=== PATIENT | female | born 1945 | race Caucasian/White ===

== ENCOUNTER → 2018-04-15 14:48 | Outpatient (CLI) | payer MEDICARE, OTHER, SELFPAY ==
--- NOTE | 2018-04-15 | DI.US.S_ITS ---
PROCEDURE: US ARTERIAL DUPLEX LE BI INDICATIONS: PERIPHERAL VASCULAR DISEASE, UNSPECIFIED TECHNIQUE: Color and pulse Doppler interrogation was performed of both lower extremity arterial systems, with image documentation. COMPARISON: None. FINDINGS: Right lower extremity: Common femoral artery: 145 cm/sec, with monophasic flow. Deep femoral artery: 59 cm/sec, with monophasic flow. Proximal superficial femoral artery: 85 cm/sec, with monophasic flow. Mid superficial femoral artery: 87 cm/sec, with monophasic flow. Distal superficial femoral artery: 86 cm/sec, with monophasic flow. Popliteal artery: 52 cm/sec, with monophasic flow. Posterior tibial artery: 35 cm/sec, with monophasic flow. Anterior tibial artery/dorsalis pedis: 14 cm/sec, with monophasic flow. Grimaldo-scale imaging description: Significant calcific and soft plaque throughout Left lower extremity: Common femoral artery: 195 cm/sec, with monophasic flow. Deep femoral artery: 298 cm/sec, with monophasic flow. Proximal superficial femoral artery: 314 cm/sec, with monophasic flow. Mid superficial femoral artery: 36 cm/sec, with monophasic flow. Distal superficial femoral artery: 76 cm/sec, with monophasic flow. Popliteal artery: 51 cm/sec, with monophasic flow. Posterior tibial artery: 24 cm/sec, with monophasic flow. Anterior tibial artery/dorsalis pedis: 28 cm/sec, with monophasic flow. Grimaldo-scale imaging description: Significant calcific and soft plaque throughout IMPRESSION: Monophasic flow is seen within the lower extremity arterial vasculature bilaterally indicating significant proximal disease above the level of the common femoral arteries, likely either a high-grade stenosis of the distal aorta or both iliac arteries, versus occlusion and reperfusion by collateral flow. Note is made of elevation of monophasic flow velocity at the common femoral artery and profunda femoris on the left, consistent with superimposed high-grade stenosis in those 2 areas. Followup by MR angiography with runoff procedure to include the aorta and iliac arteries bilaterally likely is warranted if some form of intervention is anticipated. Dictated by: Guevara Wagner M.D. on 04/15/2018 at 16:08 Approved by: Guevara Wagner M.D. on 04/15/2018 at 16:13
== END ==
PROVIDERS: PCP Internal Medicine; Visit Provider Internal Medicine
DX: I73.9 Peripheral vascular disease, unspecified (principal)
CPT/HCPCS: 93925

== ENCOUNTER 2018-04-20 11:26 | Emergency (ER) | payer MEDICARE, OTHER, SELFPAY ==
[2018-04-20 12:03] VITALS: BP 152/80; PULSE 55; RESP 13; TEMP 36.7; O2SAT 98
--- NOTE | 2018-04-20 13:15 | ED.URI ---
HPI - URI/Sore Throat <WISAM Shah - Last Filed: 04/20/18 21:52> General Chief Complaint: Upper Respiratory Symptoms Stated Complaint: Thinks flu or bronchitis Time Seen by Provider: 04/20/18 13:15 Source: patient Mode of arrival: ambulatory Limitations: no limitations History of Present Illness HPI Narrative: 73-year-old female with history of COPD is a former smoker here for complaint of having cough for the past week. She reports that she has had a productive cough she has also had nasal congestion and sore throat. She does report having some generalized malaise as well. Positive chills no known fever. She is tolerating p.o. intake well. She is ambulatory into the emergency room. She denies any stressors or relievers of her symptoms. She is able speak full sentences. No acute distress. MD Complaint: cough Related Data Previous Rx's Medication Instructions Recorded prednisone 40 mg PO DAILY #8 tab 04/20/18 Allergies Allergy/AdvReac Type Severity Reaction Status Date / Time codeine [CODEINE] Allergy Severe Unverified 05/23/17 12:05 shellfish derived Allergy Unknown Unverified 05/23/17 12:05 [SHELLFISH DERIVED] Review of Systems <WISAM Shah - Last Filed: 04/20/18 21:52> Constitutional Reports chills, Denies fever(s), Denies lethargy, Reports malaise and Denies weakness Eyes Denies change in vision, Denies eye discharge, Denies irritation and Denies loss of vision ENT Ears, Nose, Mouth, and Throat: Denies change in voice, Denies neck pain, Denies sore throat and Denies throat swelling Cardiovascular Denies chest pain, Denies irregular heart rhythm, Denies lightheadedness, Denies palpitations and Denies orthopnea Respiratory Reports cough and Denies wheezing Gastrointestinal Gastrointestinal: Denies abdominal pain, Denies change in bowel habits, Denies diarrhea, Denies nausea and Denies vomiting Genitourinary Denies hematuria, Denies flank pain, Denies urinary incontinence and Denies urinary urgency Musculoskeletal Denies neck pain Integumentary/Breasts Denies pruritus, Denies erythema, Denies rash and Denies wounds Neurologic Denies confusion, Denies loss of vision and Denies weakness Psychiatric Denies anxiety, Denies confusion, Denies depression, Denies homicidal ideation and Denies suicidal ideation Endocrine Denies palpitations Allergic/Immunologic Denies urticaria, Denies throat swelling and Denies wheezing Exam <WISAM Shah - Last Filed: 04/20/18 21:52> Initial Vital Signs Initial Vital Signs: Vital Signs Temperature 98.1 F 04/20/18 12:03 Pulse Rate 55 L 04/20/18 12:03 Respiratory Rate 13 04/20/18 12:03 Blood Pressure 152/80 H 04/20/18 12:03 Pulse Oximetry 98 04/20/18 12:03 Const General: cooperative and well developed Nutritional Appearance: well nourished Orientation: alert, awake, oriented x3 and not confused HENMT Mouth: oral mucosae normal, oropharynx normal and moist mucous membranes Eyes Conjunctivae: conjunctivae normal Sclera: sclerae normal Pupils: PERRL EOM: EOM intact bilaterally Resp Effort & Inspection: normal respiratory effort, able to speak in complete sentences, no respiratory distress and no use of accessory muscles Auscultation: clear to auscultation bilaterally, no rales, no rhonchi and no wheezes Cardio Rate: regular rate Rhythm: regular rhythm Heart Sounds: no click, no gallops, no murmurs and no rubs Pulses: normal peripheral pulses Skin General: no rashes or lesions noted, No jaundice and No petechiae Neuro General: alert, oriented x3, gait normal and no focal motor deficits Speech: speech normal <DO Orly Hays Last Filed: 04/24/18 07:15> Initial Vital Signs Initial Vital Signs: Vital Signs Temperature 98.1 F 04/20/18 12:03 Pulse Rate 55 L 04/20/18 12:03 Respiratory Rate 13 04/20/18 12:03 Blood Pressure 152/80 H 04/20/18 12:03 Pulse Oximetry 98 04/20/18 12:03 Course <WISAM Shah - Last Filed: 04/20/18 21:52> Orders Ordered: ED Orders 04/20/18 13:35 XR chest 2V Stat 04/20/18 14:04 Influenza A and B by PCR Rapid Stat Vital Signs - 8 hr 04/20/18 14:44 Pulse Rate 73 Respiratory Rate 16 Blood Pressure [Right Arm] 117/53 L Pulse Oximetry 93 <Sapphire Chambers DO - Last Filed: 04/24/18 07:15> Orders Ordered: ED Orders 04/20/18 13:35 XR chest 2V Stat 04/20/18 14:04 Influenza A and B by PCR Rapid Stat Vital Signs - 8 hr 04/20/18 14:44 Pulse Rate 73 Respiratory Rate 16 Blood Pressure [Right Arm] 117/53 L Pulse Oximetry 93 MDM - URI/Sore Throat <WISAM Shah - Last Filed: 04/20/18 21:52> Lab Data Lab Results 04/20/18 Range/Units 14:04 Influenza A & B (PCR) Positive, type a A (Negative) MDM Narrative Medical decision making narrative: Chest x-ray was obtained and was negative for any acute findings. Influenza swab was obtained and was positive for influenza A. Due to continued cough and history of COPD she is prescribed a short course of prednisone to help with exacerbation of her COPD. Follow up with primary care provider later this week. Plenty of fluids and rest. [id number] Tylenol or Motrin as needed for any discomfort for any worsening symptoms return emergency room. <Sapphire Chambers DO - Last Filed: 04/24/18 07:15> Lab Data Lab Results 04/20/18 Range/Units 14:04 Influenza A & B (PCR) Positive, type a A (Negative) Discharge Plan Departure Patient Disposition: Home Clinical Impression: Influenza A Discharge Date/Time: 04/20/18 15:09 Interventions: ED Discharge Assessment Last Done: 04/20/18 15:16 Instructions: DI for Influenza -- Adult Activity Restrictions/Additional Instructions: Chest x-ray was obtained today and was negative for any acute findings. No signs of pneumonia. Influenza swab was obtained today and was positive for influenza. Plenty of fluids and rest. [id number] Tylenol or Motrin as needed for any discomfort or fevers. High due to prolonged cough will treat for COPD exacerbation with short course of prednisone. Follow up with her primary care provider later this week. For any worsening symptoms return to the emergency room. Prescriptions: New prednisone 20 mg tablet 40 mg PO DAILY Qty: 8 RF: 0 Referrals: Filipe Soni MD [Primary Care Provider] - <Sapphire Chambers DO - Last Filed: 04/24/18 07:15> Cosign ED Attending Cosignature Attestation: I was immediately available in the department for consultation. This documentation has been reviewed and I agree with assessment and plan. Supervised by Sapphire Chambers, DO
--- NOTE | 2018-04-20 13:35 | DI.RAD.S_ITS ---
PROCEDURE: XR CHEST 2V INDICATIONS: cough TECHNIQUE: 2 views of the chest were acquired. COMPARISON: None. FINDINGS: Surgical changes and devices: None. Lungs and pleura: Stable appearance of minimal streaky basilar opacities likely representing atelectasis versus scarring. No acute consolidation or airspace disease. Lungs are otherwise clear. No pleural effusions or pneumothorax. Mediastinum: Mediastinal contours are normal. Heart size is normal. Bones and chest wall: No suspicious bony abnormalities. Soft tissues appear unremarkable. IMPRESSION: Stable examination of the chest without acute cardiopulmonary abnormalities or focal airspace disease. Dictated by: Dipak Mondragon M.D. on 04/20/2018 at 14:21 Approved by: Dipak Mondragon M.D. on 04/20/2018 at 14:23
--- NOTE | 2018-04-20 14:27 | PC.NURSE ---
hx of bronchitis, reports, coughing for 2 weeks with yellow sputum, denies fever or vomiting. breath sound clear to auscultate through out.
--- NOTE | 2018-04-20 14:39 | PC.NURSE ---
xray to be read.
[2018-04-20 14:44] VITALS: BP 117/53; PULSE 73; RESP 16; O2SAT 93
--- NOTE | 2018-04-20 14:46 | PC.NURSE ---
orange juice and crackers provided, states, she has been waiting long, and very hungry.
== END 2018-04-20 15:09 | disposition home or self-care (01) ==
PROVIDERS: Emergency Provider Nurse Practitioner Family; PCP Internal Medicine
DX: J11.1 Influenza due to unidentified influenza virus with other respiratory manifestations (principal)
CPT/HCPCS: 71046; 87400; 99283

== ENCOUNTER 2018-10-12 00:01 | Emergency (ER) | payer MEDICARE, OTHER, SELFPAY ==
[2018-10-12 00:47] VITALS: BP 162/65; PULSE 52; RESP 24; TEMP 36.4; O2SAT 97; BMI 27.4
--- NOTE | 2018-10-12 00:47 | DI.RAD.S_ITS ---
PROCEDURE: XR CHEST 1V INDICATIONS: shortness of breath, cough 4.5 days TECHNIQUE: One view of the chest was acquired. COMPARISON: [facility], , CHEST 2 VIEW, 03/14/2017, 10:14. [facility], , CHEST 2 VIEW, 10/27/2014, 0:36. [facility], , XR CHEST 2V, 04/20/2018, 13:53. FINDINGS: Surgical changes and devices: None. Lungs and pleura: Lungs are clear. No pleural effusions or pneumothorax. The lungs are hyperexpanded. Mediastinum: Mediastinal contours appear normal. Heart size is normal. Atherosclerotic calcification of the aortic arch is noted. Bones and chest wall: No suspicious bony lesions. Age-appropriate bony degenerative changes are seen. Overlying soft tissues appear unremarkable. IMPRESSION: Hyperexpanded lungs, without an acute cardiopulmonary process identified. Dictated by: Anthony Cowart M.D. on 10/12/2018 at 8:00 Approved by: Anthony Cowart M.D. on 10/12/2018 at 8:01
[2018-10-12 00:57] VITALS: BP 132/51; PULSE 55; RESP 18; O2SAT 92
[2018-10-12 01:14] LABS: Add Manual Diff / Slide Review NO; Basophils Absolute Auto 100 /uL (0-100); Basophils Percent Auto 1.4 % (0-2); Eosinophils Absolute Auto 600 /uL (0-450); Eosinophils Percent Auto 6.1 % (2-4); Hematocrit 38.6 % (36-46); Hemoglobin 13.2 g/dL (12.0-16.0); Lymphocytes Absolute Auto 3400 /uL (1100-4500); Lymphocytes Percent Auto 35.4 % (25-40); Mean Corpuscular HGB Conc 34.2 % (30-36); Mean Corpuscular Hemoglobin 32.7 PG (26-34); Mean Corpuscular Volume 95.7 fL (80-100); Monocytes Absolute Auto 800 /uL (0-900); Monocytes Percent Auto 8.5 % (3-14); Neutrophils Absolute Auto 4700 /uL (1500-7000); Neutrophils Percent Auto 48.6 % (50-75); Platelet Count 256 X10^3/uL (150-400); Red Blood Cell Count 4.04 X10^6/uL (4.0-5.2); Red Cell Distribution Width 13.3 % (11.6-14.8); White Blood Cell Count 9.6 X10^3/uL (4.5-11.0)
[2018-10-12 01:16] LABS: INR 0.9 (0.9-1.3); Prothrombin Time 9.8 SECONDS (10.1-12.7)
[2018-10-12 01:18] LABS: PTT Partial Thromboplastin Tim 31 SECONDS (26.4-36.2)
[2018-10-12 01:19] LABS: Alanine Aminotransferase 22 IU/L (9-52); Albumin 3.9 g/dL (3.5-5.0); Albumin Globulin Ratio 1.4 (1.0-2.8); Alkaline Phosphatase 50 U/L (38-126); Aspartate Aminotransferase 21 IU/L (14-36); Bilirubin Total 0.4 mg/dL (0.2-1.3); Blood Urea Nitrogen 15 mg/dL (7-17); Calcium 9.1 mg/dL (8.4-10.2); Carbon Dioxide 33 mmol/L (22-32); Chloride 98 mmol/L (98-107); Creatine Kinase 38 U/L (30-135); Estimated Glomerular Filt Rate > 60.0 mL/min (>60); Globulin 2.7 g/dL (1.7-4.1); Glucose 145 mg/dL (80-110); HEMOLYSIS < 15 (0-50); Lipase 100 U/L (23-300); Potassium 4.8 mmol/L (3.4-5.1); Sodium 135 mmol/L (137-145); Total Protein 6.6 g/dL (6.3-8.2)
[2018-10-12 01:24] VITALS: BP 133/50; PULSE 56; RESP 18; O2SAT 94
[2018-10-12 01:27] LABS: B Type Natriuretic Peptide 133 (<100)
[2018-10-12] MEDS: ASPIRIN 81 MG CHEW TAB 324 MG PO (01:28)
[2018-10-12 01:31] LABS: Troponin I < 0.012 ng/mL (0.01-0.034)
[2018-10-12] MEDS: SODIUM CHLORIDE 0.9% 1,000 ML 150 ML IV (01:44)
--- NOTE | 2018-10-12 02:03 | ED_ITS ---
HPI - SOB/Dyspnea General Chief Complaint: Shortness of Breath/Dyspnea Stated Complaint: difficulty breathing, coughing 4-5 days Time Seen by Provider: 10/12/18 01:57 Source: patient and family () Mode of arrival: ambulatory Limitations: no limitations History of Present Illness HPI Narrative: This is a 73-year-old comes emergency department complaint of shortness of breath. She states she has had shortness of breath and she quit smoking tobacco 5 years ago. She has been increasingly short of breath for the last week. She finds that she short of breath with exertion, she denies any chest pressure or pain. She does have a cough which has some clear productive phlegm which is normal for her. She states she can lay flat on her side and she does find if she lays flat on her back it makes her cough more. She does not have to be reclined to sleep. She denies any fevers or chills. She states she also has runny nose which is worsened by the weather and pollen and will make her symptoms worse. She has a history of stroke she does not know she has COPD but states she was a long-time smoker for decades she was on albuterol and what sounds like a steroid inhaler. She stop the steroid inhaler because she states someone told her that she could take them together and it was not as helpful as the albuterol. She has a history of hypertension, dyslipidemia and takes aspirin and Plavix as well as metformin and Lantus. States her only prior surgeries hysterectomy. Primary care is Dr. Soni. Related Data Previous Rx's Medication Instructions Recorded prednisone 40 mg PO DAILY #8 tab 04/20/18 furosemide [Lasix] 20 mg PO DAILY #3 tab 10/12/18 prednisone 50 mg PO DAILY #5 tab 10/12/18 Allergies Allergy/AdvReac Type Severity Reaction Status Date / Time codeine [CODEINE] Allergy Unknown Verified 10/12/18 00:47 shellfish derived Allergy Unknown Verified 10/12/18 00:47 [SHELLFISH DERIVED] Review of Systems Review of Systems ROS Unobtainable: All systems reviewed & are unremarkable except as noted in HPI and below Constitutional Constitutional: Denies chills, Denies fever(s), Denies lethargy and Denies weakness Neurologic Neurologic: Denies weakness PFSH Social History Smoking Status: Current every day smoker Exam Narrative Exam Narrative: GEN: well nourished, well appearing elderly female, alert and oriented x 3, patient appears to be in mild distress. HEENT: Atraumatic, pupils are equal round reactive to light, extraocular mo vements are intact, nares are clear. Throat is clear without any exudates, erythema, tonsillar enlargement or uvular deviation HEART: Regular rate and rhythm without murmur, clicks, rubs. No carotid bruits, pulses are equal in upper and lower extremities. Mild pedal edema. LUNGS:Lungs decreased bilaterally, very mild inspiratory wheeze, no rales, crackles, chest moves symmetrically. Tachypnea or accessory muscle use. Patient can speak in full sentences. ABD:bowel sounds normal, soft, non-tender, no guarding, rebound, rigidity, no masses noted, no hepatosplenomegaly :No CVA tenderness MSCL: Non-tender, no muscle atrophy, muscles strength 5/5 upper and lower extremities, full range of motion, normal gait NEURO:CN 2-12 intact, sensation normal Initial Vital Signs Initial Vital Signs: Vital Signs Temperature 97.5 F L 10/12/18 00:47 Pulse Rate 52 L 10/12/18 00:47 Respiratory Rate 24 10/12/18 00:47 Blood Pressure 162/65 H 10/12/18 00:47 Pulse Oximetry 97 10/12/18 00:47 Course Orders Ordered: ED Orders 10/12/18 00:47 XR chest 1V Stat EKG-12 Lead Stat 10/12/18 00:55 B Type Natriuretic Peptide Stat Complete Blood Count AUTO DIFF Stat Comprehensive Metabolic Panel Stat Lipase Stat Partial Thromboplastin Time Stat Prothrombin Time INR Stat Troponin & CK Cardiac Panel Stat 10/12/18 02:00 Urine Culture Stat Urine Microscopic Stat Discontinued Medications Albuterol/Ipratropium (Duoneb) 3 ml INH NOW ONE Stop: 10/12/18 02:24 Last Admin: 10/12/18 02:30 Dose: 3 ml Documented by: ARIS Aspirin (Aspirin Chew) 324 mg PO NOW ONE Stop: 10/12/18 00:48 Last Admin: 10/12/18 01:28 Dose: 324 mg Documented by: KRISTA Sodium Chloride (Normal Saline 0.9%) 1,000 mls @ 150 mls/hr IV CONT KIMBERLY Last Infusion: 10/12/18 02:30 Dose: 0 mls/hr Documented by: Admin: 10/12/18 01:44 Dose: 150 mls/hr Documented by: KRISTA Methylprednisolone (Solu-Medrol 125 Mg Vial) 125 mg IV NOW ONE Stop: 10/12/18 02:24 Last Admin: 10/12/18 02:31 Dose: 125 mg Documented by: KRISTA Vital Signs Vital signs: Vital Signs - 8 hr 10/12/18 00:47 10/12/18 00:57 10/12/18 01:24 Temperature 97.5 F L Pulse Rate 52 L 55 L 56 L Respiratory Rate 24 18 18 Blood Pressure 162/65 H Blood Pressure [Left Arm] 132/51 L 133/50 L Pulse Oximetry 97 92 94 10/12/18 02:30 10/12/18 03:04 Temperature Pulse Rate 53 L 53 L Respiratory Rate 18 18 Blood Pressure Blood Pressure [Left Arm] 141/57 H Pulse Oximetry 95 98 MDM - SOB/Dyspnea Lab Data Attestation: I reviewed the patient's lab results. Result diagrams: 10/12/18 00:55 10/12/18 00:55 Labs: Lab Results 10/12/18 10/12/18 10/12/18 Range/Units 00:55 00:55 00:55 WBC 9.6 (4.5-11.0) X10^3/uL RBC 4.04 (4.0-5.2) X10^6/uL Hgb 13.2 (12.0-16.0) g/dL Hct 38.6 (36-46) % MCV 95.7 (80-100) fL MCH 32.7 (26-34) PG MCHC 34.2 (30-36) % RDW 13.3 (11.6-14.8) % Plt Count 256 (150-400) X10^3/uL Neut % (Auto) 48.6 L (50-75) % Lymph % (Auto) 35.4 (25-40) % [place] % (Auto) 8.5 (3-14) % Eos % (Auto) 6.1 H (2-4) % Baso % (Auto) 1.4 (0-2) % Neut # (Auto) 4700 (4659-7645) /uL Lymph # (Auto) 3400 (7663-8917) /uL [place] # (Auto) 800 (0-900) /uL Eos # (Auto) 600 H (0-450) /uL Baso # (Auto) 100 (0-100) /uL PT 9.8 L (10.1-12.7) SECONDS INR 0.9 (0.9-1.3) APTT 31 (26.4-36.2) SECONDS Sodium 135 L (137-145) mmol/L Potassium 4.8 (3.4-5.1) mmol/L Chloride 98 (98-107) mmol/L Carbon Dioxide 33 H (22-32) mmol/L BUN 15 (7-17) mg/dL Creatinine 0.50 L (0.52-1.04) mg/dL Estimated GFR > 60.0 (>60) mL/min BUN/Creatinine Ratio 30.0 H (6-22) Glucose 145 H (80-110) mg/dL Calcium 9.1 (8.4-10.2) mg/dL Total Bilirubin 0.4 (0.2-1.3) mg/dL AST 21 (14-36) IU/L ALT 22 (9-52) IU/L Alkaline Phosphatase 50 (38-126) U/L Total Creatine Kinase 38 (30-135) U/L CK-MB (CK-2) TNP CK-MB (CK-2) Rel Index TNP Troponin I < 0.012 (0.01-0.034) ng/mL B-Natriuretic Peptide 133 H (<100) Total Protein 6.6 (6.3-8.2) g/dL Albumin 3.9 (3.5-5.0) g/dL Globulin 2.7 (1.7-4.1) g/dL Albumin/Globulin Ratio 1.4 (1.0-2.8) Lipase 100 (23-300) U/L Urine RBC (0-5/HPF) Urine WBC (0-5/HPF) Ur Squamous Epith Cells (0-5/HPF) Urine Bacteria (None) Ur Culture Indicated? 10/12/18 Range/Units 02:00 WBC (4.5-11.0) X10^3/uL RBC (4.0-5.2) X10^6/uL Hgb (12.0-16.0) g/dL Hct (36-46) % MCV (80-100) fL MCH (26-34) PG MCHC (30-36) % RDW (11.6-14.8) % Plt Count (150-400) X10^3/uL Neut % (Auto) (50-75) % Lymph % (Auto) (25-40) % [place] % (Auto) (3-14) % Eos % (Auto) (2-4) % Baso % (Auto) (0-2) % Neut # (Auto) (6507-9499) /uL Lymph # (Auto) (4456-0440) /uL [place] # (Auto) (0-900) /uL Eos # (Auto) (0-450) /uL Baso # (Auto) (0-100) /uL PT (10.1-12.7) SECONDS INR (0.9-1.3) APTT (26.4-36.2) SECONDS Sodium (137-145) mmol/L Potassium (3.4-5.1) mmol/L Chloride (98-107) mmol/L Carbon Dioxide (22-32) mmol/L BUN (7-17) mg/dL Creatinine (0.52-1.04) mg/dL Estimated GFR (>60) mL/min BUN/Creatinine Ratio (6-22) Glucose (80-110) mg/dL Calcium (8.4-10.2) mg/dL Total Bilirubin (0.2-1.3) mg/dL AST (14-36) IU/L ALT (9-52) IU/L Alkaline Phosphatase (38-126) U/L Total Creatine Kinase (30-135) U/L CK-MB (CK-2) CK-MB (CK-2) Rel Index Troponin I (0.01-0.034) ng/mL B-Natriuretic Peptide (<100) Total Protein (6.3-8.2) g/dL Albumin (3.5-5.0) g/dL Globulin (1.7-4.1) g/dL Albumin/Globulin Ratio (1.0-2.8) Lipase (23-300) U/L Urine RBC None seen (0-5/HPF) Urine WBC 0-1/hpf (0-5/HPF) Ur Squamous Epith Cells 1-5 /hpf (0-5/HPF) Urine Bacteria Few (2-10) H (None) Ur Culture Indicated? Specimen cultured Urine Dip Bedside Urine Glucose Negative Bedside Urine Bilirubin - Negative Urine Specific [place] 1.005 Bedside Urine Occult Blood - Negative Bedside Urine pH 6.0 Bedside Urine Protein +/- 15 Bedside Urine Urobilinogen - Negative Bedside Urine Nitrite - Negative Bedside Urine Leukocytes + 70 Esterase Imaging Data Chest x-ray: My impression: Patient's chest x-ray appears similar to prior with streaky opacities likely atelectasis versus scarring. There is no acute consolidation, no passed secretion responsive pneumonia, no pulmonary edema appreciated. No pneumothorax or pleural effusion. No acute changes to mediastinal contours. ECG Data Attestation: I personally reviewed and interpreted this ECG as follows: Prior ECG tracings: not available for review Interpretation: Sinus bradycardia first-degree AV block, rate of 54, P are 212, QRS of 112 and QTC of 409. No priors available. MDM Narrative Medical decision making narrative: Patient's chest x-ray does not show any acute changes come physical exam she has some mild pedal edema but otherwise is not fluid overloaded. no acute changes, sodium slightly low 135 CO2 is elevated at 33 and glucose is 145 with a BNP of 133 and a negative troponin. For patient has had slowly worsening shortness of breath which is acutely worsen. She quit using her steroid inhaler 2 or 3 weeks ago which may be contributing to her symptoms and we had a long discussion about how this medication is important to take whether she feels good or bad even though she does not appreciate a big change. Discharge Plan Departure Patient Disposition: Home Clinical Impression: COPD with exacerbation Discharge Date/Time: 10/12/18 03:12 Instructions: Chronic Obstructive Pulmonary Disease Activity Restrictions/Additional Instructions: Follow up with your physician in the next week for recheck, call for an appointment on Sunday. Continue your albuterol inhaler every 4 hours as needed. Continue your steroid inhaler daily whether your lungs feel good or bad. Take steroids once daily until gone. If the swelling in your extremities worsening, start diuretic. Return to the emergency department for fevers greater than 100.4 F, worsening shortness of breath, new chest pain or pressure, worsening swelling in your lower extremities, lightheadedness, passing out, persistent vomiting or new or concerning symptoms. Prescriptions: New prednisone 50 mg tablet 50 mg PO DAILY Qty: 5 RF: 0 furosemide [Lasix] 20 mg tablet 20 mg PO DAILY Qty: 3 RF: 0 No Action prednisone 20 mg tablet 40 mg PO DAILY Qty: 8 RF: 0 Referrals: Filipe Soni MD [Primary Care Provider] -
[2018-10-12 02:10] LABS: RBC Urine None Seen (0-5/HPF)
[2018-10-12 02:18] LABS: Bacteria Urine Few (2-10); Culture Indicated Urine Specimen Cultured; Squamous Epithelial Cell Urine 1-5 /HPF (0-5/HPF); WBC Urine 0-1/HPF (0-5/HPF)
[2018-10-12 02:30] VITALS: PULSE 53; RESP 18; O2SAT 95
[2018-10-12] MEDS: ALBUTEROL/IPRATROPIUM 3 ML AMPUL INH (02:30)
[2018-10-12] MEDS: methylPREDNISolone 125 MG/2 ML VIAL IV (02:31)
[2018-10-12 03:04] VITALS: BP 141/57; PULSE 53; RESP 18; O2SAT 98
== END 2018-10-12 03:12 | disposition home or self-care (01) ==
PROVIDERS: Emergency Provider Emergency Medicine; PCP Internal Medicine
DX: J44.1 Chronic obstructive pulmonary disease with (acute) exacerbation (principal)
CPT/HCPCS: 36415; 71045; 80053; 81003; 81015; 82550; 83690; 83880; 84484; 85025; 85610; 85730; 87086; 93005; 94640; 96361; 96374; 99283; 99285; J2930

== ENCOUNTER 2019-06-22 12:27 | Emergency (ER) | payer MEDICARE, OTHER, SELFPAY ==
[2019-06-22 12:31] VITALS: BP 149/63; PULSE 60; RESP 14; TEMP 35.7; O2SAT 96; BMI 30.6
--- NOTE | 2019-06-22 12:43 | ED.GENADULT ---
HPI - General Adult General Chief complaint: Diabetic Problem Stated complaint: Generalized Weakness Source: family and EMS Mode of arrival: EMS History of Present Illness HPI narrative: CC: acute hypoglycemia HPI: The patient is a 74-year-old female who was at home alone by herself when she took her Lantus insulin 45 units and then did not eat. Her was out of the house doing errands and when he came back he thought that the patient was just sleeping. However the patient did not respond and was very difficult to arouse. EMS was called and the paramedics noted that her blood sugar was 37. They administered the 25 IV and her blood sugar came up to 219. When she arrived in the emergency department her blood sugar was 178 when we checked it. The patient was much more awake and alert. She had no other complaints. She denies any chest pain any cough difficulty in breathing any seizure activity or seizures, no change in vision loss of vision or double vision. She denied having a headache numbness or tingling paresthesias anesthesia is or paresis. She denies having any pain or discomfort. The patient is a former smoker having not smoked for the last 5 years. She does not drink alcohol use any drugs or use marijuana. Related Data Previous Rx's Medication Instructions Recorded prednisone 40 mg PO DAILY #8 tab 04/20/18 furosemide [Lasix] 20 mg PO DAILY #3 tab 10/12/18 prednisone 50 mg PO DAILY #5 tab 10/12/18 Allergies Allergy/AdvReac Type Severity Reaction Status Date / Time codeine [CODEINE] Allergy Unknown Verified 06/22/19 12:31 shellfish derived Allergy Unknown Verified 06/22/19 12:31 [SHELLFISH DERIVED] Review of Systems Review of Systems Narrative: Her review of systems were all negative except for those mentioned in the history of present illness. Patient History Social History Smoking Status: Current every day smoker Smoking Status: Current every day smoker Substance Use Type: does not use Exam Narrative Exam Narrative: PHYSICAL EXAM: CONSTITUTIONAL: Awake, Alert, Oriented, Coherent, Cooperative in NAD. Does not appear toxic or ill at this time. HEAD: AT/NC EENT: PERRL, FROM of eyes, no discharge, no nystagmus MOUTH: The patient is wearing a mask. NECK: Supple, no obvious JVD, Trachea is midline without stridor, no palpable LN. SPINE: Palpation of the cervical, Thoracic, Lumbar or Sacral spine reveals no gross deformity or tenderness. No CVA tenderness. THORAX: No deformity, retractions, chest wall tenderness. LUNGS: Clear, symmetrical breath sounds without respiratory distress. HEART: Normal heart tones, regular rhythm and rate without murmur. ABDOMEN: Soft, non-tender, normal bowel sounds without guarding, rebound, rigidity or palpable mass. EXTREMITIES: No edema, deformity, tenderness or cyanosis. SKIN: No rash, bruising, petechiae or purpura. NEURO: Awake, alert, oriented, conversive, cranial nerves II-XII are symmetrical , moves all 4 extremities and is ambulatory. Initial Vital Signs Initial Vital Signs: Vital Signs Temperature 96.3 F L 06/22/19 12:31 Pulse Rate 60 06/22/19 12:31 Respiratory Rate 14 06/22/19 12:31 Blood Pressure 149/63 H 06/22/19 12:31 Pulse Oximetry 96 06/22/19 12:31 Course Course Course Narrative: The patient's laboratory chemistries were within normal limits and the patient was discharged home. She was told that she needs to eat something every 2 hours for the next 12 hours. Prior to leaving we gave her something to eat. She was advised to go out and eat a larger meal. Orders Ordered: ED Orders 06/22/19 12:39 CMP [Comprehensive Metabolic Panel] Stat Complete Blood Count AUTO DIFF Stat EKG-12 Lead Stat Vital Signs Vital signs: Vital Signs - 8 hr 06/22/19 12:31 06/22/19 13:23 06/22/19 14:06 Temperature 96.3 F L Pulse Rate 60 53 L 57 L Respiratory Rate 14 16 20 Blood Pressure 149/63 H Blood Pressure [Right Arm] 125/60 120/80 Pulse Oximetry 96 95 96 Medical Decision Making Medical Records Medical records reviewed: Yes I reviewed the patient's medical records. Lab Data Lab results reviewed: Yes I reviewed the patient's lab results. Labs: Point of Care Testing Glucose POC 167 Point of care testing: Point of Care Testing Glucose POC 167 ECG Data Interpretation: The patient's EKG obtained on June 21 at 12:3 6:05 a.m. revealed sinus bradycardia with a first-degree AV block borderline first-degree AV block of [address] interval QRS is 120 milliseconds QTC is slightly prolonged at 469 milliseconds normal axis. The patient has nonspecific ST segment changes that are non diagnostic. There are no ST segment or T-wave changes suggestive of acute ischemia or injury. Discharge Plan Departure Patient Disposition: Home Clinical Impression: Hypoglycemia Discharge Date/Time: 06/22/19 14:26 Instructions: DI for Diabetes Type 2, DI for Hypoglycemia Activity Restrictions/Additional Instructions: 1. Be careful about administering your insulin to make sure that the dosage is correct in that you are eating appropriately when taking your insulin. 2. Follow-up with your primary care physician to be sure that you are taking your insulin accordingly and that your medication dosage does not need to be adjusted. 3. If you develop another hypoglycemic reaction need to return to the emergency department. 4. If you develop chest pain that lasts longer than 15-20 minutes continuous without relief from the pain medicine, developed shortness of breath feel faint dizzy or pass out you need to return to the emergency department otherwise follow-up with your primary care physician Prescriptions: No Action prednisone 20 mg tablet 40 mg PO DAILY Qty: 8 RF: 0 prednisone 50 mg tablet 50 mg PO DAILY Qty: 5 RF: 0 furosemide [Lasix] 20 mg tablet 20 mg PO DAILY Qty: 3 RF: 0 Referrals: Filipe Soni MD [Primary Care Provider] -
[2019-06-22 13:23] VITALS: BP 125/60; PULSE 53; RESP 16; O2SAT 95
[2019-06-22 14:06] VITALS: BP 120/80; PULSE 57; RESP 20; O2SAT 96
--- NOTE | 2019-06-22 14:26 | PC.NURSE ---
Pt cautioned to eat a small meal every two hours for the rest of the day, especially before bed.
== END 2019-06-22 14:26 | disposition home or self-care (01) ==
PROVIDERS: Emergency Provider Emergency Medicine; PCP Internal Medicine
DX: E11.649 Type 2 diabetes mellitus with hypoglycemia without coma (principal); R03.0 Elevated blood-pressure reading, without diagnosis of hypertension; Z79.4 Long term (current) use of insulin
CPT/HCPCS: 82962; 93005; 99282; 99283

== ENCOUNTER 2021-11-15 11:39 | Inpatient (IN) | payer MEDICARE, OTHER, SELFPAY ==
[2021-11-15] VITALS (14 sets, daily range): BP systolic 152–203; BP diastolic 48–82; PULSE 57–83; RESP 17–31; TEMP 35.7–37.2; O2SAT 87–99; BMI 28.3
--- NOTE | 2021-11-15 11:51 | DI.RAD.S_ITS ---
PROCEDURE: XR CHEST 2V INDICATIONS: shortness of breath TECHNIQUE: 2 views of the chest were acquired. COMPARISON: [facility], , XR CHEST 1V, 10/12/2018, 0:52. FINDINGS: Surgical changes and devices: None. Lungs and pleura: There is mild blunting of the costophrenic angles. Mediastinum: Mediastinal contours are normal. Heart size is normal. Bones and chest wall: No suspicious bony abnormalities. Soft tissues appear unremarkable. IMPRESSION: Mild costophrenic angle blunting suggestive of trace effusions. Dictated by: Mikayla Hanson M.D. on 11/15/2021 at 12:40 Approved by: Mikayla Hanson M.D. on 11/15/2021 at 12:41
[2021-11-15 12:22] LABS: Add Manual Diff / Slide Review NO; Basophils Absolute Auto 100 /uL (0-100); Basophils Percent Auto 1.2 % (0-2); Eosinophils Absolute Auto 100 /uL (0-450); Eosinophils Percent Auto 1.5 % (2-4); Hematocrit 37.7 % (36-46); Hemoglobin 12.8 g/dL (12.0-16.0); Lymphocytes Absolute Auto 1900 /uL (1100-4500); Lymphocytes Percent Auto 22.8 % (25-40); Mean Corpuscular HGB Conc 33.9 % (30-36); Mean Corpuscular Hemoglobin 31.9 PG (26-34); Mean Corpuscular Volume 94.3 fL (80-100); Monocytes Absolute Auto 500 /uL (0-900); Monocytes Percent Auto 6.5 % (3-14); Neutrophils Absolute Auto 5700 /uL (1500-7000); Platelet Count 278 X10^3/uL (150-400); Red Cell Distribution Width 13.2 % (11.6-14.8); White Blood Cell Count 8.4 X10^3/uL (4.5-11.0)
[2021-11-15 12:34] LABS: Lactate (Lactic Acid) 1.3 mmol/L (0.7-2.1); Prothrombin Time 10.9 SECONDS (10.1-12.7)
[2021-11-15 12:35] LABS: Alanine Aminotransferase 28 IU/L (<35); Albumin Globulin Ratio 1.3 (1.0-2.8); Alkaline Phosphatase 56 U/L (38-126); Aspartate Aminotransferase 28 IU/L (14-36); BUN Creatinine Ratio 16.7 (6-22); Bilirubin Total 0.4 mg/dL (0.2-1.3); Blood Urea Nitrogen 9 mg/dL (7-17); Calcium 9.4 mg/dL (8.4-10.2); Carbon Dioxide 31 mmol/L (22-32); Chloride 96 mmol/L (98-107); Estimated Glomerular Filt Rate > 60 mL/min (>60); Glucose 166 mg/dL (80-110); HEMOLYSIS < 15 (0-50); Potassium 4.9 mmol/L (3.4-5.1); Sodium 134 mmol/L (137-145)
[2021-11-15 12:39] LABS: COVID19 -Nasal RAPID POSITIVE (Negative)
[2021-11-15 12:44] LABS: NT-proBNP (BNP-Adult 18+) 2020 pg/mL (<450)
--- NOTE | 2021-11-15 12:53 | ED.SOB ---
HPI - SOB/Dyspnea General Chief Complaint: Shortness of Breath/Dyspnea Stated Complaint: Cough, diarrhea x 10 days Time Seen by Provider: 11/15/21 12:07 Source: patient Mode of arrival: Ambulatory Limitations: no limitations History of Present Illness HPI Narrative: 76-year-old female former smoker with history of COPD presents with her in the chief complaint of increasing cough and shortness of breath for least the past week. She states that she is become increasingly short of breath with minimal exertion and is coughing and hacking, largely a dry cough. She denies any chills but has had subjective fever. She denies chest pain. She is nauseated but denies vomiting. She is had multiple episodes of diarrhea and is overall feeling poorly, weak, fatigued and under the weather. She denies history of blood clot, recent travel, hospitalization or known cancer. She denies any lower extremity pain, swelling, redness or warmth. Initial pulse ox 85% with increased work of breathing. Related Data Home Medications Medication Instructions Recorded Confirmed atenolol 50 mg tablet 50 mg DAILY 11/15/21 11/15/21 atorvastatin 80 mg tablet 80 mg PO DAILY 11/15/21 11/15/21 brimonidine 0.15 % eye drops 1 drp EYE-RIGHT BID 11/15/21 11/15/21 clopidogrel 75 mg tablet (Plavix) 75 mg PO DAILY 11/15/21 11/15/21 conjugated estrogens 0.625 mg 0.625 mg PO DAILY 11/15/21 11/15/21 tablet (Premarin) insulin glargine 100 unit/mL 25 unit SUBCUT DAILY 11/15/21 11/15/21 subcutaneous cartridge latanoprost 0.005 % eye drops 1 drp EYE-RIGHT BEDTIME 11/15/21 11/15/21 lisinopril 20 mg tablet 20 mg PO DAILY 11/15/21 11/15/21 metformin 500 mg tablet 500 mg PO BID 11/15/21 11/15/21 timolol 0.25 % eye drops 1 drp EYE-RIGHT BID 11/15/21 11/15/21 Allergies Allergy/AdvReac Type Severity Reaction Status Date / Time codeine [CODEINE] Allergy Unknown Verified 11/15/21 11:52 shellfish derived Allergy Unknown Verified 11/15/21 11:52 [SHELLFISH DERIVED] Review of Systems Review of Systems Narrative: GENERAL: See HPI HEENT: Denies sinus pain, ear pain, sore throat, difficulty swallowing, dizziness. RESPIRATORY: See HPI CARDIOVASCULAR: Denies chest pain, palpitations, orthopnea, edema, GASTROINTESTINAL: See HPI : Denies dysuria, frequency, incontinence, hematuria, urinary retention. MUSCULOSKELETAL: denies weakness, joint pain, or bony pain SKIN: Denies rash, skin lesions, or other NEUROLOGIC: Denies weakness, headache, numbness, change in speech, confusion, seizures, incoordination. PSYCHIATRIC: No concerning psychosocial issues. 12 point review of systems is negative except for those stated above Patient History Social History household members: spouse Smoking Status: Former smoker Smoking Status: Former smoker alcohol intake frequency: holidays/special occasions only Substance Use Type: does not use Exam Narrative Exam Narrative: GENERAL: [76] year old patient appears stated age. Well-developed patient, in mild distress. HEAD: Atraumatic. Normocephalic. EYES: Pupils equal round and reactive. Extraocular motions intact. No scleral icterus. No injection or drainage. ENT: Nose without bleeding, purulent drainage. Throat without erythema, tonsillar hypertrophy or exudate. Airway patent. NECK: Trachea midline. Non tender CARDIOVASCULAR: Regular rate and rhythm without murmurs, gallops, or rubs. RESPIRATORY: Increased work of breathing, harsh sounding cough, no rales. GASTROINTESTINAL: Abdomen soft, non-tender, nondistended. EXTREMITIES: No edema or joint tenderness. BACK: Nontender without deformity or crepitance. No flank tenderness. NEURO: AOx3. SKIN: Dry mucous membranes, poor skin turgor. No rash or erythema of visible areas Initial Vital Signs Initial Vital Signs: Vital Signs Temperature 98.9 F 11/15/21 11:45 Pulse Rate 83 11/15/21 11:45 Respiratory Rate 29 H 11/15/21 11:45 Blood Pressure 203/82 H 11/15/21 11:45 Pulse Oximetry 87 L 11/15/21 11:45 Oxygen Delivery Method 11/15/21 11:45 Course Orders Ordered: ED Orders 11/18/21 05:00 BMP [Basic Metabolic Panel] DAILY CBC Auto Diff [Complete Blood Count AUTO DIFF] DAILY Acetaminophen (Acetaminophen 325 Mg Tablet) 650 mg PO Q6HR PRN PRN Reason: Fever/Mild Pain (1-3) Albuterol (Albuterol 2.5 Mg/3 Ml Neb (Adult)) 2.5 mg INH RTQ6HR PRN PRN Reason: Shortness Of Breath Atenolol (Atenolol 50 Mg Tablet) 50 mg PO DAILY [facility] Last Admin: 11/17/21 10:04 Dose: 50 mg Documented By: Admin: 11/16/21 09:12 Dose: 50 mg Documented By: WILMER Atorvastatin Calcium (Atorvastatin 20 Mg Tablet) 80 mg PO BEDTIME [facility] Last Admin: 11/17/21 20:06 Dose: 80 mg Documented By: Admin: 11/16/21 21:32 Dose: 80 mg Documented By: Admin: 11/15/21 20:58 Dose: 80 mg Documented By: MISTY Benzonatate (Benzonatate 100 Mg Capsule) 100 mg PO TID PRN PRN Reason: Cough Last Admin: 11/17/21 06:30 Dose: 100 mg Documented By: Admin: 11/16/21 21:32 Dose: 100 mg Documented By: Admin: 11/16/21 17:02 Dose: 100 mg Documented By: WILMER Brimonidine Tartrate (Brimonidine 0.2% Ophth 5 Ml) 1 drops EYE-RIGHT BID [facility] Last Admin: 11/17/21 20:28 Dose: 1 drops Documented By: Admin: 11/17/21 10:39 Dose: 1 drops Documented By: Admin: 11/16/21 21:29 Dose: 1 drops Documented By: Admin: 11/16/21 09:12 Dose: 1 drops Documented By: Admin: 11/15/21 21:06 Dose: 1 drops Documented By: MISTY Clopidogrel Bisulfate (Clopidogrel 75 Mg Tablet) 75 mg PO DAILY [facility] Last Admin: 11/17/21 10:03 Dose: 75 mg Documented By: Admin: 11/16/21 09:13 Dose: 75 mg Documented By: WILMER Dexamethasone (Dexamethasone 10 Mg/Ml Vial) 6 mg IV DAILY [facility] Stop: 11/25/21 08:59 Last Admin: 11/17/21 10:04 Dose: 6 mg Documented By: Admin: 11/16/21 09:12 Dose: 6 mg Documented By: WILMER Dextrose (Dextrose 50 % In Water 25 Gm/50 Ml Syringe) 25 gm IV PRN PRN PRN Reason: Hypoglycemia Enoxaparin Sodium (Enoxaparin 40 Mg/0.4 Ml Syringe) 40 mg SUBCUT DAILY [facility] Last Admin: 11/17/21 10:02 Dose: 40 mg Documented By: Admin: 11/16/21 09:13 Dose: 40 mg Documented By: WILMER Guaifenesin (Guaifenesin Er 600 Mg Tab) 600 mg PO BID [facility] Last Admin: 11/17/21 20:06 Dose: 600 mg Documented By: Admin: 11/17/21 10:02 Dose: 600 mg Documented By: Admin: 11/16/21 21:32 Dose: 600 mg Documented By: Admin: 11/16/21 17:02 Dose: 600 mg Documented By: WILMER Remdesivir 100 mg/ Sodium (Chloride) 250 mls @ 250 mls/hr IV DAILY [facility] Stop: 11/19/21 09:59 Last Admin: 11/17/21 10:11 Dose: 100 mls/hr Documented By: Infusion: 11/16/21 21:14 Dose: 0 mls/hr Documented By: Admin: 11/16/21 09:13 Dose: 250 mls/hr Documented By: WILMER Insulin Glargine (Insulin Glargine 100 Unit/Ml 3ml Pen) 25 unit SUBCUT 1700 [facility] Last Admin: 11/17/21 17:44 Dose: 25 unit Documented By: MELISSA Co-signed By: NANCY Admin: 11/16/21 17:02 Dose: 25 unit Documented By: WILMER Co-signed By: EMY Insulin Human Lispro (Insulin Lispro 100 Unit/Ml 3ml Vial) 0 unit SUBCUT ACHS [facility]; Protocol Last Admin: 11/17/21 20:28 Dose: Not Given Documented By: Admin: 11/17/21 17:44 Dose: 4 unit Documented By: MELISSA Co-signed By: NANCY Admin: 11/17/21 14:14 Dose: Not Given Documented By: Admin: 11/17/21 08:11 Dose: Not Given Documented By: Admin: 11/16/21 21:28 Dose: Not Given Documented By: Admin: 11/16/21 17:00 Dose: 3 unit Documented By: WILMER Co-signed By: EMY Admin: 11/16/21 12:52 Dose: 2 unit Documented By: WILMER Co-signed By: EMY Admin: 11/16/21 09:15 Dose: Not Given Documented By: Admin: 11/15/21 20:56 Dose: 3 unit Documented By: MISTY Co-signed By: CORY Latanoprost (Latanoprost 0.005% Ophth 2.5 Ml) 1 drops EYE-RIGHT BEDTIME [facility] Last Admin: 11/17/21 20:28 Dose: 1 drops Documented By: Admin: 11/16/21 21:29 Dose: 1 drops Documented By: Admin: 11/15/21 21:05 Dose: 1 drops Documented By: MISTY Lisinopril (Lisinopril 20 Mg Tablet) 20 mg PO DAILY [facility] Last Admin: 11/17/21 10:39 Dose: 20 mg Documented By: Admin: 11/16/21 14:52 Dose: Not Given Documented By: WILMER Melatonin (Melatonin 3 Mg Tablet) 6 mg PO BEDTIME PRN PRN Reason: Insomnia Polyethylene Glycol (Polyethylene Glycol 3350 17 Gm Powd.Pack) 17 gm PO DAILY PRN PRN Reason: Constipation Sennosides (Sennosides 8.6 Mg Tablet) 8.6 mg PO BID PRN PRN Reason: Constipation Timolol Maleate (Timolol 0.25% Ophth) 1 drops EYE-RIGHT BID [facility] Last Admin: 11/17/21 20:28 Dose: 1 drop Documented By: Admin: 11/17/21 10:40 Dose: 1 drop Documented By: Admin: 11/16/21 21:29 Dose: 1 1000units Documented By: Admin: 11/16/21 09:16 Dose: 1 1000units Documented By: Admin: 11/15/21 20:59 Dose: 1 1000units Documented By: MISTY Discontinued Medications Budesonide (Budesonide 0.5 Mg/2 Ml Neb) 0.5 mg INH NOW ONE Stop: 11/15/21 12:50 Last Admin: 11/15/21 13:01 Dose: 0.5 mg Documented By: JOSE Dexamethasone (Dexamethasone 10 Mg/Ml Vial) 6 mg IV NOW ONE Stop: 11/15/21 13:27 Last Admin: 11/15/21 13:46 Dose: 6 mg Documented By: ELISA Furosemide (Furosemide 40 Mg/4 Ml Vial) 40 mg IV NOW ONE Stop: 11/15/21 15:37 Last Admin: 11/15/21 18:56 Dose: 40 mg Documented By: BRITTNEY Remdesivir 200 mg/ Sodium (Chloride) 250 mls @ 250 mls/hr IV NOW ONE Stop: 11/15/21 16:19 Last Admin: 11/15/21 15:44 Dose: 250 mls/hr Documented By: NR Consultations Consultation #1: Patient given a trial of room air and she dropped to about 85% with increased work of breathing, we attempted an ambulation trial and she rather quickly became intolerant dropped to 80%. Vital Signs Vital signs: Vital Signs - 8 hr 11/15/21 11:45 11/15/21 11:54 11/15/21 12:11 Temperature 98.9 F Pulse Rate 83 62 63 Respiratory Rate 29 H 28 H 31 H Blood Pressure 203/82 H Pulse Oximetry 87 L 96 97 Oxygen Delivery Method Room Air Nasal Cannula Oxygen Flow Rate 2 11/15/21 12:30 11/15/21 13:00 11/15/21 13:14 Temperature Pulse Rate 61 62 Respiratory Rate 17 26 H Blood Pressure 153/76 H Pulse Oximetry 98 98 Oxygen Delivery Method Nasal Cannula Oxygen Flow Rate 2 11/15/21 13:14 11/15/21 13:30 11/15/21 14:00 Temperature Pulse Rate 59 L 58 L 58 L Respiratory Rate 25 H 24 21 Blood Pressure Pulse Oximetry 97 97 90 L Oxygen Delivery Method Room Air Oxygen Flow Rate MDM - SOB/Dyspnea Lab Data Result diagrams: 11/17/21 06:07 11/17/21 06:07 Labs: Lab Results 11/15/21 11/15/21 11/15/21 Range/Units 11:49 12:05 12:05 WBC 8.4 (4.5-11.0) X10^3/uL RBC 4.00 (4.0-5.2) X10^6/uL Hgb 12.8 (12.0-16.0) g/dL Hct 37.7 (36-46) % MCV 94.3 (80-100) fL MCH 31.9 (26-34) PG MCHC 33.9 (30-36) % RDW 13.2 (11.6-14.8) % Plt Count 278 (150-400) X10^3/uL Neut % (Auto) 68.0 (50-75) % Lymph % (Auto) 22.8 L (25-40) % Bonner % (Auto) 6.5 (3-14) % Eos % (Auto) 1.5 L (2-4) % Baso % (Auto) 1.2 (0-2) % Neut # (Auto) 5700 (5208-5176) /uL Lymph # (Auto) 1900 (7214-5906) /uL Bonner # (Auto) 500 (0-900) /uL Eos # (Auto) 100 (0-450) /uL Baso # (Auto) 100 (0-100) /uL PT 10.9 (10.1-12.7) SECONDS INR 1.0 (0.9-1.3) D-Dimer (<500) ng/ml Sodium (137-145) mmol/L Potassium (3.4-5.1) mmol/L Chloride (98-107) mmol/L Carbon Dioxide (22-32) mmol/L BUN (7-17) mg/dL Creatinine (0.52-1.04) mg/dL Estimated GFR (>60) mL/min BUN/Creatinine Ratio (6-22) Glucose (80-110) mg/dL Hemoglobin A1c (4.0-6.0) % Lactate (0.7-2.1) mmol/L Calcium (8.4-10.2) mg/dL Total Bilirubin (0.2-1.3) mg/dL AST (14-36) IU/L ALT (<35) IU/L Alkaline Phosphatase (38-126) U/L Troponin I (0.01-0.034) ng/mL NT-Pro-B Natriuret Pep (<450) pg/mL Total Protein (6.3-8.2) g/dL Albumin (3.5-5.0) g/dL Globulin (1.7-4.1) g/dL Albumin/Globulin Ratio (1.0-2.8) Procalcitonin (<0.5) ng/mL SARS-CoV-2 (PCR) Positive H (Negative) 11/15/21 11/15/21 11/15/21 Range/Units 12:05 12:05 12:05 WBC (4.5-11.0) X10^3/uL RBC (4.0-5.2) X10^6/uL Hgb (12.0-16.0) g/dL Hct (36-46) % MCV (80-100) fL MCH (26-34) PG MCHC (30-36) % RDW (11.6-14.8) % Plt Count (150-400) X10^3/uL Neut % (Auto) (50-75) % Lymph % (Auto) (25-40) % Bonner % (Auto) (3-14) % Eos % (Auto) (2-4) % Baso % (Auto) (0-2) % Neut # (Auto) (1040-7819) /uL Lymph # (Auto) (0818-9508) /uL Bonner # (Auto) (0-900) /uL Eos # (Auto) (0-450) /uL Baso # (Auto) (0-100) /uL PT (10.1-12.7) SECONDS INR (0.9-1.3) D-Dimer 413 (<500) ng/ml Sodium 134 L (137-145) mmol/L Potassium 4.9 (3.4-5.1) mmol/L Chloride 96 L (98-107) mmol/L Carbon Dioxide 31 (22-32) mmol/L BUN 9 (7-17) mg/dL Creatinine 0.54 (0.52-1.04) mg/dL Estimated GFR > 60 (>60) mL/min BUN/Creatinine Ratio 16.7 (6-22) Glucose 166 H (80-110) mg/dL Hemoglobin A1c (4.0-6.0) % Lactate 1.3 (0.7-2.1) mmol/L Calcium 9.4 (8.4-10.2) mg/dL Total Bilirubin 0.4 (0.2-1.3) mg/dL AST 28 (14-36) IU/L ALT 28 (<35) IU/L Alkaline Phosphatase 56 (38-126) U/L Troponin I (0.01-0.034) ng/mL NT-Pro-B Natriuret Pep 2020 H (<450) pg/mL Total Protein 7.0 (6.3-8.2) g/dL Albumin 4.0 (3.5-5.0) g/dL Globulin 3.0 (1.7-4.1) g/dL Albumin/Globulin Ratio 1.3 (1.0-2.8) Procalcitonin (<0.5) ng/mL SARS-CoV-2 (PCR) (Negative) 11/15/21 11/15/21 11/15/21 Range/Units 12:05 12:05 12:05 WBC (4.5-11.0) X10^3/uL RBC (4.0-5.2) X10^6/uL Hgb (12.0-16.0) g/dL Hct (36-46) % MCV (80-100) fL MCH (26-34) PG MCHC (30-36) % RDW (11.6-14.8) % Plt Count (150-400) X10^3/uL Neut % (Auto) (50-75) % Lymph % (Auto) (25-40) % Bonner % (Auto) (3-14) % Eos % (Auto) (2-4) % Baso % (Auto) (0-2) % Neut # (Auto) (3376-3526) /uL Lymph # (Auto) (0073-7079) /uL Bonner # (Auto) (0-900) /uL Eos # (Auto) (0-450) /uL Baso # (Auto) (0-100) /uL PT (10.1-12.7) SECONDS INR (0.9-1.3) D-Dimer (<500) ng/ml Sodium (137-145) mmol/L Potassium (3.4-5.1) mmol/L Chloride (98-107) mmol/L Carbon Dioxide (22-32) mmol/L BUN (7-17) mg/dL Creatinine (0.52-1.04) mg/dL Estimated GFR (>60) mL/min BUN/Creatinine Ratio (6-22) Glucose (80-110) mg/dL Hemoglobin A1c 7.5 H (4.0-6.0) % Lactate (0.7-2.1) mmol/L Calcium (8.4-10.2) mg/dL Total Bilirubin (0.2-1.3) mg/dL AST (14-36) IU/L ALT (<35) IU/L Alkaline Phosphatase (38-126) U/L Troponin I < 0.012 (0.01-0.034) ng/mL NT-Pro-B Natriuret Pep (<450) pg/mL Total Protein (6.3-8.2) g/dL Albumin (3.5-5.0) g/dL Globulin (1.7-4.1) g/dL Albumin/Globulin Ratio (1.0-2.8) Procalcitonin 0.03 (<0.5) ng/mL SARS-CoV-2 (PCR) (Negative) Imaging Data Chest x-ray: Radiologist's Impression: [address] [address] XRay Report Signed Patient: Sarahi Gentile MR#: [id number] : 1945 Acct:[id number] Age/Sex: 76 / F Date of Service: 11/15/21 Loc: ED Accession Number: [id number] ?? Procedure: XR chest 2V Ordering Provider: Braxton Ybarra D.O. PROCEDURE:? XR CHEST 2V ? INDICATIONS:? shortness of breath ? TECHNIQUE:? 2 views of the chest were acquired.? ? COMPARISON:? [facility], CR, XR CHEST 1V, 10/12/2018, 0:52. ? FINDINGS:? ? Surgical changes and devices:? None.? ? Lungs and pleura:? There is mild blunting of the costophrenic angles. ? Mediastinum:? Mediastinal contours are normal.? Heart size is normal.? ? Bones and chest wall:? No suspicious bony abnormalities.? Soft tissues appear unremarkable.? ? IMPRESSION:? Mild costophrenic angle blunting suggestive of trace effusions. ? ? Dictated by: Mikayla Hanson M.D. on 11/15/2021 at 12:40 ? ? Approved by: Mikayla Hanson M.D. on 11/15/2021 at 12:41 ? Discharge Plan Departure Patient Disposition: Admitted As Inpatient Clinical Impression: COVID Admit Date/Time: 11/15/21 15:30 Admit Provider: Chema Pete
[2021-11-15] MEDS: BUDESONIDE 0.5 MG/2 ML NEB INH (13:01)
[2021-11-15] MEDS: DEXAMETHASONE 10 MG/ML VIAL 6 MG IV (13:46)
--- NOTE | 2021-11-15 14:13 | PC.NURSE ---
trial on room air started at 1330. while sitting up in bed, pt lowest O2 reading was 90%. pt ambulated around room and lowest O2 reading was 87%. pt requested to ambulate to bathroom. portable oximeter placed on pt and lowest reading was 80%, highest reading was 86%. reported results to charge nurse and provider
[2021-11-15 14:21] LABS: D Dimer 413 ng/ml (<500)
[2021-11-15] MEDS: REMDESIVIR 200 MG in SODIUM CHLORIDE 0.9% 210 ML 250 MG IV (15:44)
[2021-11-15 16:49] LABS: Troponin I < 0.012 ng/mL (0.01-0.034)
[2021-11-15 16:55] LABS: Procalcitonin 0.03 ng/mL (<0.5)
[2021-11-15] MEDS: FUROSEMIDE 40 MG/4 ML VIAL IV (18:56)
[2021-11-15 20:39] LABS: Hemoglobin A1C% w Est Avg Glu 7.5 % (4.0-6.0)
[2021-11-15] MEDS: INSULIN LISPRO 100 UNIT/ML 3ML VIAL SUBCUT (20:56)
[2021-11-15] MEDS: ATORVASTATIN 20 MG TABLET 80 MG PO (20:58)
[2021-11-15] MEDS: TIMOLOL 0.25% OPHTH 1 DROPS EYE-RIGHT (20:59)
[2021-11-15] MEDS: LATANOPROST 0.005% OPHTH 2.5 ML 1 DROPS EYE-RIGHT (21:05)
[2021-11-15] MEDS: BRIMONIDINE 0.2% OPHTH 5 ML 1 DROPS EYE-RIGHT (21:06)
--- NOTE | 2021-11-15 22:51 | PM.HP.1 ---
History of Present Illness History of Present Illness Date Patient Seen: 11/15/21 Time Patient Seen: 23:00 Chief complaint: Cough, diarrhea x 10 days Narrative: Ms. Gentile is a 76W with PMH DM, HTN who comes to the hospital for cough and shortness of breath. She has been feeling symptoms for the last week. Cough is not productive. She has subjective fever and nausea and diarrhea. She has received COVID vaccination and one booster. In the ED workup was done, vitals notable for being afebrile, bp 200s/80s, o2 sat 80s on room air. She was placed on oxygen. Labs notable for WBC 8.4, hgb 12.8, plts 278. Creatinine 0.54. BNP 2020. COVID positive. Chest xray showed mild costophrenic blunting. She was ordered for steroids, remdesivir, and lasix and admitted for further treatment. Family history: asked and patient denied any significant history Social history: former smoker Patient History Family & Social History Social History: Prior Living Arrangements House Safety & Behavioral: Feels Safe in Current Yes Environment Been Physically Hurt or No Threatened By a Person Tobacco & Substance use: Smoking Status Former smoker Smoking packs per day 1.5 alcohol intake frequency holiday/special occasion Substance Use Type does not use Meds Home Medications and Allergies Home Medications Medication Instructions Recorded Confirmed Type atenolol 50 mg tablet 50 mg DAILY 11/15/21 11/15/21 History atorvastatin 80 mg tablet 80 mg PO DAILY 11/15/21 11/15/21 History brimonidine 0.15 % eye drops 1 drp EYE-RIGHT BID 11/15/21 11/15/21 History clopidogrel 75 mg tablet (Plavix) 75 mg PO DAILY 11/15/21 11/15/21 History conjugated estrogens 0.625 mg 0.625 mg PO DAILY 11/15/21 11/15/21 History tablet (Premarin) insulin glargine 100 unit/mL 25 unit SUBCUT DAILY 11/15/21 11/15/21 History subcutaneous cartridge latanoprost 0.005 % eye drops 1 drp EYE-RIGHT BEDTIME 11/15/21 11/15/21 History lisinopril 20 mg tablet 20 mg PO DAILY 11/15/21 11/15/21 History metformin 500 mg tablet 500 mg PO BID 11/15/21 11/15/21 History timolol 0.25 % eye drops 1 drp EYE-RIGHT BID 11/15/21 11/15/21 History Allergies Allergy/AdvReac Type Severity Reaction Status Date / Time codeine [CODEINE] Allergy Unknown Verified 11/15/21 11:52 shellfish derived Allergy Unknown Verified 11/15/21 11:52 [SHELLFISH DERIVED] Review of Systems Review of Systems Narrative: 14 systems reviewed and negative aside from what is noted in HPI Exam Vital Signs (past 8 hours): - 11/15/21 15:00 11/15/21 15:30 11/15/21 16:00 Temperature Pulse Rate 59 L 61 57 L Respiratory Rate Blood Pressure Pulse Oximetry 99 96 97 Oxygen Flow Rate 11/15/21 17:17 11/15/21 20:00 Temperature 96.3 F L 98.6 F Pulse Rate 66 65 Respiratory Rate 17 18 Blood Pressure 161/56 H 152/48 H Pulse Oximetry 96 95 Oxygen Flow Rate 0 2 Oxygen Delivery Method Room Air Oxygen Flow Rate 2 Narrative Exam Narrative: GEN: no acute distress HEENT: moist mucous membranes, PERRL NECK: trachea midline, no JVD PULM: coarse breath sounds bilaterally CV: regular rate and rhythm, no murmurs ABD: soft, nontender, nondistended, no organomegaly EXT: warm and well perfused with no edema NEURO: awake, alert oriented no focal deficits Objective Labs Result Diagrams: 11/15/21 12:05 11/15/21 12:05 Labs: Laboratory Results - last 24 hr 11/15/21 11/15/21 11/15/21 11:49 12:05 12:05 WBC 8.4 RBC 4.00 Hgb 12.8 Hct 37.7 MCV 94.3 MCH 31.9 MCHC 33.9 RDW 13.2 Plt Count 278 Neut % (Auto) 68.0 Lymph % (Auto) 22.8 L [place] % (Auto) 6.5 Eos % (Auto) 1.5 L Baso % (Auto) 1.2 Neut # (Auto) 5700 Lymph # (Auto) 1900 [place] # (Auto) 500 Eos # (Auto) 100 Baso # (Auto) 100 PT 10.9 INR 1.0 D-Dimer Sodium Potassium Chloride Carbon Dioxide BUN Creatinine Estimated GFR BUN/Creatinine Ratio Glucose Hemoglobin A1c Lactate Calcium Total Bilirubin AST ALT Alkaline Phosphatase Troponin I NT-Pro-B Natriuret Pep Total Protein Albumin Globulin Albumin/Globulin Ratio Procalcitonin SARS-CoV-2 (PCR) Positive H 11/15/21 11/15/21 11/15/21 12:05 12:05 12:05 WBC RBC Hgb Hct MCV MCH MCHC RDW Plt Count Neut % (Auto) Lymph % (Auto) [place] % (Auto) Eos % (Auto) Baso % (Auto) Neut # (Auto) Lymph # (Auto) [place] # (Auto) Eos # (Auto) Baso # (Auto) PT INR D-Dimer 413 Sodium 134 L Potassium 4.9 Chloride 96 L Carbon Dioxide 31 BUN 9 Creatinine 0.54 Estimated GFR > 60 BUN/Creatinine Ratio 16.7 Glucose 166 H Hemoglobin A1c Lactate 1.3 Calcium 9.4 Total Bilirubin 0.4 AST 28 ALT 28 Alkaline Phosphatase 56 Troponin I NT-Pro-B Natriuret Pep 2020 H Total Protein 7.0 Albumin 4.0 Globulin 3.0 Albumin/Globulin Ratio 1.3 Procalcitonin SARS-CoV-2 (PCR) 11/15/21 11/15/21 11/15/21 12:05 12:05 12:05 WBC RBC Hgb Hct MCV MCH MCHC RDW Plt Count Neut % (Auto) Lymph % (Auto) [place] % (Auto) Eos % (Auto) Baso % (Auto) Neut # (Auto) Lymph # (Auto) [place] # (Auto) Eos # (Auto) Baso # (Auto) PT INR D-Dimer Sodium Potassium Chloride Carbon Dioxide BUN Creatinine Estimated GFR BUN/Creatinine Ratio Glucose Hemoglobin A1c 7.5 H Lactate Calcium Total Bilirubin AST ALT Alkaline Phosphatase Troponin I < 0.012 NT-Pro-B Natriuret Pep Total Protein Albumin Globulin Albumin/Globulin Ratio Procalcitonin 0.03 SARS-CoV-2 (PCR) Assessment & Plan Assessment & Plan narrative: Ms. Gentile is a 76W DM, HTN admitted for respiratory failure from COVID pneumonia. 1. Acute hypoxemic respiratory failure from COVID pneumonia -patient sats in 80s initially, improved on oxygen -COVID positive -chest xray showed elevated BNP and bilateral pleural effusions, did get lasix, suspect secondary to infection but also consider CHF if not improving -continue remdesivir and steroids -wean oxygen as able -patient has possible history of COPD, has been documented on other notes 2. Type 2 Diabetes -check glucose achs, insulin sliding scale ordered 3. Hypertension -continue home medications, lisinopril, atenolol CODE: Full Proxy: Jose Gentile, I have utilized all available resources to reconcile the patient's home medications Time Spent With Patient Critical Care time: I spent a total of [] minutes of critical care time on this patient's care today; this time is exclusive of procedural time.
[2021-11-16] VITALS: BP 110/65; PULSE 78; RESP 17; TEMP 36.4; O2SAT 96
[2021-11-16 06:00] VITALS: BP 124/57; PULSE 77; RESP 17; TEMP 37.2; O2SAT 95
[2021-11-16 07:38] LABS: Add Manual Diff / Slide Review NO; Basophils Absolute Auto 0 /uL (0-100); Basophils Percent Auto 0.3 % (0-2); Eosinophils Absolute Auto 0 /uL (0-450); Eosinophils Percent Auto 0.2 % (2-4); Hematocrit 36.2 % (36-46); Hemoglobin 12.6 g/dL (12.0-16.0); Lymphocytes Absolute Auto 1800 /uL (1100-4500); Mean Corpuscular HGB Conc 34.7 % (30-36); Mean Corpuscular Hemoglobin 32.3 PG (26-34); Mean Corpuscular Volume 93.2 fL (80-100); Monocytes Absolute Auto 700 /uL (0-900); Monocytes Percent Auto 10.5 % (3-14); Neutrophils Absolute Auto 4400 /uL (1500-7000); Platelet Count 275 X10^3/uL (150-400); Red Blood Cell Count 3.89 X10^6/uL (4.0-5.2); Red Cell Distribution Width 13.1 % (11.6-14.8)
[2021-11-16 07:46] LABS: BUN Creatinine Ratio 23.5 (6-22); Blood Urea Nitrogen 16 mg/dL (7-17); Calcium 8.9 mg/dL (8.4-10.2); Carbon Dioxide 33 mmol/L (22-32); Chloride 93 mmol/L (98-107); Estimated Glomerular Filt Rate > 60 mL/min (>60); Glucose 143 mg/dL (80-110); HEMOLYSIS < 15 (0-50); Potassium 4.4 mmol/L (3.4-5.1); Sodium 132 mmol/L (137-145)
--- NOTE | 2021-11-16 07:56 | PM.PN.1 ---
Subjective Subjective Date Patient Seen: 11/16/21 Time Patient Seen: 14:00 Interval history: Patient still having wet cough and requiring 2L NC. Asking if remdesivir will make her more prone to being reinfected with covid. I assured her no. Exam Vital Signs (past 8 hours): - 11/16/21 00:00 11/16/21 06:00 Temperature 97.6 F 98.9 F Pulse Rate 78 77 Respiratory Rate 17 17 Blood Pressure 110/65 124/57 L Pulse Oximetry 96 95 Oxygen Flow Rate 2 Oxygen Delivery Method Room Air Oxygen Flow Rate 2 Narrative Exam Narrative: GEN: no acute distress, fatigued HEENT: moist mucous membranes, PERRL NECK: trachea midline, no JVD PULM: coarse breath sounds bilaterally CV: regular rate and rhythm, no murmurs ABD: soft, nontender, nondistended, no organomegaly EXT: warm and well perfused with no edema NEURO: awake, alert oriented no focal deficits Objective Labs Result Diagrams: 11/16/21 06:21 11/16/21 06:21 Labs: Laboratory Results - last 24 hr 11/15/21 11/15/21 11/15/21 11:49 12:05 12:05 WBC 8.4 RBC 4.00 Hgb 12.8 Hct 37.7 MCV 94.3 MCH 31.9 MCHC 33.9 RDW 13.2 Plt Count 278 Neut % (Auto) 68.0 Lymph % (Auto) 22.8 L [place] % (Auto) 6.5 Eos % (Auto) 1.5 L Baso % (Auto) 1.2 Neut # (Auto) 5700 Lymph # (Auto) 1900 [place] # (Auto) 500 Eos # (Auto) 100 Baso # (Auto) 100 PT 10.9 INR 1.0 D-Dimer Sodium Potassium Chloride Carbon Dioxide BUN Creatinine Estimated GFR BUN/Creatinine Ratio Glucose Hemoglobin A1c Lactate Calcium Total Bilirubin AST ALT Alkaline Phosphatase Troponin I NT-Pro-B Natriuret Pep Total Protein Albumin Globulin Albumin/Globulin Ratio Procalcitonin SARS-CoV-2 (PCR) Positive H 11/15/21 11/15/21 11/15/21 12:05 12:05 12:05 WBC RBC Hgb Hct MCV MCH MCHC RDW Plt Count Neut % (Auto) Lymph % (Auto) [place] % (Auto) Eos % (Auto) Baso % (Auto) Neut # (Auto) Lymph # (Auto) [place] # (Auto) Eos # (Auto) Baso # (Auto) PT INR D-Dimer 413 Sodium 134 L Potassium 4.9 Chloride 96 L Carbon Dioxide 31 BUN 9 Creatinine 0.54 Estimated GFR > 60 BUN/Creatinine Ratio 16.7 Glucose 166 H Hemoglobin A1c Lactate 1.3 Calcium 9.4 Total Bilirubin 0.4 AST 28 ALT 28 Alkaline Phosphatase 56 Troponin I NT-Pro-B Natriuret Pep 2020 H Total Protein 7.0 Albumin 4.0 Globulin 3.0 Albumin/Globulin Ratio 1.3 Procalcitonin SARS-CoV-2 (PCR) 11/15/21 11/15/21 11/15/21 12:05 12:05 12:05 WBC RBC Hgb Hct MCV MCH MCHC RDW Plt Count Neut % (Auto) Lymph % (Auto) [place] % (Auto) Eos % (Auto) Baso % (Auto) Neut # (Auto) Lymph # (Auto) [place] # (Auto) Eos # (Auto) Baso # (Auto) PT INR D-Dimer Sodium Potassium Chloride Carbon Dioxide BUN Creatinine Estimated GFR BUN/Creatinine Ratio Glucose Hemoglobin A1c 7.5 H Lactate Calcium Total Bilirubin AST ALT Alkaline Phosphatase Troponin I < 0.012 NT-Pro-B Natriuret Pep Total Protein Albumin Globulin Albumin/Globulin Ratio Procalcitonin 0.03 SARS-CoV-2 (PCR) 11/16/21 11/16/21 06:21 06:21 WBC 7.0 RBC 3.89 L Hgb 12.6 Hct 36.2 MCV 93.2 MCH 32.3 MCHC 34.7 RDW 13.1 Plt Count 275 Neut % (Auto) 63.0 Lymph % (Auto) 26.0 [place] % (Auto) 10.5 Eos % (Auto) 0.2 L Baso % (Auto) 0.3 Neut # (Auto) 4400 Lymph # (Auto) 1800 [place] # (Auto) 700 Eos # (Auto) 0 Baso # (Auto) 0 PT INR D-Dimer Sodium 132 L Potassium 4.4 Chloride 93 L Carbon Dioxide 33 H BUN 16 Creatinine 0.68 Estimated GFR > 60 BUN/Creatinine Ratio 23.5 H Glucose 143 H Hemoglobin A1c Lactate Calcium 8.9 Total Bilirubin AST ALT Alkaline Phosphatase Troponin I NT-Pro-B Natriuret Pep Total Protein Albumin Globulin Albumin/Globulin Ratio Procalcitonin SARS-CoV-2 (PCR) PFSH Social History household members: spouse Smoking Status: Former smoker Assessment & Plan Assessment & Plan narrative: Ms. Gentile is a 76W DM, HTN admitted for respiratory failure from COVID pneumonia. 1. Acute hypoxemic respiratory failure from COVID pneumonia -patient sats in 80s initially, improved on oxygen and currently 2L NC -COVID positive per PCR on 11/15, has had symptoms for 10 days. Vaccinated x3. -chest xray showed elevated BNP and bilateral pleural effusions, did get lasix, suspect secondary to infection but also consider CHF if not improving -continue remdesivir and steroids -wean oxygen as able -patient has possible history of COPD, has been documented on other notes -albuterol, mucinex and tessalon perles PRN 2. Type 2 Diabetes -check glucose achs, insulin sliding scale ordered 3. Hypertension -continue home medications, lisinopril, atenolol CODE: Full Proxy: Jose Gentile, I have utilized all available resources to reconcile the patient's home medications Dispo: Home in 1-2 days possibly with home O2. Time Spent With Patient Critical Care time: I spent a total of [] minutes of critical care time on this patient's care today; this time is exclusive of procedural time.
[2021-11-16] MEDS: atenoloL 50 MG TABLET PO (09:12)
[2021-11-16] MEDS: DEXAMETHASONE 10 MG/ML VIAL 6 MG IV (09:12)
[2021-11-16] MEDS: BRIMONIDINE 0.2% OPHTH 5 ML 1 DROPS EYE-RIGHT ×2 (09:12→21:29)
[2021-11-16] MEDS: CLOPIDOGREL 75 MG TABLET PO (09:13)
[2021-11-16] MEDS: REMDESIVIR 100 MG in SODIUM CHLORIDE 0.9% 230 ML 250 MG IV (09:13)
[2021-11-16] MEDS: ENOXAPARIN 40 MG/0.4 ML SYRINGE SUBCUT (09:13)
[2021-11-16 09:15] VITALS: BP 133/42; PULSE 63; RESP 16; TEMP 36.4; O2SAT 98
[2021-11-16] MEDS: TIMOLOL 0.25% OPHTH 1 DROPS EYE-RIGHT ×2 (09:16→21:29)
--- NOTE | 2021-11-16 10:51 | PC.NURSE ---
Addendum entered by Patti Gutierrez R.N. 11/16/21 14:53: Patient blood sugars have been 118 and 228. She was given 2u before lunch time of fast acting insulin and has tolerated well. was visiting and just recently left. She denies any pain or discomfort. Original Note: Assess- Patient is alert and oriented x4, she is coughing but nonproductive. Up to bathroom with sba/independent. She is having some loose stool x 1. Remdesvir is infusing and patient is tolerating well. She has wheezes to r.upper lobe. She is on 2l of oxygen and sats are 98%. Patient has a hx of smoking in the past. She is resting comfortably.
[2021-11-16] MEDS: INSULIN LISPRO 100 UNIT/ML 3ML VIAL SUBCUT ×2 (12:52→17:00)
[2021-11-16 13:06] VITALS: BP 131/40; PULSE 57; RESP 18; TEMP 36.4; O2SAT 98
--- NOTE | 2021-11-16 14:24 | CM.DANOTE ---
Patient is a 76 yo female who was admitted on 11/15/21 for SOB. Pt has [employer] for insurance and her PCP is Dr. Filipe Soni. EMR was reviewed. Per MD, pt with hx of COPD and diabetes and admitted for hypoxic respiratory failure from COVID pneumonia. Per RT, pt still with wheezes and crackles and requiring some oxygen and she doesn't use home oxygen at baseline. Per RN, pt independent in room but fatigues. SW spoke to pt briefly via room phone due to COVID precautions and pt audible wheezes and she confirms she and spouse live in [place] and she is independent at baseline with ADL's and does not use DME. Spouse is her DPOA and denies any hx of SNF. Pt is hopeful to feel better soon and discharge to home in the next day or two and thinks her spouse likely would transport and is available for assist. No PT/OT needs at this time as pt has been ambulating independently in room. Plan: SW to follow closely to confirm safe plan of home via spouse POV when medically stable and any further identified needs. SW to r/o HH although pt independent in room at this time. 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 Yes Advance Directives on File Yes History Provided By Patient,Medical Record Has Patient been admitted in last 30 No days? Prior Living Arrangements House Household Members spouse Type of transporation used prior to Drives own vehicle admit Independent with ADL's Yes Is patient alert and oriented? Yes Caregiver for Another No Comment r/o HH Barriers to Discharge No Discharge Plan Home Transportation Arrangement Likely spouse to transport at d/c Referrals Initiated None needed Additional Comment r/o HH Review Status In Process Please Provide Date Initial DC 11/16/21 Assessment Was Performed
[2021-11-16] MEDS: INSULIN GLARGINE 100 UNIT/ML 3ML PEN 25 UNIT SUBCUT (17:02)
[2021-11-16] MEDS: BENZONATATE 100 MG CAPSULE PO ×2 (17:02→21:32)
[2021-11-16] MEDS: guaiFENesin ER 600 MG TAB PO ×2 (17:02→21:32)
[2021-11-16 17:06] VITALS: BP 140/45; PULSE 69; RESP 16; TEMP 36.5; O2SAT 97
[2021-11-16] MEDS: LATANOPROST 0.005% OPHTH 2.5 ML 1 DROPS EYE-RIGHT (21:29)
[2021-11-16] MEDS: ATORVASTATIN 20 MG TABLET 80 MG PO (21:32)
[2021-11-17 01:00] VITALS: BP 152/49; PULSE 66; RESP 15; TEMP 36.2; O2SAT 99
[2021-11-17 06:25] LABS: Add Manual Diff / Slide Review NO; Basophils Absolute Auto 0 /uL (0-100); Basophils Percent Auto 0.6 % (0-2); Eosinophils Absolute Auto 100 /uL (0-450); Eosinophils Percent Auto 0.8 % (2-4); Hematocrit 34.5 % (36-46); Hemoglobin 12.1 g/dL (12.0-16.0); Lymphocytes Absolute Auto 2700 /uL (1100-4500); Mean Corpuscular HGB Conc 35.2 % (30-36); Mean Corpuscular Hemoglobin 32.4 PG (26-34); Mean Corpuscular Volume 92.1 fL (80-100); Monocytes Absolute Auto 900 /uL (0-900); Neutrophils Absolute Auto 5200 /uL (1500-7000); Neutrophils Percent Auto 58.6 % (50-75); Platelet Count 290 X10^3/uL (150-400); Red Blood Cell Count 3.75 X10^6/uL (4.0-5.2); White Blood Cell Count 8.9 X10^3/uL (4.5-11.0)
[2021-11-17] MEDS: BENZONATATE 100 MG CAPSULE PO (06:30)
[2021-11-17 06:36] LABS: BUN Creatinine Ratio 32.8 (6-22); Blood Urea Nitrogen 20 mg/dL (7-17); Calcium 8.1 mg/dL (8.4-10.2); Carbon Dioxide 32 mmol/L (22-32); Chloride 94 mmol/L (98-107); Estimated Glomerular Filt Rate > 60 mL/min (>60); Glucose 145 mg/dL (80-110); HEMOLYSIS < 15 (0-50); Potassium 4.2 mmol/L (3.4-5.1); Sodium 132 mmol/L (137-145)
--- NOTE | 2021-11-17 09:37 | P.PN_ITS ---
Subjective Subjective Date Patient Seen: 11/17/21 Time Patient Seen: 14:07 Interval history: Patient still requiring 2L O2. Cough is still present. No difficulty breathing. Thinks she will be better enough to go home tomorrow. Exam Vital Signs (past 8 hours): Oxygen Delivery Method Nasal Cannula Oxygen Flow Rate 0 Narrative Exam Narrative: GEN: no acute distress, fatigued HEENT: moist mucous membranes, PERRL NECK: trachea midline, no JVD PULM: coarse breath sounds bilaterally CV: regular rate and rhythm, no murmurs ABD: soft, nontender, nondistended, no organomegaly EXT: warm and well perfused with no edema NEURO: awake, alert oriented no focal deficits Objective Labs Result Diagrams: 11/17/21 06:07 11/17/21 06:07 Labs: Laboratory Results - last 24 hr 11/17/21 11/17/21 06:07 06:07 WBC 8.9 RBC 3.75 L Hgb 12.1 Hct 34.5 L MCV 92.1 MCH 32.4 MCHC 35.2 RDW 13.0 Plt Count 290 Neut % (Auto) 58.6 Lymph % (Auto) 30.0 [place] % (Auto) 10.0 Eos % (Auto) 0.8 L Baso % (Auto) 0.6 Neut # (Auto) 5200 Lymph # (Auto) 2700 [place] # (Auto) 900 Eos # (Auto) 100 Baso # (Auto) 0 Sodium 132 L Potassium 4.2 Chloride 94 L Carbon Dioxide 32 BUN 20 H Creatinine 0.61 Estimated GFR > 60 BUN/Creatinine Ratio 32.8 H Glucose 145 H Calcium 8.1 L PFSH Social History household members: spouse Smoking Status: Former smoker Assessment & Plan Assessment & Plan narrative: Ms. Gentile is a 76W DM, HTN admitted for respiratory failure from COVID pneumonia. 1. Acute hypoxemic respiratory failure from COVID pneumonia -patient sats in 80s initially, improved on oxygen and currently 2L NC -COVID positive per PCR on 11/15, has had symptoms for 10 days. Vaccinated x3. -chest xray showed elevated BNP and bilateral pleural effusions, did get lasix, suspect secondary to infection but also consider CHF if not improving -continue remdesivir and steroids -wean oxygen as able -patient has possible history of COPD, has been documented on other notes -albuterol, mucinex and tessalon perles PRN 2. Type 2 Diabetes -check glucose achs, insulin sliding scale ordered 3. Hypertension -continue home medications, lisinopril, atenolol CODE: Full Proxy: Jose Gentile, I have utilized all available resources to reconcile the patient's home medications Dispo: Home in 1-2 days possibly with home O2. Time Spent With Patient Critical Care time: I spent a total of [] minutes of critical care time on this patient's care today; this time is exclusive of procedural time.
[2021-11-17] MEDS: ENOXAPARIN 40 MG/0.4 ML SYRINGE SUBCUT (10:02)
[2021-11-17] MEDS: guaiFENesin ER 600 MG TAB PO ×2 (10:02→20:06)
[2021-11-17] MEDS: CLOPIDOGREL 75 MG TABLET PO (10:03)
[2021-11-17] MEDS: atenoloL 50 MG TABLET PO (10:04)
[2021-11-17] MEDS: DEXAMETHASONE 10 MG/ML VIAL 6 MG IV (10:04)
[2021-11-17] MEDS: REMDESIVIR 100 MG in SODIUM CHLORIDE 0.9% 230 ML IV (10:11)
[2021-11-17 10:39] VITALS: BP 153/48; PULSE 65
[2021-11-17] MEDS: BRIMONIDINE 0.2% OPHTH 5 ML 1 DROPS EYE-RIGHT ×2 (10:39→20:28)
[2021-11-17] MEDS: lisinopriL 20 MG TABLET PO (10:39)
[2021-11-17] MEDS: TIMOLOL 0.25% OPHTH 1 DROPS EYE-RIGHT ×2 (10:40→20:28)
--- NOTE | 2021-11-17 12:40 | PC.NURSE ---
RN was not able to get a noon glucose check prior to pt getting her lunch tray delivered so glucose reading will not be accurate now. RN will recheck gluse later and monitor for any new symptoms. Pt is not symptomatic at this time.
[2021-11-17] MEDS: INSULIN LISPRO 100 UNIT/ML 3ML VIAL SUBCUT (17:44)
[2021-11-17] MEDS: INSULIN GLARGINE 100 UNIT/ML 3ML PEN 25 UNIT SUBCUT (17:44)
[2021-11-17 18:00] VITALS: BP 160/53; PULSE 60; RESP 18; TEMP 36.2; O2SAT 96
[2021-11-17] MEDS: ATORVASTATIN 20 MG TABLET 80 MG PO (20:06)
[2021-11-17] MEDS: LATANOPROST 0.005% OPHTH 2.5 ML 1 DROPS EYE-RIGHT (20:28)
[2021-11-17 21:08] VITALS: O2SAT 98
[2021-11-18] VITALS: BP 147/47; PULSE 65; RESP 16; TEMP 36.4; O2SAT 98
--- NOTE | 2021-11-18 04:22 | PC.NURSE ---
Pt allowed noc GLU check but refused insulin. Blood glucose measured 352. Informed patient and educated on protocol and reasoning behind controlling blood sugars. Pt continued to refuse insulin. Denied any symptoms. Will continue to monitor.
[2021-11-18 06:00] VITALS: BP 154/53; PULSE 62; RESP 19; TEMP 36.1; O2SAT 100
--- NOTE | 2021-11-18 08:09 | P.DS_ITS ---
History of Present Illness History of Present Illness Date Patient Seen: 11/18/21 Chief complaint: Cough, diarrhea x 10 days Narrative: Ms. Gentile is a 76W with PMH DM, HTN who comes to the hospital for cough and shortness of breath. She has been feeling symptoms for the last week. Cough is not productive. She has subjective fever and nausea and diarrhea. She has received COVID vaccination and one booster. In the ED workup was done, vitals notable for being afebrile, bp 200s/80s, o2 sat 80s on room air. She was placed on oxygen. Labs notable for WBC 8.4, hgb 12.8, plts 278. Creatinine 0.54. BNP 2020. COVID positive. Chest xray showed mild costophrenic blunting. She was ordered for steroids, remdesivir, and lasix and admitted for further treatment. Discharge Providers Provider Date of admission: 11/15/21 15:30 Discharge Date: 11/18/21 Primary care physician: Filipe Soni MD Discharge provider: Chema Pete DO Summary Hospital Course Discharge Diagnosis: 1. Acute hypoxemic respiratory failure from COVID pneumonia, improved -patient sats in 80s initially, improved on oxygen and currently 2L NC -COVID positive per PCR on 11/15, has had symptoms for 10 days. Vaccinated x3. -chest xray showed elevated BNP and bilateral pleural effusions, did get lasix, suspect secondary to infection but also consider CHF if not improving -continue remdesivir and steroids -wean oxygen as able -patient has possible history of COPD, has been documented on other notes -albuterol, mucinex and tessalon perles PRN 2. Type 2 Diabetes -check glucose achs, insulin sliding scale ordered 3. Hypertension -continue home medications, lisinopril, atenolol Hospital Course: Admitted for hypoxia secondary to COVID and req 2L NC. Received 3 days of remdesivir and decadron before weaning off O2. Able to discharge home to finish 1 week of po decadron. Time Spent with Patient Time spent: Greater than 30 minutes Exam Vital Signs (past 8 hours): - 11/18/21 06:00 Temperature 97 F L Pulse Rate 62 Respiratory Rate 19 Blood Pressure 154/53 H Pulse Oximetry 100 Oxygen Flow Rate 2 Oxygen Delivery Method Nasal Cannula Oxygen Flow Rate 2 Narrative Exam Narrative: GEN: no acute distress, intermittent coughing HEENT: moist mucous membranes, PERRL NECK: trachea midline, no JVD PULM: coarse breath sounds bilaterally improved CV: regular rate and rhythm, no murmurs ABD: soft, nontender, nondistended, no organomegaly EXT: warm and well perfused with no edema NEURO: awake, alert oriented no focal deficits Objective Labs Result Diagrams: 11/18/21 08:44 11/18/21 08:44 [facility] Social History household members: spouse Smoking Status: Former smoker Discharge Plan Discharge Plan Patient Disposition: Home Provider Discharge Comment: You were admitted with COVID since you required oxygen and were given a few days of remdesivir and steroids. You will continue an oral steroid for 1 more week. Discharge orders & Medications Prescriptions: New dexamethasone [Decadron] 6 mg tablet 6 mg PO DAILY 7 Days Qty: 7 0RF Rx Instructions: start on 11/19 Continued Premarin 0.625 mg Tablet 0.625 mg PO DAILY lisinopril 20 mg Tablet 20 mg PO DAILY atenolol 50 mg Tablet 50 mg DAILY clopidogrel [Plavix] 75 mg Tablet 75 mg PO DAILY atorvastatin 80 mg Tablet 80 mg PO DAILY metformin 500 mg Tablet 500 mg PO BID insulin glargine 100 unit/mL Cartridge 25 unit SUBCUT DAILY timolol 0.25 % Drops 1 drp EYE-RIGHT BID latanoprost 0.005 % Drops 1 drp EYE-RIGHT BEDTIME brimonidine 0.15 % Drops 1 drp EYE-RIGHT BID Follow up/Referrals: Filipe Soni MD [Primary Care Provider] - Discharge Data Primary Care Provider: Filipe Soni
[2021-11-18] MEDS: atenoloL 50 MG TABLET PO (08:22)
[2021-11-18] MEDS: CLOPIDOGREL 75 MG TABLET PO (08:22)
[2021-11-18] MEDS: ENOXAPARIN 40 MG/0.4 ML SYRINGE SUBCUT (08:22)
[2021-11-18] MEDS: DEXAMETHASONE 10 MG/ML VIAL 6 MG IV (08:22)
[2021-11-18] MEDS: guaiFENesin ER 600 MG TAB PO (08:22)
[2021-11-18 08:23] VITALS: BP 154/53
[2021-11-18] MEDS: lisinopriL 20 MG TABLET PO (08:23)
[2021-11-18] MEDS: BRIMONIDINE 0.2% OPHTH 5 ML 1 DROPS EYE-RIGHT (08:23)
[2021-11-18] MEDS: REMDESIVIR 100 MG in SODIUM CHLORIDE 0.9% 230 ML IV (08:23)
[2021-11-18] MEDS: TIMOLOL 0.25% OPHTH 1 DROPS EYE-RIGHT (08:23)
[2021-11-18] MEDS: INSULIN LISPRO 100 UNIT/ML 3ML VIAL SUBCUT ×2 (08:24→12:22)
[2021-11-18 08:55] LABS: Add Manual Diff / Slide Review NO; Basophils Absolute Auto 100 /uL (0-100); Basophils Percent Auto 0.6 % (0-2); Eosinophils Absolute Auto 100 /uL (0-450); Eosinophils Percent Auto 0.6 % (2-4); Hematocrit 37.6 % (36-46); Hemoglobin 12.7 g/dL (12.0-16.0); Lymphocytes Absolute Auto 3200 /uL (1100-4500); Mean Corpuscular HGB Conc 33.9 % (30-36); Mean Corpuscular Hemoglobin 31.8 PG (26-34); Mean Corpuscular Volume 93.9 fL (80-100); Monocytes Absolute Auto 1100 /uL (0-900); Monocytes Percent Auto 10.6 % (3-14); Neutrophils Absolute Auto 6300 /uL (1500-7000); Neutrophils Percent Auto 58.2 % (50-75); Platelet Count 356 X10^3/uL (150-400); Red Cell Distribution Width 13.1 % (11.6-14.8); White Blood Cell Count 10.8 X10^3/uL (4.5-11.0)
[2021-11-18 09:12] LABS: BUN Creatinine Ratio 30.8 (6-22); Blood Urea Nitrogen 20 mg/dL (7-17); Calcium 8.3 mg/dL (8.4-10.2); Carbon Dioxide 33 mmol/L (22-32); Chloride 95 mmol/L (98-107); Estimated Glomerular Filt Rate > 60 mL/min (>60); Glucose 134 mg/dL (80-110); HEMOLYSIS < 15 (0-50); Potassium 4.3 mmol/L (3.4-5.1); Sodium 132 mmol/L (137-145)
[2021-11-18 12:23] VITALS: BP 143/44; PULSE 62; RESP 16; TEMP 36.2; O2SAT 93
== END 2021-11-18 13:57 | disposition home or self-care (01) | DRG 177 ==
LOC: ED 15:22 → AC 15:32
PROVIDERS: Admitting Provider Student in an Organized Health Care Education/Training Program; Emergency Provider Emergency Medicine; PCP Internal Medicine; Referring Provider Emergency Medicine; Visit Provider Student in an Organized Health Care Education/Training Program
DX: U07.1 COVID-19 (principal); J12.82 Pneumonia due to coronavirus disease 2019; J96.01 Acute respiratory failure with hypoxia; J90 Pleural effusion, not elsewhere classified; E11.9 Type 2 diabetes mellitus without complications; I10 Essential (primary) hypertension; Z79.4 Long term (current) use of insulin; Z79.84 Long term (current) use of oral hypoglycemic drugs; Z87.891 Personal history of nicotine dependence
CPT/HCPCS: 36415; 71046; 80048; 80053; 82962; 83036; 83605; 83880; 84145; 84484; 85025; 85379; 85610; 87635; 93005; 94618; 96374; 99285; C9803; A9270; J1100; J1650; J1815; J1940

== ENCOUNTER 2021-12-21 22:44 | Emergency (ER) | payer MEDICARE, OTHER, SELFPAY ==
[2021-11-15 16:33] VITALS: BMI 28.3
[2021-12-21 22:53] VITALS: BP 207/98; PULSE 88; RESP 20; TEMP 36.7; O2SAT 94
--- NOTE | 2021-12-21 23:00 | DI.RAD.S_ITS ---
PROCEDURE: XR CHEST 2V INDICATIONS: shortness of breath TECHNIQUE: 2 views of the chest were acquired. COMPARISON: [facility], , XR CHEST 2V, 04/20/2018, 13:53. [facility], CR, XR CHEST 2V, 11/15/2021, 12:16. FINDINGS: Surgical changes and devices: None. Lungs and pleura: There is hyperinflation of the lungs with flattening of the hemidiaphragms compatible with COPD. No acute consolidation. No pleural effusions or pneumothorax. Mediastinum: Mediastinal contours are normal. Heart size is normal. Bones and chest wall: No suspicious bony abnormalities. Soft tissues appear unremarkable. IMPRESSION: 1. No acute cardiopulmonary disease. 2. Findings compatible with COPD redemonstrated. Dictated by: Jimmy Payne M.D. on 12/22/2021 at 0:42 Approved by: Jimmy Payne M.D. on 12/22/2021 at 0:49
--- NOTE | 2021-12-21 23:09 | DI.CT.S_ITS ---
PROCEDURE: CT ANGIO HEAD AND NECK INDICATIONS: word searching x 1 week TECHNIQUE: Pre-contrast 4.5 mm thick sections acquired from the foramen magnum to the vertex. After the administration of intravenous contrast, 1 mm thick sections acquired from the aortic arch through the [place] of [place]. Post-contrast 4.5 mm thick sections then re-acquired from the foramen magnum to the vertex. 3-dimensional nudnnvm-koieayhvd-uvomwsidhj (MIP) and/or volume rendering reformats were acquired of the central intracranial vasculature and neck separately. For radiation dose reduction, the following was used: automated exposure control, adjustment of mA and/or kV according to patient size. COMPARISON: None. FINDINGS: Image quality: Excellent. BRAIN: CSF spaces: Basal cisterns are patent. No extra-axial fluid collections. Ventricles are normal in size and shape. Brain: No intracranial hemorrhage, mass, or mass effect. Grimaldo-white matter interface appears preserved. No abnormal intracranial enhancement. Skull and face: Calvarium and facial bones appear intact, without suspicious lesions. Orbits appear normal. Sinuses: Sinuses and mastoids are clear. HEAD CT ANGIOGRAPHY: Anterior circulation: Intracranial internal carotid arteries are normal in size and appear patent bilaterally. There is mild atherosclerotic calcification along the cavernous segments of the internal carotid arteries. The paired anterior cerebral arteries appear patent bilaterally. The anterior communicating artery also appears patent. The middle cerebral arteries appear patent bilaterally. No high-grade stenosis, occlusion, or filling defects. No cerebral aneurysms identified. Posterior circulation: Visualized portions of the vertebral arteries appear patent, and join to form a patent basilar artery. There is focal moderate narrowing within the distal left vertebral artery. The posterior cerebral arteries appears patent bilaterally. There is persistent circulation on the left, with the left posterior cerebral artery supplied by a posterior communicating artery. No high-grade stenosis, occlusion, or filling defects. No cerebral aneurysms identified. NECK CT ANGIOGRAPHY: Carotid system: The great vessels demonstrate a conventional anatomy as they arise from the aortic arch. The origins of the common carotid arteries appear patent. The common carotid arteries demonstrate normal caliber and courses. There is bulky calcified plaque at the carotid bifurcations and in the carotid bulbs bilaterally. There is associated severe narrowing of greater than 70% in the right carotid bulb. On the left, there is also moderate to severe narrowing of approximately 60-70%. The subsequent internal carotid arteries are relatively small in caliber but appear patent bilaterally. Posterior circulation: The origins of the vertebral arteries both appear grossly patent but there is moderate to severe narrowing at the origin of the left vertebral artery and moderate narrowing at the origin of the right vertebral artery. The more superior extracranial portions of both vertebral arteries appear patent. There is a left dominant vertebrobasilar system. The vertebral arteries join to form a patent basilar artery. Soft tissues: Visualized lungs demonstrate moderate to severe centrilobular emphysematous changes bilaterally. Bones: No suspicious bony lesions. Visualized cervical spine demonstrates straightening of the cervical lordosis. IMPRESSION: 1. No acute intracranial abnormality. 2. No high-grade stenosis or occlusion of the central intracranial arteries. 3. 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 4. Bilateral narrowing at the origins of the vertebral arteries, with moderate to severe narrowing on the left and moderate narrowing on the right. Any quantitative measurements of stenosis were performed using NASCET criteria. Dictated by: Jimmy Payne M.D. on 12/22/2021 at 1:00 Approved by: Jimmy Payne M.D. on 12/22/2021 at 1:08
[2021-12-21 23:22] LABS: Lactate (Lactic Acid) 1.7 mmol/L (0.7-2.1)
[2021-12-21 23:24] LABS: Add Manual Diff / Slide Review NO; Alanine Aminotransferase 77 IU/L (<35); Albumin Globulin Ratio 1.3 (1.0-2.8); Alkaline Phosphatase 80 U/L (38-126); Aspartate Aminotransferase 56 IU/L (14-36); BUN Creatinine Ratio 15.9 (6-22); Basophils Absolute Auto 100 /uL (0-100); Basophils Percent Auto 0.8 % (0-2); Bilirubin Total 0.4 mg/dL (0.2-1.3); Blood Urea Nitrogen 10 mg/dL (7-17); Carbon Dioxide 29 mmol/L (22-32); Chloride 97 mmol/L (98-107); Creatine Kinase 377 U/L (30-135); Eosinophils Absolute Auto 200 /uL (0-450); Eosinophils Percent Auto 1.7 % (2-4); Estimated Glomerular Filt Rate > 60 mL/min (>60); Globulin 3.2 g/dL (1.7-4.1); Glucose 187 mg/dL (80-110); HEMOLYSIS 16 (0-50); Hematocrit 37.8 % (36-46); Hemoglobin 12.7 g/dL (12.0-16.0); Lymphocytes Absolute Auto 3000 /uL (1100-4500); Mean Corpuscular HGB Conc 33.7 % (30-36); Mean Corpuscular Hemoglobin 32.1 PG (26-34); Mean Corpuscular Volume 95.1 fL (80-100); Monocytes Absolute Auto 900 /uL (0-900); Monocytes Percent Auto 8.2 % (3-14); Neutrophils Absolute Auto 6600 /uL (1500-7000); Neutrophils Percent Auto 61.3 % (50-75); Platelet Count 426 X10^3/uL (150-400); Potassium 4.3 mmol/L (3.4-5.1); Red Blood Cell Count 3.97 X10^6/uL (4.0-5.2); Red Cell Distribution Width 14.3 % (11.6-14.8); Sodium 134 mmol/L (137-145); Total Protein 7.2 g/dL (6.3-8.2); White Blood Cell Count 10.8 X10^3/uL (4.5-11.0)
[2021-12-21 23:34] LABS: NT-proBNP (BNP-Adult 18+) 2240 pg/mL (<450)
[2021-12-21 23:36] VITALS: BP 180/79
[2021-12-21 23:37] VITALS: PULSE 69; O2SAT 95
[2021-12-21 23:37] LABS: Troponin I 0.015 ng/mL (0.01-0.034)
[2021-12-21 23:39] LABS: CKMB % Relative Index 1.6 % (1.5-5.0); Creatine Kinase MB 6.13 ng/mL (<2.37)
[2021-12-22] VITALS (25 sets, daily range): BP systolic 138–210; BP diastolic 61–81; PULSE 56–79; RESP 16–23; O2SAT 91–96
[2021-12-22] MEDS: methylPREDNISolone 125 MG/2 ML VIAL (00:22)
[2021-12-22] MEDS: diphenhydrAMINE 50 MG/ML VIAL (00:22)
--- NOTE | 2021-12-22 01:18 | ED_ITS ---
HPI - Neuro Symptoms/Deficit <Tracy Shar, DO - Last Filed: 01/01/22 02:48> General Chief Complaint: Shortness of Breath/Dyspnea Stated Complaint: hbp, breathing issues Time Seen by Provider: 12/21/21 23:09 Source: patient Mode of arrival: Ambulatory History of Present Illness HPI Narrative: Patient is a 76-year-old female with history of CVA with right visual loss, COPD, recent COVID infection hospitalization November 15 through November 17 presenting today with word finding difficulty and numb talking. She says her word-finding difficulty has been ongoing for about 1 week. It does not happen all the time but some the time which is very unusual for her. She also has numbness of tongue but not of the face. His she denies any new weakness in her extremities. She denies any chest pain. She does have chronic ongoing shortness of breath not any worse than normal. She denies orthopnea fever chills body aches abdominal pain nausea vomiting. On Anticoagulants: Yes (plavix) Related Data Home Medications Medication Instructions Recorded Confirmed atenolol 50 mg tablet 50 mg DAILY 11/15/21 11/15/21 atorvastatin 80 mg tablet 80 mg PO DAILY 11/15/21 11/15/21 brimonidine 0.15 % eye drops 1 drp EYE-RIGHT BID 11/15/21 11/15/21 clopidogrel 75 mg tablet (Plavix) 75 mg PO DAILY 11/15/21 11/15/21 conjugated estrogens 0.625 mg 0.625 mg PO DAILY 11/15/21 11/15/21 tablet (Premarin) insulin glargine 100 unit/mL 25 unit SUBCUT DAILY 11/15/21 11/15/21 subcutaneous cartridge latanoprost 0.005 % eye drops 1 drp EYE-RIGHT BEDTIME 11/15/21 11/15/21 lisinopril 20 mg tablet 20 mg PO DAILY 11/15/21 11/15/21 metformin 500 mg tablet 500 mg PO BID 11/15/21 11/15/21 timolol 0.25 % eye drops 1 drp EYE-RIGHT BID 11/15/21 11/15/21 Previous Rx's Medication Instructions Recorded prednisone 20 mg tablet 40 mg PO DAILY #10 tabs 12/22/21 Allergies Allergy/AdvReac Type Severity Reaction Status Date / Time codeine [CODEINE] Allergy Unknown Verified 11/15/21 11:52 shellfish derived Allergy Unknown Verified 11/15/21 11:52 [SHELLFISH DERIVED] Review of Systems <Tracy Myles DO - Last Filed: 01/01/22 02:48> Review of Systems Narrative: GENERAL: Denies chills, fatigue, malaise, fever, sweats, travel HEENT: Denies sinus pain, ear pain, sore throat, difficulty swallowing, neck pain RESPIRATORY: See HPI CARDIOVASCULAR: Denies chest pain, palpitations, orthopnea, edema GASTROINTESTINAL: Denies nausea, vomiting, abdominal pain, diarrhea, constipation, melena. : Denies dysuria, frequency, incontinence, hematuria, urinary retention, flank pain. MUSCULOSKELETAL: Denies weakness, joint pain, or bony pain SKIN: No rash, no erythema, no pruritus NEUROLOGIC: See HPI PSYCHIATRIC: No concerning psychosocial issues. 12 point review of systems is negative except for those stated above and HPI Hematologic/Lymphatic On Anticoagulants: Yes (plavix) Patient History <Tracy Myles DO - Last Filed: 01/01/22 02:48> Social History household members: spouse Smoking Status: Former smoker Smoking Status: Former smoker alcohol intake frequency: holidays/special occasions only Substance Use Type: does not use Exam <Tracy Myles DO - Last Filed: 01/01/22 02:48> Initial Vital Signs Initial Vital Signs: Vital Signs Temperature 98.1 F 12/21/21 22:53 Pulse Rate 88 12/21/21 22:53 Respiratory Rate 20 12/21/21 22:53 Blood Pressure 207/98 H 12/21/21 22:53 Pulse Oximetry 94 12/21/21 22:53 Oxygen Delivery Method 12/21/21 22:53 GENERAL: Alert pleasant 76-year-old female without acute distress HEENT: Head atraumatic,EOMI, pupils reactive, face symmetric, moist mucous membranes CARDIOVASCULAR: Regular rate and rhythm without murmurs, rubs or gallops. RESPIRATORY: Breath sounds equal bilaterally, no wheezes rales or rhonchi. ABDOMEN: Soft, nontender. Normoactive bowel sounds all 4 quadrants. No guarding or rebound. EXTREMITIES: Normal range of motion, no clubbing or edema. Neurovascularly intact NEUROLOGICAL: Alert and oriented x4.Normal gait and speech. Cranial nerves II through XII grossly intact. Good ddzlcf-um-cpce, good [id number]-onqx, strength equal bilaterally, no dysarthria or aphasia, sensation in tact to soft touch bilaterally, no visual changes, no facial droop SKIN: Warm, dry, no laceration, no petechiae, no rashes or lesions. <Sapphire Chambers, DO - Last Filed: 12/26/21 07:11> Initial Vital Signs Initial Vital Signs: Vital Signs Temperature 98.1 F 12/21/21 22:53 Pulse Rate 88 12/21/21 22:53 Respiratory Rate 20 12/21/21 22:53 Blood Pressure 207/98 H 12/21/21 22:53 Pulse Oximetry 94 12/21/21 22:53 Oxygen Delivery Method 12/21/21 22:53 Course <Tracy Myles DO - Last Filed: 01/01/22 02:48> Orders Ordered: Discontinued Medications Alprazolam (Alprazolam 0.5 Mg Tablet) 0.5 mg PO NOW ONE Stop: 12/22/21 07:48 Last Admin: 12/22/21 08:09 Dose: 0.5 mg Documented By: YU Atenolol (Atenolol 50 Mg Tablet) 50 mg PO NOW ONE Stop: 12/22/21 07:48 Last Admin: 12/22/21 08:09 Dose: 50 mg Documented By: YU Clopidogrel Bisulfate (Clopidogrel 75 Mg Tablet) 75 mg PO NOW ONE Stop: 12/22/21 07:48 Last Admin: 12/22/21 08:09 Dose: 75 mg Documented By: YU Lisinopril (Lisinopril 20 Mg Tablet) 20 mg PO NOW ONE Stop: 12/22/21 07:48 Last Admin: 12/22/21 08:10 Dose: 20 mg Documented By: RLS Vital Signs Vital signs: Vital Signs - 8 hr 12/22/21 03:00 12/22/21 03:30 12/22/21 04:00 Pulse Rate 72 57 L 56 L Respiratory Rate 20 20 Blood Pressure Pulse Oximetry 93 12/22/21 04:30 12/22/21 05:00 12/22/21 05:30 Pulse Rate 63 64 65 Respiratory Rate 19 17 Blood Pressure Pulse Oximetry 12/22/21 06:00 12/22/21 06:30 12/22/21 07:00 Pulse Rate 60 63 68 Respiratory Rate 19 19 19 Blood Pressure Pulse Oximetry 12/22/21 07:21 12/22/21 07:21 12/22/21 08:10 Pulse Rate 72 71 Respiratory Rate 16 Blood Pressure 195/81 H 195/81 H Pulse Oximetry 92 12/22/21 07:37 12/22/21 08:00 12/22/21 08:30 Pulse Rate 79 68 69 Respiratory Rate 21 23 Blood Pressure Pulse Oximetry 95 12/22/21 08:45 12/22/21 08:45 Pulse Rate 66 Respiratory Rate 21 Blood Pressure 138/64 Pulse Oximetry 96 <Sapphire Chambers, - Last Filed: 12/26/21 07:11> Orders Ordered: Discontinued Medications Alprazolam (Alprazolam 0.5 Mg Tablet) 0.5 mg PO NOW ONE Stop: 12/22/21 07:48 Last Admin: 12/22/21 08:09 Dose: 0.5 mg Documented By: YU Atenolol (Atenolol 50 Mg Tablet) 50 mg PO NOW ONE Stop: 12/22/21 07:48 Last Admin: 12/22/21 08:09 Dose: 50 mg Documented By: YU Clopidogrel Bisulfate (Clopidogrel 75 Mg Tablet) 75 mg PO NOW ONE Stop: 12/22/21 07:48 Last Admin: 12/22/21 08:09 Dose: 75 mg Documented By: YU Lisinopril (Lisinopril 20 Mg Tablet) 20 mg PO NOW ONE Stop: 12/22/21 07:48 Last Admin: 12/22/21 08:10 Dose: 20 mg Documented By: YU Consultations Consultation #1: Dr. Davis, neurology telestroke. Does not recommend carotid intervention at this time. Agree with current medications. No CVA on MRI. She did review images. Reviewed with patient's home medications. Time: 10:32 Vital Signs Vital signs: Vital Signs - 8 hr 12/22/21 03:00 12/22/21 03:30 12/22/21 04:00 Pulse Rate 72 57 L 56 L Respiratory Rate 20 20 Blood Pressure Pulse Oximetry 93 12/22/21 04:30 12/22/21 05:00 12/22/21 05:30 Pulse Rate 63 64 65 Respiratory Rate 19 17 Blood Pressure Pulse Oximetry 12/22/21 06:00 12/22/21 06:30 12/22/21 07:00 Pulse Rate 60 63 68 Respiratory Rate 19 19 19 Blood Pressure Pulse Oximetry 12/22/21 07:21 12/22/21 07:21 12/22/21 08:10 Pulse Rate 72 71 Respiratory Rate 16 Blood Pressure 195/81 H 195/81 H Pulse Oximetry 92 12/22/21 07:37 12/22/21 08:00 12/22/21 08:30 Pulse Rate 79 68 69 Respiratory Rate 21 23 Blood Pressure Pulse Oximetry 95 12/22/21 08:45 12/22/21 08:45 Pulse Rate 66 Respiratory Rate 21 Blood Pressure 138/64 Pulse Oximetry 96 MDM - Neuro Symptoms/Deficit <Tracy Myles DO - Last Filed: 01/01/22 02:48> Lab Data Result diagrams: 12/21/21 22:56 12/21/21 22:56 Labs: Lab Results 12/21/21 12/21/21 12/21/21 Range/Units 22:56 22:56 22:56 WBC 10.8 (4.5-11.0) X10^3/uL RBC 3.97 L (4.0-5.2) X10^6/uL Hgb 12.7 (12.0-16.0) g/dL Hct 37.8 (36-46) % MCV 95.1 (80-100) fL MCH 32.1 (26-34) PG MCHC 33.7 (30-36) % RDW 14.3 (11.6-14.8) % Plt Count 426 H (150-400) X10^3/uL Neut % (Auto) 61.3 (50-75) % Lymph % (Auto) 28.0 (25-40) % Mccreary % (Auto) 8.2 (3-14) % Eos % (Auto) 1.7 L (2-4) % Baso % (Auto) 0.8 (0-2) % Neut # (Auto) 6600 (6520-7398) /uL Lymph # (Auto) 3000 (5114-7681) /uL Mccreary # (Auto) 900 (0-900) /uL Eos # (Auto) 200 (0-450) /uL Baso # (Auto) 100 (0-100) /uL Sodium 134 L (137-145) mmol/L Potassium 4.3 (3.4-5.1) mmol/L Chloride 97 L (98-107) mmol/L Carbon Dioxide 29 (22-32) mmol/L BUN 10 (7-17) mg/dL Creatinine 0.63 (0.52-1.04) mg/dL Estimated GFR > 60 (>60) mL/min BUN/Creatinine Ratio 15.9 (6-22) Glucose 187 H (80-110) mg/dL Lactate 1.7 (0.7-2.1) mmol/L Calcium 9.0 (8.4-10.2) mg/dL Total Bilirubin 0.4 (0.2-1.3) mg/dL AST 56 H (14-36) IU/L ALT 77 H (<35) IU/L Alkaline Phosphatase 80 (38-126) U/L Total Creatine Kinase (30-135) U/L CK-MB (CK-2) (<2.37) ng/mL CK-MB (CK-2) Rel Index (1.5-5.0) % Troponin I (0.01-0.034) ng/mL NT-Pro-B Natriuret Pep (<450) pg/mL Total Protein 7.2 (6.3-8.2) g/dL Albumin 4.0 (3.5-5.0) g/dL Globulin 3.2 (1.7-4.1) g/dL Albumin/Globulin Ratio 1.3 (1.0-2.8) 12/21/21 12/21/21 Range/Units 22:56 22:56 WBC (4.5-11.0) X10^3/uL RBC (4.0-5.2) X10^6/uL Hgb (12.0-16.0) g/dL Hct (36-46) % MCV (80-100) fL MCH (26-34) PG MCHC (30-36) % RDW (11.6-14.8) % Plt Count (150-400) X10^3/uL Neut % (Auto) (50-75) % Lymph % (Auto) (25-40) % Mccreary % (Auto) (3-14) % Eos % (Auto) (2-4) % Baso % (Auto) (0-2) % Neut # (Auto) (0261-2078) /uL Lymph # (Auto) (5581-8999) /uL Mccreary # (Auto) (0-900) /uL Eos # (Auto) (0-450) /uL Baso # (Auto) (0-100) /uL Sodium (137-145) mmol/L Potassium (3.4-5.1) mmol/L Chloride (98-107) mmol/L Carbon Dioxide (22-32) mmol/L BUN (7-17) mg/dL Creatinine (0.52-1.04) mg/dL Estimated GFR (>60) mL/min BUN/Creatinine Ratio (6-22) Glucose (80-110) mg/dL Lactate (0.7-2.1) mmol/L Calcium (8.4-10.2) mg/dL Total Bilirubin (0.2-1.3) mg/dL AST (14-36) IU/L ALT (<35) IU/L Alkaline Phosphatase (38-126) U/L Total Creatine Kinase 377 H (30-135) U/L CK-MB (CK-2) 6.13 H (<2.37) ng/mL CK-MB (CK-2) Rel Index 1.6 (1.5-5.0) % Troponin I 0.015 (0.01-0.034) ng/mL NT-Pro-B Natriuret Pep 2240 H (<450) pg/mL Total Protein (6.3-8.2) g/dL Albumin (3.5-5.0) g/dL Globulin (1.7-4.1) g/dL Albumin/Globulin Ratio (1.0-2.8) Imaging Data CTA - brain/neck: Radiologist's Impression: CT Scan Report Signed Patient: Sarahi Gentile MR#: [id number] : 1945 Acct:[id number] Age/Sex: 76 / F Date of Service: 12/21/21 Loc: ED Accession Number: [id number] ?? Procedure: CT angio head and neck Ordering Provider: Tracy Myles D.O. PROCEDURE:? CT ANGIO HEAD AND NECK ? INDICATIONS:? word searching x 1 week ? TECHNIQUE:? Pre-contrast 4.5 mm thick sections acquired from the foramen magnum to the vertex.? After the administration of intravenous contrast, 1 mm thick sections acquired from the aortic arch through the [place] of [place].? Post-contrast 4.5 mm thick sections then re- acquired from the foramen magnum to the vertex.? 3-dimensional jrvkqgd-qlzklbkmb-evqsgmesql (MIP) and/or volume rendering reformats were acquired of the central intracranial vasculature and neck separately. For radiation dose reduction, the following was used:? automated exposure control, adjustment of mA and/or kV according to patient size.? ? COMPARISON:? None. ? FINDINGS:? Image quality:? Excellent.? ? BRAIN:? CSF spaces:? Basal cisterns are patent.? No extra-axial fluid collections.? Ventricles are normal in size and shape.? ? Brain:? No intracranial hemorrhage, mass, or mass effect.? Grimaldo-white matter interface appears preserved.? No abnormal intracranial enhancement.? ? Skull and face:? Calvarium and facial bones appear intact, without suspicious lesions.? Orbits appear normal.? ? Sinuses:? Sinuses and mastoids are clear.? ? HEAD CT ANGIOGRAPHY:? Anterior circulation:? Intracranial internal carotid arteries are normal in size and appear patent bilaterally.? There is mild atherosclerotic calcification along the cavernous segments of the internal carotid arteries.? The paired anterior cerebral arteries appear patent bilaterally.? The anterior communicating artery also appears patent. The middle cerebral arteries appear patent bilaterally.? No high-grade stenosis, occlusion, or filling defects.? No cerebral aneurysms identified. ? Posterior circulation:? Visualized portions of the vertebral arteries appear patent, and join to form a patent basilar artery.? There is focal moderate narrowing within the distal left vertebral artery.? The posterior cerebral arteries appears patent bilaterally.? There is persistent circulation on the left, with the left posterior cerebral artery supplied by a posterior communicating artery.? No high-grade stenosis, occlusion, or filling defects.? No cerebral aneurysms identified. ? NECK CT ANGIOGRAPHY:? Carotid system:? The great vessels demonstrate a conventional anatomy as they arise from the aortic arch.? The origins of the common carotid arteries appear patent.? The common carotid arteries demonstrate normal caliber and courses.? There is bulky calcified plaque at the carotid bifurcations and in the carotid bulbs bilaterally.? There is associated severe narrowing of greater than 70% in the right carotid bulb.? On the left, there is also moderate to severe narrowing of approximately 60-70%.? The subsequent internal carotid arteries are relatively small in caliber but appear patent bilaterally. ? Posterior circulation:? The origins of the vertebral arteries both appear grossly patent but there is moderate to severe narrowing at the origin of the left vertebral artery and moderate narrowing at the origin of the right vertebral artery. The more superior extracranial portions of both vertebral arteries appear patent.? There is a left dominant vertebrobasilar system.? The vertebral arteries join to form a patent basilar artery.? ? Soft tissues:? Visualized lungs demonstrate moderate to severe centrilobular emphysematous changes bilaterally. ? Bones:? No suspicious bony lesions.? Visualized cervical spine demonstrates straightening of the cervical lordosis. ? ? IMPRESSION:? ? 1. No acute intracranial abnormality. ? 2. No high-grade stenosis or occlusion of the central intracranial arteries. ? 3. 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 ? 4. Bilateral narrowing at the origins of the vertebral arteries, with moderate to severe narrowing on the left and moderate narrowing on the right.? ? Any quantitative measurements of stenosis were performed using NASCET criteria.? ? ? Dictated by: Jimmy Payne M.D. on 12/22/2021 at 1:00 ? ? ECG Data Interpretation: Who for this rhythm rate 69 SD interval 190 QRS 110 QTC 42 incomplete left bundle-branch block similar to previous EKG no ST changes or T-wave inversions MDM Narrative Medical decision making narrative: Patient presents today with difficulty finding words her about 1 week and today started having some intermittent in tongue and mouth numbness. She is noted to be hypertensive she is not normally this hypertensive. CT angio does show some bilateral stenosis 60-70%. Patient is a very low NIH and is out of the window for tPA Dr. Jones stroke Dr. Mayen did states he has MRI if MRI shows CVA may require carotid endarterectomy on that side. The of requests call back after MRI results. With not need an emergent carotid endarterectomy could it but could likely be scheduled as an outpatient. Patient signed out to Dr. Chambers <Sapphire Chambers, DO - Last Filed: 12/26/21 07:11> Lab Data Labs: Lab Results 12/21/21 12/21/21 12/21/21 Range/Units 22:56 22:56 22:56 WBC 10.8 (4.5-11.0) X10^3/uL RBC 3.97 L (4.0-5.2) X10^6/uL Hgb 12.7 (12.0-16.0) g/dL Hct 37.8 (36-46) % MCV 95.1 (80-100) fL MCH 32.1 (26-34) PG MCHC 33.7 (30-36) % RDW 14.3 (11.6-14.8) % Plt Count 426 H (150-400) X10^3/uL Neut % (Auto) 61.3 (50-75) % Lymph % (Auto) 28.0 (25-40) % Mccreary % (Auto) 8.2 (3-14) % Eos % (Auto) 1.7 L (2-4) % Baso % (Auto) 0.8 (0-2) % Neut # (Auto) 6600 (0541-1378) /uL Lymph # (Auto) 3000 (5842-2708) /uL Mccreary # (Auto) 900 (0-900) /uL Eos # (Auto) 200 (0-450) /uL Baso # (Auto) 100 (0-100) /uL Sodium 134 L (137-145) mmol/L Potassium 4.3 (3.4-5.1) mmol/L Chloride 97 L (98-107) mmol/L Carbon Dioxide 29 (22-32) mmol/L BUN 10 (7-17) mg/dL Creatinine 0.63 (0.52-1.04) mg/dL Estimated GFR > 60 (>60) mL/min BUN/Creatinine Ratio 15.9 (6-22) Glucose 187 H (80-110) mg/dL Lactate 1.7 (0.7-2.1) mmol/L Calcium 9.0 (8.4-10.2) mg/dL Total Bilirubin 0.4 (0.2-1.3) mg/dL AST 56 H (14-36) IU/L ALT 77 H (<35) IU/L Alkaline Phosphatase 80 (38-126) U/L Total Creatine Kinase (30-135) U/L CK-MB (CK-2) (<2.37) ng/mL CK-MB (CK-2) Rel Index (1.5-5.0) % Troponin I (0.01-0.034) ng/mL NT-Pro-B Natriuret Pep (<450) pg/mL Total Protein 7.2 (6.3-8.2) g/dL Albumin 4.0 (3.5-5.0) g/dL Globulin 3.2 (1.7-4.1) g/dL Albumin/Globulin Ratio 1.3 (1.0-2.8) 12/21/21 12/21/21 Range/Units 22:56 22:56 WBC (4.5-11.0) X10^3/uL RBC (4.0-5.2) X10^6/uL Hgb (12.0-16.0) g/dL Hct (36-46) % MCV (80-100) fL MCH (26-34) PG MCHC (30-36) % RDW (11.6-14.8) % Plt Count (150-400) X10^3/uL Neut % (Auto) (50-75) % Lymph % (Auto) (25-40) % Mccreary % (Auto) (3-14) % Eos % (Auto) (2-4) % Baso % (Auto) (0-2) % Neut # (Auto) (1693-1970) /uL Lymph # (Auto) (1703-2952) /uL Mccreary # (Auto) (0-900) /uL Eos # (Auto) (0-450) /uL Baso # (Auto) (0-100) /uL Sodium (137-145) mmol/L Potassium (3.4-5.1) mmol/L Chloride (98-107) mmol/L Carbon Dioxide (22-32) mmol/L BUN (7-17) mg/dL Creatinine (0.52-1.04) mg/dL Estimated GFR (>60) mL/min BUN/Creatinine Ratio (6-22) Glucose (80-110) mg/dL Lactate (0.7-2.1) mmol/L Calcium (8.4-10.2) mg/dL Total Bilirubin (0.2-1.3) mg/dL AST (14-36) IU/L ALT (<35) IU/L Alkaline Phosphatase (38-126) U/L Total Creatine Kinase 377 H (30-135) U/L CK-MB (CK-2) 6.13 H (<2.37) ng/mL CK-MB (CK-2) Rel Index 1.6 (1.5-5.0) % Troponin I 0.015 (0.01-0.034) ng/mL NT-Pro-B Natriuret Pep 2240 H (<450) pg/mL Total Protein (6.3-8.2) g/dL Albumin (3.5-5.0) g/dL Globulin (1.7-4.1) g/dL Albumin/Globulin Ratio (1.0-2.8) Imaging Data MRI brain: Radiologist's Impression: Close Brain MRI (Signed) Lavelle Moore - 12/22/21 Head/Neck CTA (Signed) Jimmy Payne - 12/21/21 Chest X-Ray (Signed) Jimmy Payne - 12/21/21 Launch?[place] [address] Magnetic Resonance Report Signed Patient: Sarahi Gentile MR#: [id number] : 1945 Acct:[id number] Age/Sex: 76 / F Date of Service: 12/22/21 Loc: Accession Number: [id number] ?? Procedure: MR head/brain wo con Ordering Provider: Tracy Myles D.O. PROCEDURE:? MR HEAD/BRAIN WO CON ? INDICATIONS:? possible stroke ? TECHNIQUE:? Non-contrast axial T1 spin echo, axial T2 fast spin echo, sagittal and axial FLAIR, coronal T2 fast spin echo, axial gradient echo, axial diffusion and ADC through the brain.? ? COMPARISON:? [facility], RG, MRI ANGIOGRAM NECK, 08/24/2005, 14:25.? [facility], CT, CT ANGIO HEAD AND NECK, 12/21/2021, 23:48. ? FINDINGS:? Image quality:? Excellent.? ? CSF spaces:? Ventricles appear symmetric in size and shape.? Basal cisterns are patent.? No extra-axial fluid collections.? ? Brain:? No intracranial bleeds or mass effects.? There is cerebral volume loss for age.? There are mild periventricular and deep white matter chronic small vessel ischemic changes.? Brainstem appears normal.? Diffusion-weighted images show no acute ischemic insults.? No chronic ischemic insults.? Normal intravascular flow voids are present.? ? Skull and face:? Calvarial bone marrow is normal in signal.? Orbits are normal.? ? Sinuses:? Sinuses and mastoids are clear.? ? IMPRESSION:? ? 1. No acute intracranial abnormalities. ? 2. Cerebral volume loss and chronic microvascular ischemic changes. ? ? ? Dictated by: Lavelle Moore M.D. on 12/22/2021 at 10:02 ? ? Approved by: Lavelle Moore M.D. on 12/22/2021 at 10:04?? MDM Narrative Medical decision making narrative: Patient presents today with difficulty finding words her about 1 week and today started having some intermittent in tongue and mouth numbness. She is noted to be hypertensive she is not normally this hypertensive. CT angio does show some bilateral stenosis 60-70%. Patient is a very low NIH and is out of the window for tPA Dr. Jones stroke Dr. Mayen did states he has MRI if MRI shows CVA may require carotid endarterectomy on that side. The of requests call back after MRI results. With not need an emergent carotid endarterectomy could it but could likely be scheduled as an outpatient. Patient signed out to Dr. Chambers Patient signed out to myself by Dr. Myles. She has had some intermittent to ngue and mouth numbness with some difficulty with word finding x1 week she has bilateral stenosis 60-70% and far outside the window for tPA or Code IR. Patient case was discussed with telestroke. They recommend MRI and request callback with MRI results. Patient MRI is negative, at this time they do not recommend adjusting medications or intervention for symptomatic carotids as patient has a negative MR agree with current plan for treatment. Would give teaching that Premarin can increase clotting risk. Discharge Plan Departure Patient Disposition: Home Clinical Impression: COPD (chronic obstructive pulmonary disease), Paresthesia Instructions: Chronic Obstructive Pulmonary Disease Activity Restrictions/Additional Instructions: Your imaging today was reviewed with Telestroke. Your MRI does not show findings of a stroke today. They recommend you continue home medications including your Plavix, blood pressure, cholesterol and diabetes medications. You may continue to take Premarin daily but this is an oral estrogen and can increase clotting and stroke risk Please take prednisone take daily for the next 5 days Prescription sent to [facility] pharmacy in [place]. Please return for new or worsening symptoms increasing chest pain or shortness of breath, passing out, new weakness, numbness, loss of sensation or other new or concerning changes. Prescriptions: New prednisone 20 mg tablet 40 mg PO DAILY Qty: 10 0RF No Action Premarin 0.625 mg Tablet 0.625 mg PO DAILY lisinopril 20 mg Tablet 20 mg PO DAILY atenolol 50 mg Tablet 50 mg DAILY clopidogrel [Plavix] 75 mg Tablet 75 mg PO DAILY atorvastatin 80 mg Tablet 80 mg PO DAILY metformin 500 mg Tablet 500 mg PO BID insulin glargine 100 unit/mL Cartridge 25 unit SUBCUT DAILY timolol 0.25 % Drops 1 drp EYE-RIGHT BID latanoprost 0.005 % Drops 1 drp EYE-RIGHT BEDTIME brimonidine 0.15 % Drops 1 drp EYE-RIGHT BID Referrals: Filipe Soni MD [Primary Care Provider] - Visit Report Forms: Patient Portal/API
--- NOTE | 2021-12-22 01:56 | DI.MRI.S_ITS ---
PROCEDURE: MR HEAD/BRAIN WO CON INDICATIONS: possible stroke TECHNIQUE: Non-contrast axial T1 spin echo, axial T2 fast spin echo, sagittal and axial FLAIR, coronal T2 fast spin echo, axial gradient echo, axial diffusion and ADC through the brain. COMPARISON: [facility], [place], MRI ANGIOGRAM NECK, 08/24/2005, 14:25. [facility], CT, CT ANGIO HEAD AND NECK, 12/21/2021, 23:48. FINDINGS: Image quality: Excellent. CSF spaces: Ventricles appear symmetric in size and shape. Basal cisterns are patent. No extra-axial fluid collections. Brain: No intracranial bleeds or mass effects. There is cerebral volume loss for age. There are mild periventricular and deep white matter chronic small vessel ischemic changes. Brainstem appears normal. Diffusion-weighted images show no acute ischemic insults. No chronic ischemic insults. Normal intravascular flow voids are present. Skull and face: Calvarial bone marrow is normal in signal. Orbits are normal. Sinuses: Sinuses and mastoids are clear. IMPRESSION: 1. No acute intracranial abnormalities. 2. Cerebral volume loss and chronic microvascular ischemic changes. Dictated by: Lavelle Moore M.D. on 12/22/2021 at 10:02 Approved by: Lavelle Moore M.D. on 12/22/2021 at 10:04
[2021-12-22] MEDS: CLOPIDOGREL 75 MG TABLET PO (08:09)
[2021-12-22] MEDS: atenoloL 50 MG TABLET PO (08:09)
[2021-12-22] MEDS: ALPRAZolam 0.5 MG TABLET PO (08:09)
[2021-12-22] MEDS: lisinopriL 20 MG TABLET PO (08:10)
== END 2021-12-22 11:14 | disposition home or self-care (01) ==
PROVIDERS: Emergency Medicine; Emergency Provider Emergency Medicine; PCP Internal Medicine
DX: J44.9 Chronic obstructive pulmonary disease, unspecified (principal); R20.2 Paresthesia of skin; Z79.01 Long term (current) use of anticoagulants; Z79.899 Other long term (current) drug therapy; Z86.16 Personal history of COVID-19
CPT/HCPCS: 36415; 70496; 70498; 70551; 71046; 80053; 82550; 82553; 83605; 83880; 84484; 85025; 93005; 99284; J1200; J2930; Q9967

== ENCOUNTER 2022-03-02 07:47 | Emergency (ER) | payer MEDICARE, OTHER, SELFPAY ==
[2021-11-15 16:33] VITALS: BMI 28.3
[2022-03-02 07:55] VITALS: BP 184/77; PULSE 94; RESP 16; TEMP 36.5; O2SAT 95; BMI 26.6
--- NOTE | 2022-03-02 08:06 | DI.RAD.S_ITS ---
PROCEDURE: XR CHEST 1V INDICATIONS: stroke TECHNIQUE: One view of the chest was acquired. COMPARISON: [facility], CR, XR CHEST 2V, 12/21/2021, 23:52. FINDINGS: Surgical changes and devices: None. Lungs and pleura: Lungs are clear. No pleural effusions or pneumothorax. Mediastinum: Mediastinal contours appear normal. Heart size is normal. Bones and chest wall: No suspicious bony lesions. Overlying soft tissues appear unremarkable. IMPRESSION: No acute process. Dictated by: Martin Ramachandran M.D. on 03/02/2022 at 8:20 Approved by: Martin Ramachandran M.D. on 03/02/2022 at 8:20
[2022-03-02 08:29] LABS: Add Manual Diff / Slide Review NO; Basophils Absolute Auto 100 /uL (0-100); Basophils Percent Auto 0.9 % (0-2); Eosinophils Absolute Auto 200 /uL (0-450); Eosinophils Percent Auto 1.7 % (2-4); Hemoglobin 13.6 g/dL (12.0-16.0); Lymphocytes Absolute Auto 1800 /uL (1100-4500); Lymphocytes Percent Auto 19.5 % (25-40); Mean Corpuscular HGB Conc 33.2 % (30-36); Mean Corpuscular Hemoglobin 30.9 PG (26-34); Mean Corpuscular Volume 93.1 fL (80-100); Monocytes Absolute Auto 800 /uL (0-900); Monocytes Percent Auto 8.1 % (3-14); Neutrophils Absolute Auto 6600 /uL (1500-7000); Neutrophils Percent Auto 69.8 % (50-75); Platelet Count 312 X10^3/uL (150-400); Red Blood Cell Count 4.41 X10^6/uL (4.0-5.2); Red Cell Distribution Width 13.6 % (11.6-14.8); White Blood Cell Count 9.4 X10^3/uL (4.5-11.0)
[2022-03-02 08:37] LABS: Alanine Aminotransferase 16 IU/L (<35); Alkaline Phosphatase 73 U/L (38-126); Aspartate Aminotransferase 23 IU/L (14-36); BUN Creatinine Ratio 21.2 (6-22); Bilirubin Total 0.5 mg/dL (0.2-1.3); Blood Urea Nitrogen 11 mg/dL (7-17); Calcium 8.7 mg/dL (8.4-10.2); Carbon Dioxide 30 mmol/L (22-32); Chloride 100 mmol/L (98-107); Creatine Kinase 35 U/L (30-135); Estimated Glomerular Filt Rate > 60 mL/min (>60); Glucose 154 mg/dL (80-110); Lipase 98 U/L (23-300); Potassium 4.4 mmol/L (3.4-5.1); Sodium 137 mmol/L (137-145); Total Protein 7.2 g/dL (6.3-8.2)
--- NOTE | 2022-03-02 08:40 | DI.CT.S_ITS ---
PROCEDURE: CT ANGIO HEAD AND NECK INDICATIONS: right hand weakness now resolved TECHNIQUE: Pre-contrast 4.5 mm thick sections acquired from the foramen magnum to the vertex. After the administration of intravenous contrast, 1 mm thick sections acquired from the aortic arch through the [place]. Post-contrast 4.5 mm thick sections then re-acquired from the foramen magnum to the vertex. 3-dimensional duhnzuh-igoidffoj-ayupkyirwh (MIP) and/or volume rendering reformats were acquired of the central intracranial vasculature and neck separately. For radiation dose reduction, the following was used: automated exposure control, adjustment of mA and/or kV according to patient size. COMPARISON: [facility], MR, MR HEAD/BRAIN WO CON, 12/22/2021, 9:16. [facility], CT, CT ANGIO HEAD AND NECK, 12/21/2021, 23:48. FINDINGS: Image quality: Excellent. BRAIN: The ventricular system and cortical sulci demonstrate atrophy, consistent for the patient's stated age. There are areas of hypodensity within the periventricular and subcortical white matter. There is no acute intra-or extra axial fluid collection. No acute hemorrhage, mass lesion or midline shift. Brainstem is unremarkable. Globes are symmetrical. Sinuses are aerated. Osseous structures are intact. HEAD CT ANGIOGRAPHY: Anterior circulation: Intracranial internal carotid arteries are normal in size and flow. The flow within the paired anterior cerebral arteries is normal and symmetric. The flow within the middle cerebral arteries is normal and symmetric. The anterior communicating artery is seen. No aneurysms are seen. Posterior circulation: Visualized portions of the vertebral arteries demonstrate normal caliber, and join to form a normal appearing basilar artery. Flow within the posterior cerebral arteries is normal and symmetric. No aneurysms are seen. NECK CT ANGIOGRAPHY: The origins of the right common and left and right external carotid arteries demonstrate no areas of hemodynamically significant stenosis, vascular occlusion or aneurysmal dilation. There is 2.2 cm segment of calcified proximal internal carotid with diffuse 50-60% stenosis. There is high grade stenosis at the origin of the right internal carotid artery, greater than 90%. There is a second area of prominent calcification approximately 1.4 cm from the origin measuring 60%. Origins of the left and right vertebral arteries demonstrate no areas of hemodynamically significant stenosis, vascular occlusion or aneurysmal dilation. There is approximately 30-40% narrowing in the proximal left subclavian artery. There is approximately 50% stenosis with calcification at the proximal left common carotid artery. Limited, visualized portions of the subclavian vasculature are unremarkable. IMPRESSION: 1. No acute intracranial process. 2. Mild to moderate atrophy and chronic microvascular ischemic changes. 3. High-grade stenosis at the origin of the right internal carotid artery secondary to calcifications. 4. 30-40% narrowing secondary to calcifications of the proximal left subclavian artery. 5. Approximate 50% stenosis at the proximal left common carotid artery. Any quantitative measurements of stenosis were performed using NASCET criteria. Dictated by: Mikayla Hanson M.D. on 03/02/2022 at 9:58 Approved by: Mikayla Hanson M.D. on 03/02/2022 at 10:43
[2022-03-02 08:49] LABS: Troponin I 0.013 ng/mL (0.01-0.034)
[2022-03-02] MEDS: SODIUM CHLORIDE 0.9% 1,000 ML 150 ML IV (09:10)
--- NOTE | 2022-03-02 09:42 | ED.NEUROSD ---
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 She says she woke up around 4:00 a.m. felt like her right hand was numb she had some difficulty holding things. She thought her glucose was low she had some peanut butter toast and then checked her glucose it was 71. She still did not feel quite right and so her brought her to the emergency department for evaluation. She reports that her hand now feels better. Glucoses over 100. She denies any chest pain palpitations shortness of breath. No further visual loss. She does report that she is having some numbness in her lips but no difficulty speaking or facial droop. She has not been ill. She says typically when she is hypoglycemic she gets really sweaty and nauseous. Today was slightly different. Related Data Home Medications Medication Instructions Recorded Confirmed atenolol 50 mg tablet 50 mg DAILY 11/15/21 11/15/21 atorvastatin 80 mg tablet 80 mg PO DAILY 11/15/21 11/15/21 brimonidine 0.15 % eye drops 1 drp EYE-RIGHT BID 11/15/21 11/15/21 clopidogrel 75 mg tablet (Plavix) 75 mg PO DAILY 11/15/21 11/15/21 conjugated estrogens 0.625 mg 0.625 mg PO DAILY 11/15/21 11/15/21 tablet (Premarin) insulin glargine 100 unit/mL 25 unit SUBCUT DAILY 11/15/21 11/15/21 subcutaneous cartridge latanoprost 0.005 % eye drops 1 drp EYE-RIGHT BEDTIME 11/15/21 11/15/21 lisinopril 20 mg tablet 20 mg PO DAILY 11/15/21 11/15/21 metformin 500 mg tablet 500 mg PO BID 11/15/21 11/15/21 timolol 0.25 % eye drops 1 drp EYE-RIGHT BID 11/15/21 11/15/21 Previous Rx's Medication Instructions Recorded prednisone 20 mg tablet 40 mg PO DAILY #10 tabs 12/22/21 Allergies Allergy/AdvReac Type Severity Reaction Status Date / Time codeine [CODEINE] Allergy Unknown Verified 03/02/22 08:00 shellfish derived Allergy Unknown Verified 03/02/22 08:00 [SHELLFISH DERIVED] Review of Systems Review of Systems ROS Unobtainable: All systems reviewed & are unremarkable except as noted in HPI and below Patient History Social History household members: spouse Smoking Status: Former smoker Smoking Status: Former smoker alcohol intake frequency: holidays/special occasions only Substance Use Type: does not use Exam Initial Vital Signs Initial Vital Signs: Vital Signs Temperature 97.7 F 03/02/22 07:55 Pulse Rate 94 H 03/02/22 07:55 Respiratory Rate 16 03/02/22 07:55 Blood Pressure 184/77 H 03/02/22 07:55 Pulse Oximetry 95 03/02/22 07:55 Oxygen Delivery Method 03/02/22 07:55 GENERAL: Alert pleasant 76-year-old female and in no acute distress. HEENT: Head atraumatic,EOMI, pupils reactive, face symmetric, moist mucous membranes CARDIOVASCULAR: Regular rate and rhythm without murmurs, rubs or gallops. RESPIRATORY: Breath sounds equal bilaterally, no wheezes rales or rhonchi. ABDOMEN: Soft, nontender. Normoactive bowel sounds all 4 quadrants. No guarding or rebound. EXTREMITIES: Normal range of motion, no clubbing or edema. Neurovascularly intact NEUROLOGICAL: Alert and oriented x4.Normal gait and speech. Cranial nerves II through XII grossly intact. Good jdivll-ko-fboh, good dhxm-js-hgzp, strength equal bilaterally, no dysarthria or aphasia, sensation in tact to soft touch bilaterally, no visual changes, no facial droop SKIN: Warm, dry, no laceration, no petechiae, no rashes or lesions. Scores NIH Stroke Scale Level of Conciousness: Alert, keenly responsive Ask month/age: Answers both questions correctly. Open/close eyes, close hand: Performs both tasks correctly Best gaze horizontal: Normal Visual [place]: No visual loss Facial palsy: Normal symetrical movement Left arm drift: No drift for full 10 sec Right arm drift: No drift for full 10 sec Left leg drift: No drift for full 5 sec Right leg drift: No drift for full 5 sec Limb ataxia: Absent Sensory on face/arms/legs: Normal, no sensory loss Best language: No aphasia, normal Dysarthria: Normal Extinction or inattention: No abnormality Total NIH Stroke scale score: 0 Course Orders Ordered: Discontinued Medications Sodium Chloride (Normal Saline 0.9%) 1,000 mls @ 150 mls/hr IV CONT KIMBERLY Last Infusion: 03/02/22 13:26 Dose: 0 mls/hr Documented By: Admin: 03/02/22 09:10 Dose: 150 mls/hr Documented By: SB Lorazepam (Lorazepam 2 Mg/Ml Inj) 0.5 mg IV NOW ONE Stop: 03/02/22 10:11 Last Admin: 03/02/22 10:19 Dose: 0.5 mg Documented By: SB Vital Signs Vital signs: Vital Signs - 8 hr 03/02/22 13:33 Pulse Rate 69 Respiratory Rate 18 Blood Pressure 162/71 H Pulse Oximetry 99 Oxygen Delivery Method Room Air MDM - Neuro Symptoms/Deficit Lab Data Result diagrams: 03/02/22 08:03 03/02/22 08:03 Labs: Lab Results 03/02/22 03/02/22 Range/Units 08:03 08:03 WBC 9.4 (4.5-11.0) X10^3/uL RBC 4.41 (4.0-5.2) X10^6/uL Hgb 13.6 (12.0-16.0) g/dL Hct 41.0 (36-46) % MCV 93.1 (80-100) fL MCH 30.9 (26-34) PG MCHC 33.2 (30-36) % RDW 13.6 (11.6-14.8) % Plt Count 312 (150-400) X10^3/uL Neut % (Auto) 69.8 (50-75) % Lymph % (Auto) 19.5 L (25-40) % Kay % (Auto) 8.1 (3-14) % Eos % (Auto) 1.7 L (2-4) % Baso % (Auto) 0.9 (0-2) % Neut # (Auto) 6600 (9413-4870) /uL Lymph # (Auto) 1800 (0849-1471) /uL Kay # (Auto) 800 (0-900) /uL Eos # (Auto) 200 (0-450) /uL Baso # (Auto) 100 (0-100) /uL Sodium 137 (137-145) mmol/L Potassium 4.4 (3.4-5.1) mmol/L Chloride 100 (98-107) mmol/L Carbon Dioxide 30 (22-32) mmol/L BUN 11 (7-17) mg/dL Creatinine 0.52 (0.52-1.04) mg/dL Estimated GFR > 60 (>60) mL/min BUN/Creatinine Ratio 21.2 (6-22) Glucose 154 H (80-110) mg/dL Calcium 8.7 (8.4-10.2) mg/dL Total Bilirubin 0.5 (0.2-1.3) mg/dL AST 23 (14-36) IU/L ALT 16 (<35) IU/L Alkaline Phosphatase 73 (38-126) U/L Total Creatine Kinase 35 (30-135) U/L CK-MB (CK-2) TNP CK-MB (CK-2) Rel Index TNP Troponin I 0.013 (0.01-0.034) ng/mL Total Protein 7.2 (6.3-8.2) g/dL Lipase 98 (23-300) U/L Imaging Data Chest x-ray: Radiologist's Impression: ?Sarahi Gentile MR#: [id number] : 1945 Acct:[id number] Age/Sex: 76 / F Date of Service: 03/02/22 Loc: ED Accession Number: [id number] ?? Procedure: XR chest 1V Ordering Provider: Tracy Myles D.O. PROCEDURE:? XR CHEST 1V ? INDICATIONS:? stroke ? TECHNIQUE:? One view of the chest was acquired.? ? COMPARISON:? [facility], , XR CHEST 2V, 12/21/2021, 23:52. ? FINDINGS:? ? Surgical changes and devices:? None.? ? Lungs and pleura:? Lungs are clear.? No pleural effusions or pneumothorax.? ? Mediastinum:? Mediastinal contours appear normal.? Heart size is normal.? ? Bones and chest wall:? No suspicious bony lesions.? Overlying soft tissues appear unremarkable.? ? IMPRESSION:? No acute process. ? ? Dictated by: Martin Ramachandran M.D. on 03/02/2022 at 8:20 ? ? CTA - brain/neck: Radiologist's Impression: CT Scan Report Signed Patient: Sarahi Gentile MR#: [id number] : 1945 Acct:[id number] Age/Sex: 76 / F Date of Service: 03/02/22 Loc: ED Accession Number: [id number] ?? Procedure: CT angio head and neck Ordering Provider: Tracy Myles D.O. PROCEDURE:? CT ANGIO HEAD AND NECK ? INDICATIONS:? right hand weakness now resolved ? TECHNIQUE:? Pre-contrast 4.5 mm thick sections acquired from the foramen magnum to the vertex.? After the administration of intravenous contrast, 1 mm thick sections acquired from the aortic arch through the [place] of [place].? Post-contrast 4.5 mm thick sections then re-acquired from the foramen magnum to the vertex.? 3-dimensional hybxqdp-emqnarfox-fozrpwddfk (MIP) and/or volume rendering reformats were acquired of the central intracranial vasculature and neck separately. For radiation dose reduction, the following was used:? automated exposure control, adjustment of mA and/or kV according to patient size.? ? COMPARISON:? [facility], MR, MR HEAD/BRAIN WO CON, 12/22/2021, 9:16.? [facility], CT, CT ANGIO HEAD AND NECK, 12/21/2021, 23:48. ? FINDINGS:? Image quality:? Excellent.? ? BRAIN:? The ventricular system and cortical sulci demonstrate atrophy, consistent for the patient's stated age. There are areas of hypodensity within the periventricular and subcortical white matter.? There is no acute intra-or extra axial fluid collection. No acute hemorrhage, mass lesion or midline shift. Brainstem is unremarkable. Globes are symmetrical. Sinuses are aerated. Osseous structures are intact. ? HEAD CT ANGIOGRAPHY:? Anterior circulation:? Intracranial internal carotid arteries are normal in size and flow.? The flow within the paired anterior cerebral arteries is normal and symmetric.? The flow within the middle cerebral arteries is normal and symmetric.? The anterior communicating artery is seen.? No aneurysms are seen.? ? Posterior circulation:? Visualized portions of the vertebral arteries demonstrate normal caliber, and join to form a normal appearing basilar artery.? Flow within the posterior cerebral arteries is normal and symmetric.? No aneurysms are seen.? ? NECK CT ANGIOGRAPHY:? The origins of the right common and left and right external carotid arteries demonstrate no areas of hemodynamically significant stenosis, vascular occlusion or aneurysmal dilation. There is 2.2 cm segment of calcified proximal internal carotid? with diffuse 50-60% stenosis. There is high grade stenosis at the origin of the right internal carotid artery, greater than 90%.? There is a second area of prominent calcification approximately 1.4 cm from the origin measuring 60%. Origins of the left and right vertebral arteries demonstrate no areas of hemodynamically significant stenosis, vascular occlusion or aneurysmal dilation. There is approximately 30-40% narrowing in the proximal left subclavian artery. There is approximately 50% stenosis with calcification at the proximal left common carotid artery. Limited, visualized portions of the subclavian vasculature are unremarkable. ? ? IMPRESSION:? ? 1. No acute intracranial process. ? 2. Mild to moderate atrophy and chronic microvascular ischemic changes. ? 3. High-grade stenosis at the origin of the right internal carotid artery secondary to calcifications. ? 4. 30-40% narrowing secondary to calcifications of the proximal left subclavian artery. ? 5. Approximate 50% stenosis at the proximal left common carotid artery. ? Any quantitative measurements of stenosis were performed using NASCET criteria.? ? ? Dictated by: Mikayla Hanson M.D. on 03/02/2022 at 9:58 ? ? MR brain: Radiologist's Impression: Signed Patient: Sarahi Gentile MR#: [id number] : 1945 Acct:[id number] Age/Sex: 76 / F Date of Service: 03/02/22 Loc: ED Accession Number: [id number] ?? Procedure: MR head/brain wo con Ordering Provider: Tracy Myles D.O. PROCEDURE:? MR HEAD/BRAIN WO CON ? INDICATIONS:? right hand weakness ? TECHNIQUE:? Non-contrast axial T1 spin echo, axial T2 fast spin echo, sagittal and axial FLAIR, coronal T2 fast spin echo, axial gradient echo, axial diffusion and ADC through the brain.? ? COMPARISON:? [facility], , MR HEAD/BRAIN WO CON, 12/22/2021, 9:16. ? FINDINGS:? Image quality:? Degraded by motion artifact. ? CSF spaces:? Ventricles appear symmetric in size and shape.? Basal cisterns are patent.? No extra-axial fluid collections.? ? Brain:? No intracranial bleeds or mass effects.? There is cerebral volume loss for age.? There are periventricular and deep white matter chronic small vessel ischemic changes.? Brainstem appears normal.? Diffusion-weighted images show no acute ischemic insults.? No chronic ischemic insults.? Normal intravascular flow voids are present.? ? Skull and face:? Calvarial bone marrow is normal in signal.? Orbits are normal.? ? Sinuses:? Sinuses and mastoids are clear.? ? IMPRESSION:? 1. No acute process.? No recent infarct. 2. Volume loss and small vessel ischemic disease.? ? ? Dictated by: Martin Ramachandran M.D. on 03/02/2022 at 11:03 ? ? ECG Data Interpretation: Normal sinus rhythm rate 66 ND interval 190 QRS [address] changes no T-wave inversions PVC noted MDM Narrative Medical decision making narrative: Patient is a 76-year-old female history of insulin-dependent diabetes previous stroke presents today with right hand numbness and tingling with an episode of hypoglycemia. She reports that the numbness and weakness lasted for just a couple of minutes. She ate toast and peanut butter but still did not feel quite right. Workup here in the emergency department included head CT CT angio and MRI none of which showed to be stroke. It is possible that she had a TIA however with a hypoglycemic episode I suspect that symptoms are more related to that. No sign of infection. Electrolytes troponin and other workup is negative. [] Multiple etiologies for patient's symptoms considered including, but not limited to: CVA hypoglycemia TIA, sepsis Prior Charts reviewed: Labs reviewed and interpreted by myself: Glucose 154- troponin electrolytes and CBC are within normal limits no significant leukocytosis Imaging reviewed: CT angio MRI head chest x-ray Consultations: None Patient's symptoms improved over duration of stay with above-stated therapies. I discussed with patient to decrease her Lantus. She was taking 20 units at night hour I recommend she decrease it to about 15-20 units tonight. Findings and discharge diagnosis discussed with patient/family followed by verbalization of understanding Return precautions discussed with patient/family whom verbalize understanding of diagnosis and plan Discharge Plan Departure Patient Disposition: Home Clinical Impression: Hypoglycemia, Brain TIA Instructions: DI for Transient Ischemic Attack, DI for Hypoglycemia Activity Restrictions/Additional Instructions: *You have been diagnosed with hypoglycemia, TIA *What to do: At this time I symptoms were related to low glucose today. You had a full workup in the emergency department it is still possible that you had a small mini stroke *Continue to take medications as directed Please continue Plavix as prescribed along with all other medication *Follow up with your primary care provider in 2-3 days or call [phone] *Return to ER if you should have increasing weakness numbness tingling chest pain palpitations or any new, worsening or concerning symptoms Prescriptions: No Action Premarin 0.625 mg Tablet 0.625 mg PO DAILY lisinopril 20 mg Tablet 20 mg PO DAILY atenolol 50 mg Tablet 50 mg DAILY clopidogrel [Plavix] 75 mg Tablet 75 mg PO DAILY atorvastatin 80 mg Tablet 80 mg PO DAILY metformin 500 mg Tablet 500 mg PO BID insulin glargine 100 unit/mL Cartridge 25 unit SUBCUT DAILY timolol 0.25 % Drops 1 drp EYE-RIGHT BID latanoprost 0.005 % Drops 1 drp EYE-RIGHT BEDTIME brimonidine 0.15 % Drops 1 drp EYE-RIGHT BID prednisone 20 mg tablet 40 mg PO DAILY Qty: 10 0RF Referrals: Filipe Soni MD [Primary Care Provider] - Stand Alone Forms: Patient Portal/API
[2022-03-02 09:57] VITALS: BP 166/72; PULSE 63; O2SAT 97
--- NOTE | 2022-03-02 09:58 | DI.MRI.S_ITS ---
PROCEDURE: MR HEAD/BRAIN WO CON INDICATIONS: right hand weakness TECHNIQUE: Non-contrast axial T1 spin echo, axial T2 fast spin echo, sagittal and axial FLAIR, coronal T2 fast spin echo, axial gradient echo, axial diffusion and ADC through the brain. COMPARISON: [facility], , MR HEAD/BRAIN WO CON, 12/22/2021, 9:16. FINDINGS: Image quality: Degraded by motion artifact. CSF spaces: Ventricles appear symmetric in size and shape. Basal cisterns are patent. No extra-axial fluid collections. Brain: No intracranial bleeds or mass effects. There is cerebral volume loss for age. There are periventricular and deep white matter chronic small vessel ischemic changes. Brainstem appears normal. Diffusion-weighted images show no acute ischemic insults. No chronic ischemic insults. Normal intravascular flow voids are present. Skull and face: Calvarial bone marrow is normal in signal. Orbits are normal. Sinuses: Sinuses and mastoids are clear. IMPRESSION: 1. No acute process. No recent infarct. 2. Volume loss and small vessel ischemic disease. Dictated by: Martin Ramachandran M.D. on 03/02/2022 at 11:03 Approved by: Martin Ramachandran M.D. on 03/02/2022 at 11:04
[2022-03-02 10:00] VITALS: PULSE 67; O2SAT 95
[2022-03-02] MEDS: LORazepam 2 MG/ML INJ 0.5 MG IV (10:19)
[2022-03-02 11:30] VITALS: BP 148/64; PULSE 62; RESP 18
[2022-03-02 13:33] VITALS: BP 162/71; PULSE 69; RESP 18; O2SAT 99
[2022-03-03 17:02] LABS: Albumin 3.9 g/dL (3.5-5.0); Albumin Globulin Ratio 1.2 (1.0-2.8); Globulin 3.3 g/dL (1.7-4.1); HEMOLYSIS 36 (0-50)
== END 2022-03-02 13:34 | disposition home or self-care (01) ==
PROVIDERS: Emergency Provider Emergency Medicine; PCP Internal Medicine
DX: E11.649 Type 2 diabetes mellitus with hypoglycemia without coma (principal); G45.9 Transient cerebral ischemic attack, unspecified; Z79.899 Other long term (current) drug therapy
CPT/HCPCS: 36415; 70496; 70498; 70551; 71045; 80053; 82550; 83690; 84484; 85025; 93005; 96361; 96374; 99285; J2060

== ENCOUNTER 2022-03-24 06:15 | Emergency (ER) | payer MEDICARE, OTHER, SELFPAY ==
[2021-11-15 16:33] VITALS: BMI 28.3
[2022-03-24] VITALS (16 sets, daily range): BP systolic 140–199; BP diastolic 62–81; PULSE 59–79; RESP 15–30; TEMP 36.4; O2SAT 92–96; BMI 26.6
--- NOTE | 2022-03-24 06:26 | ED.NAVMDI ---
HPI - Nausea/Vomiting/Diarrhea <Tracy Jersonelizabeth, DO - Last Filed: 03/24/22 18:35> General Chief complaint: Nausea/Vomiting/Diarrhea Stated complaint: doesn't feel well, headache, stomach pain Time Seen by Provider: 03/24/22 06:26 History of Present Illness HPI Narrative: Patient is 76-year-old female history of CVA with right visual deficits insulin-dependent diabetes hypertension, COPD presenting today with headache. She reports that it came on gradually last evening starting around 9:00 p.m.. It got significantly worse this morning. She feels nauseous she feels like she is off-balance. She is noted to be quite hypertensive she has not taken anything for pain or her morning blood pressure meds. She has no chest pain or shortness of breath. She is able to walk but just generally feels weak. She denies any fever. She reports that she was feeling her normal self yesterday. She has no vomiting no numbness tingling or weakness no significant shortness of breath no palpitations Related Data Home Medications Medication Instructions Recorded Confirmed atenolol 50 mg tablet 50 mg DAILY 11/15/21 11/15/21 atorvastatin 80 mg tablet 80 mg PO DAILY 11/15/21 11/15/21 brimonidine 0.15 % eye drops 1 drp EYE-RIGHT BID 11/15/21 11/15/21 clopidogrel 75 mg tablet (Plavix) 75 mg PO DAILY 11/15/21 11/15/21 conjugated estrogens 0.625 mg 0.625 mg PO DAILY 11/15/21 11/15/21 tablet (Premarin) insulin glargine 100 unit/mL 25 unit SUBCUT DAILY 11/15/21 11/15/21 subcutaneous cartridge latanoprost 0.005 % eye drops 1 drp EYE-RIGHT BEDTIME 11/15/21 11/15/21 lisinopril 20 mg tablet 20 mg PO DAILY 11/15/21 11/15/21 metformin 500 mg tablet 500 mg PO BID 11/15/21 11/15/21 timolol 0.25 % eye drops 1 drp EYE-RIGHT BID 11/15/21 11/15/21 Previous Rx's Medication Instructions Recorded prednisone 20 mg tablet 40 mg PO DAILY #10 tabs 12/22/21 acetaminophen 500 mg oral powder 500 mg PO QID PRN pain #32 ea 03/24/22 packet (Tylenol Extra Strength) ondansetron 4 mg disintegrating 4 mg PO Q6H PRN nausea and 03/24/22 tablet vomiting #10 tabs Allergies Allergy/AdvReac Type Severity Reaction Status Date / Time codeine [CODEINE] Allergy Unknown Verified 03/02/22 08:00 shellfish derived Allergy Unknown Verified 03/02/22 08:00 [SHELLFISH DERIVED] Review of Systems <Tracy Myles DO - Last Filed: 03/24/22 18:35> Review of Systems ROS Unobtainable: All systems reviewed & are unremarkable except as noted in HPI and below Patient History <Tracy Myles DO - Last Filed: 03/24/22 18:35> Social History household members: spouse Smoking Status: Former smoker Smoking Status: Former smoker alcohol intake frequency: holidays/special occasions only Substance Use Type: does not use Exam <DO Orly Bates Last Filed: 03/24/22 18:35> Initial Vital Signs Initial Vital Signs: Vital Signs Pulse Rate 77 03/24/22 06:23 Respiratory Rate 22 03/24/22 06:23 Pulse Oximetry 95 03/24/22 06:23 GENERAL: Alert pleasant 76-year-old female and in no acute distress. HEENT: Head atraumatic,EOMI, pupils reactive, face symmetric, moist mucous membranes, neck is supple CARDIOVASCULAR: Regular rate and rhythm without murmurs, rubs or gallops. RESPIRATORY: Breath sounds equal bilaterally, no wheezes rales or rhonchi. ABDOMEN: Soft, nontender. Normoactive bowel sounds all 4 quadrants. No guarding or rebound. EXTREMITIES: Normal range of motion, no clubbing or edema. Neurovascularly intact NEUROLOGICAL: Alert and oriented x4.Normal gait and speech. Cranial nerves II through XII grossly intact. Good [id number], good [id number], strength equal bilaterally, no dysarthria or aphasia, sensation in tact to soft touch bilaterally, no visual changes, no facial droop SKIN: Warm, dry, no laceration, no petechiae, no rashes or lesions. <Sapphire Chambers DO - Last Filed: 03/24/22 18:34> Initial Vital Signs Initial Vital Signs: Vital Signs Pulse Rate 77 03/24/22 06:23 Respiratory Rate 22 03/24/22 06:23 Pulse Oximetry 95 03/24/22 06:23 Scores <Tracy Myles, DO - Last Filed: 03/24/22 18:35> NIH Stroke Scale Total NIH Stroke scale score: 2 <Sapphire Ulises Chambers, DO - Last Filed: 03/24/22 18:34> NIH Stroke Scale Level of Conciousness: Alert, keenly responsive Ask month/age: Answers both questions correctly. Open/close eyes, close hand: Performs both tasks correctly Best gaze horizontal: Normal Visual m[place]leton: Partial hemianopia (right present, not new) Facial palsy: Normal symetrical movement Left arm drift: No drift for full 10 sec Right arm drift: Drifts down, not to bed (not new according to patient and family) Left leg drift: No drift for full 5 sec Right leg drift: No drift for full 5 sec Limb ataxia: Absent Sensory on face/arms/legs: Normal, no sensory loss Best language: No aphasia, normal Dysarthria: Normal Extinction or inattention: No abnormality Total NIH Stroke scale score: 2 Course <Tracy Myles, DO - Last Filed: 03/24/22 18:35> Orders Ordered: Discontinued Medications Sodium Chloride (Normal Saline 0.9%) 1,000 mls @ 1,000 mls/hr IV CONT KIMBERLY Last Infusion: 03/24/22 08:45 Dose: 0 mls/hr Documented By: Admin: 03/24/22 06:46 Dose: 1,000 mls/hr Documented By: PELON Ketorolac Tromethamine (Ketorolac 30 Mg/Ml Vial) 15 mg IV NOW ONE Stop: 03/24/22 09:02 Last Admin: 03/24/22 09:27 Dose: 15 mg Documented By: YU Metoclopramide HCl (Metoclopramide 10 Mg/2 Ml Inj) 5 mg IV NOW ONE Stop: 03/24/22 09:02 Last Admin: 03/24/22 09:28 Dose: 5 mg Documented By: YU Ondansetron HCl (Ondansetron 4 Mg/2 Ml Inj) 4 mg IV NOW ONE Stop: 03/24/22 06:35 Last Admin: 03/24/22 06:46 Dose: 4 mg Documented By: PELON Oxycodone HCl (Oxycodone 5 Mg/5 Ml Oral Solution) 5 mg PO NOW ONE Stop: 03/24/22 10:22 Last Admin: 03/24/22 10:46 Dose: 5 mg Documented By: YU Vital Signs Vital signs: Vital Signs - 8 hr 03/24/22 06:26 03/24/22 06:23 03/24/22 06:30 Temperature 97.6 F Pulse Rate 79 77 Respiratory Rate 15 22 Blood Pressure 195/79 H 189/81 H Pulse Oximetry 94 95 Oxygen Delivery Method Room Air 03/24/22 06:30 03/24/22 07:05 03/24/22 07:05 Temperature Pulse Rate 76 70 Respiratory Rate Blood Pressure 199/76 H Pulse Oximetry 96 Oxygen Delivery Method 03/24/22 07:30 03/24/22 07:34 03/24/22 07:34 Temperature Pulse Rate 67 68 Respiratory Rate 25 H Blood Pressure 174/73 H Pulse Oximetry 95 96 Oxygen Delivery Method Room Air <Sapphire Chambers DO - Last Filed: 03/24/22 18:34> Orders Ordered: Discontinued Medications Sodium Chloride (Normal Saline 0.9%) 1,000 mls @ 1,000 mls/hr IV CONT KIMBERLY Last Infusion: 03/24/22 08:45 Dose: 0 mls/hr Documented By: Admin: 03/24/22 06:46 Dose: 1,000 mls/hr Documented By: PELON Ketorolac Tromethamine (Ketorolac 30 Mg/Ml Vial) 15 mg IV NOW ONE Stop: 03/24/22 09:02 Last Admin: 03/24/22 09:27 Dose: 15 mg Documented By: YU Metoclopramide HCl (Metoclopramide 10 Mg/2 Ml Inj) 5 mg IV NOW ONE Stop: 03/24/22 09:02 Last Admin: 03/24/22 09:28 Dose: 5 mg Documented By: YU Ondansetron HCl (Ondansetron 4 Mg/2 Ml Inj) 4 mg IV NOW ONE Stop: 03/24/22 06:35 Last Admin: 03/24/22 06:46 Dose: 4 mg Documented By: PELON Oxycodone HCl (Oxycodone 5 Mg/5 Ml Oral Solution) 5 mg PO NOW ONE Stop: 03/24/22 10:22 Last Admin: 03/24/22 10:46 Dose: 5 mg Documented By: YU Vital Signs Vital signs: Vital Signs - 8 hr 03/24/22 06:26 03/24/22 06:23 03/24/22 06:30 Temperature 97.6 F Pulse Rate 79 77 Respiratory Rate 15 22 Blood Pressure 195/79 H 189/81 H Pulse Oximetry 94 95 Oxygen Delivery Method Room Air 03/24/22 06:30 03/24/22 07:05 03/24/22 07:05 Temperature Pulse Rate 76 70 Respiratory Rate Blood Pressure 199/76 H Pulse Oximetry 96 Oxygen Delivery Method 03/24/22 07:30 03/24/22 07:34 03/24/22 07:34 Temperature Pulse Rate 67 68 Respiratory Rate 25 H Blood Pressure 174/73 H Pulse Oximetry 95 96 Oxygen Delivery Method Room Air MDM - Nausea/Vomiting/Diarrhea <Tracy Myles DO - Last Filed: 03/24/22 18:35> Lab Data 03/24/22 08:00 03/24/22 08:00 Labs: Lab Results 03/24/22 03/24/22 03/24/22 Range/Units 08:00 08:00 08:00 WBC 7.5 (4.5-11.0) X10^3/uL RBC 4.22 (4.0-5.2) X10^6/uL Hgb 12.6 (12.0-16.0) g/dL Hct 38.3 (36-46) % MCV 90.7 (80-100) fL MCH 30.0 (26-34) PG MCHC 33.0 (30-36) % RDW 13.4 (11.6-14.8) % Plt Count 291 (150-400) X10^3/uL Neut % (Auto) 67.8 (50-75) % Lymph % (Auto) 21.8 L (25-40) % Hernando % (Auto) 8.0 (3-14) % Eos % (Auto) 1.3 L (2-4) % Baso % (Auto) 1.1 (0-2) % Neut # (Auto) 5100 (5181-4434) /uL Lymph # (Auto) 1600 (5367-6102) /uL Hernando # (Auto) 600 (0-900) /uL Eos # (Auto) 100 (0-450) /uL Baso # (Auto) 100 (0-100) /uL PT 11.5 (10.1-12.7) SECONDS INR 1.0 (0.9-1.3) APTT 29 (26-36) SECONDS Sodium 135 L (137-145) mmol/L Potassium 4.4 (3.4-5.1) mmol/L Chloride 98 (98-107) mmol/L Carbon Dioxide 30 (22-32) mmol/L BUN 11 (7-17) mg/dL Creatinine 0.53 (0.52-1.04) mg/dL Estimated GFR > 60 (>60) mL/min BUN/Creatinine Ratio 20.8 (6-22) Glucose 141 H (80-110) mg/dL Calcium 8.3 L (8.4-10.2) mg/dL Total Bilirubin 0.3 (0.2-1.3) mg/dL AST 20 (14-36) IU/L ALT 16 (<35) IU/L Alkaline Phosphatase 59 (38-126) U/L Total Creatine Kinase 28 L (30-135) U/L CK-MB (CK-2) TNP CK-MB (CK-2) Rel Index TNP Troponin I < 0.012 (0.01-0.034) ng/mL Total Protein 6.7 (6.3-8.2) g/dL Albumin 3.7 (3.5-5.0) g/dL Globulin 3.0 (1.7-4.1) g/dL Albumin/Globulin Ratio 1.2 (1.0-2.8) Urine Dip Bedside Urine Glucose Negative Bedside Urine Bilirubin - Negative Bedside Urine Ketone - Negative Urine Specific Julian 1.030 Bedside Urine Occult Blood +/- Bedside Urine pH 6.0 Bedside Urine Protein +++ 300 Bedside Urine Urobilinogen - Negative Bedside Urine Nitrite - Negative Bedside Urine Leukocytes - Negative Esterase MDM Narrative Medical decision making narrative: Patient is 76-year-old female history of insulin-dependent diabetes CVA hyperlipidemia presenting today with a headache. She does not typically get headaches she is nauseous with hypertension as headache she initially sent to head CT wishes show any acute intracranial hemorrhage. She is neurologically intact. Awaiting blood work. Patient signed out to Dr. Chambers <Sapphire Chambers, - Last Filed: 03/24/22 18:34> Lab Data Labs: Lab Results 03/24/22 03/24/22 03/24/22 Range/Units 08:00 08:00 08:00 WBC 7.5 (4.5-11.0) X10^3/uL RBC 4.22 (4.0-5.2) X10^6/uL Hgb 12.6 (12.0-16.0) g/dL Hct 38.3 (36-46) % MCV 90.7 (80-100) fL MCH 30.0 (26-34) PG MCHC 33.0 (30-36) % RDW 13.4 (11.6-14.8) % Plt Count 291 (150-400) X10^3/uL Neut % (Auto) 67.8 (50-75) % Lymph % (Auto) 21.8 L (25-40) % Hernando % (Auto) 8.0 (3-14) % Eos % (Auto) 1.3 L (2-4) % Baso % (Auto) 1.1 (0-2) % Neut # (Auto) 5100 (3648-9508) /uL Lymph # (Auto) 1600 (4435-8005) /uL Hernando # (Auto) 600 (0-900) /uL Eos # (Auto) 100 (0-450) /uL Baso # (Auto) 100 (0-100) /uL PT 11.5 (10.1-12.7) SECONDS INR 1.0 (0.9-1.3) APTT 29 (26-36) SECONDS Sodium 135 L (137-145) mmol/L Potassium 4.4 (3.4-5.1) mmol/L Chloride 98 (98-107) mmol/L Carbon Dioxide 30 (22-32) mmol/L BUN 11 (7-17) mg/dL Creatinine 0.53 (0.52-1.04) mg/dL Estimated GFR > 60 (>60) mL/min BUN/Creatinine Ratio 20.8 (6-22) Glucose 141 H (80-110) mg/dL Calcium 8.3 L (8.4-10.2) mg/dL Total Bilirubin 0.3 (0.2-1.3) mg/dL AST 20 (14-36) IU/L ALT 16 (<35) IU/L Alkaline Phosphatase 59 (38-126) U/L Total Creatine Kinase 28 L (30-135) U/L CK-MB (CK-2) TNP CK-MB (CK-2) Rel Index TNP Troponin I < 0.012 (0.01-0.034) ng/mL Total Protein 6.7 (6.3-8.2) g/dL Albumin 3.7 (3.5-5.0) g/dL Globulin 3.0 (1.7-4.1) g/dL Albumin/Globulin Ratio 1.2 (1.0-2.8) Urine Dip Bedside Urine Glucose Negative Bedside Urine Bilirubin - Negative Bedside Urine Ketone - Negative Urine Specific Julian 1.030 Bedside Urine Occult Blood +/- Bedside Urine pH 6.0 Bedside Urine Protein +++ 300 Bedside Urine Urobilinogen - Negative Bedside Urine Nitrite - Negative Bedside Urine Leukocytes - Negative Esterase ECG Data Attestation: I personally reviewed and interpreted this ECG as follows: Interpretation: Sinus bradycardia rate of 59 WI 202 QRS of 104 and QTC 431. Patient has ST depression 2 3 AVF lateral leads this does not appear new compared to prior from 03/02/2022. MDM Narrative Medical decision making narrative: Patient is 76-year-old female history of insulin-dependent diabetes CVA hyperlipidemia presenting today with a headache. She does not typically get headaches she is nauseous with hypertension as headache she initially sent to head CT wishes show any acute intracranial hemorrhage. She is neurologically intact. Awaiting blood work. Patient signed out to Dr. Chambers 03/24/22 Reyes: Patient signed out to myself, patient seen independently evaluated. Patient's workup shows normal CBC, INR of 1, sodium 135 with a glucose of 141 normal renal function electrolytes, LFTs and troponin. EKG shows sinus bradycardia rate of 50 9p are 202 QRS of 104 and QTC of 431. No acute ST elevation or depression. Patient had a head CT ordered showed no acute intracranial changes. She would an MRI showed no acute process with no recent infarct on 03/02/[address] angio of the head and neck on that same date with no acute intracranial process, high-grade stenosis at the origin of the right ICA secondary to calcifications 30-40% narrowing secondary to calcification of the proximal left subclavian and approximately 50% stenosis of the proximal left common carotid. CTA December of 2021 did not show the high-grade stenosis of the right ICA. Patient presented last night with complaint of headache which was new for her states she does not frequently get headaches she has known right-sided visual deficits from prior stroke, diabetes hypertension dyslipidemia with what she reports as a gradual onset of headache starting about 9:00 a.m. last night some general nonfocal weakness and has had persistent trouble with swallowing since February. Patient's NIH on exam is 2. Patient's family states these are not new changes for her. They do not appreciate any new neurologic changes. Patient received fluids and Zofran. She was hypertensive 199 over 80s systolic initially slowly trending down words. Patient is 154 systolic when I am in the room. Patient has not had any new acute neurologic changes she notes she is been a little bit off balance she is had dysphagia or difficulty swallowing and she is following up with gastroenterology she is in process to be seen for an EGD. She states she started having gradual onset of headache last night she does not normally get headaches she denies fevers, chills, no sudden vision changes, no nasal congestion or upper respiratory symptoms. No chest pain or shortness of breath. She is had nausea but no active vomiting. She does note she gets nauseated intermittently when she tries to take her medication or eat more solid things. She states she is had some intermittent diarrhea/constipation. She denies dysuria urgency or frequency. Patient states she has not taken anything for her headache overnight. She denies any drug allergies. Dr. Soni is her primary care. She knows she is taking some of her medications the smaller ones but has been intermittent in the larger tablets. Her understanding issues supposed to have a swallow evaluation. Discharge Plan Departure Patient Disposition: Home Clinical Impression: Headache, Dysphagia Activity Restrictions/Additional Instructions: Follow-up with your physician to see if they can adjust your medications, please call the office. I hope your EGD is helpful to give you more answers. You can take Tylenol powder packet 1-2 packets every 6 hours as needed for headache or pain for adult dosing of 500mg or you can use Children's powdered Tylenol and you may take up to 650 mg every 6 hours. Can also take Zofran 1 tablet every 6 hours and allowed to dissolve under your tongue. Prescription to the [facility] pharmacy in [place] Please return for fevers worsening headache, vision changes, numbness, tingling or weakness, if your falling, having new or worsening chest pain shortness of breath, vomiting or diarrhea or other new or concerning changes. Prescriptions: New Tylenol Extra Strength 500 mg powder in packet 500 mg PO QID PRN (Reason: pain) Qty: 32 0RF ondansetron 4 mg tablet,disintegrating 4 mg PO Q6H PRN (Reason: nausea and vomiting) Qty: 10 0RF No Action Premarin 0.625 mg Tablet 0.625 mg PO DAILY lisinopril 20 mg Tablet 20 mg PO DAILY atenolol 50 mg Tablet 50 mg DAILY clopidogrel [Plavix] 75 mg Tablet 75 mg PO DAILY atorvastatin 80 mg Tablet 80 mg PO DAILY metformin 500 mg Tablet 500 mg PO BID insulin glargine 100 unit/mL Cartridge 25 unit SUBCUT DAILY timolol 0.25 % Drops 1 drp EYE-RIGHT BID latanoprost 0.005 % Drops 1 drp EYE-RIGHT BEDTIME brimonidine 0.15 % Drops 1 drp EYE-RIGHT BID prednisone 20 mg tablet 40 mg PO DAILY Qty: 10 0RF Referrals: Filipe Soni MD [Primary Care Provider] - Stand Alone Forms: Patient Portal/API
--- NOTE | 2022-03-24 06:32 | DI.CT.S_ITS ---
PROCEDURE: CT HEAD/BRAIN WO CON INDICATIONS: worst headache, HTN TECHNIQUE: Noncontrast 4.5 mm thick angled axial sections acquired from the foramen magnum to the vertex, with coronal and sagittal reformats. For radiation dose reduction, the following was used: automated exposure control, adjustment of mA and/or kV according to patient size. COMPARISON: None. FINDINGS: Image quality: Excellent. CSF spaces: Basal cisterns are patent. No extra-axial fluid collections. Ventricles are normal in size and shape. Brain: No midline shift. No intracranial masses or hemorrhage. No area of hypodensity in a large vascular distribution to suggest acute infarction. Periventricular hypodensity consistent with chronic microvascular ischemic change. Distal atherosclerotic calcifications. Age-related parenchymal loss. Skull and face: Calvarium and visualized facial bones are intact, without suspicious lesions. Sinuses: Visualized sinuses and mastoids are clear. IMPRESSION: No acute intracranial abnormality. This report is concordant with the overnight preliminary interpretation. Dictated by: Juan Manuel Hester M.D. on 03/24/2022 at 8:16 Approved by: Juan Manuel Hester M.D. on 03/24/2022 at 8:19
[2022-03-24] MEDS: ONDANSETRON 4 MG/2 ML INJ IV (06:46)
[2022-03-24] MEDS: SODIUM CHLORIDE 0.9% 1,000 ML 1000 ML IV (06:46)
[2022-03-24 08:10] LABS: Add Manual Diff / Slide Review NO; Basophils Absolute Auto 100 /uL (0-100); Basophils Percent Auto 1.1 % (0-2); Eosinophils Absolute Auto 100 /uL (0-450); Eosinophils Percent Auto 1.3 % (2-4); Hematocrit 38.3 % (36-46); Hemoglobin 12.6 g/dL (12.0-16.0); Lymphocytes Absolute Auto 1600 /uL (1100-4500); Lymphocytes Percent Auto 21.8 % (25-40); Mean Corpuscular Volume 90.7 fL (80-100); Monocytes Absolute Auto 600 /uL (0-900); Neutrophils Absolute Auto 5100 /uL (1500-7000); Neutrophils Percent Auto 67.8 % (50-75); Platelet Count 291 X10^3/uL (150-400); Red Blood Cell Count 4.22 X10^6/uL (4.0-5.2); Red Cell Distribution Width 13.4 % (11.6-14.8); White Blood Cell Count 7.5 X10^3/uL (4.5-11.0)
[2022-03-24 08:15] LABS: Prothrombin Time 11.5 SECONDS (10.1-12.7)
[2022-03-24 08:18] LABS: PTT Partial Thromboplastin Tim 29 SECONDS (26-36)
[2022-03-24 08:20] LABS: Alanine Aminotransferase 16 IU/L (<35); Albumin 3.7 g/dL (3.5-5.0); Albumin Globulin Ratio 1.2 (1.0-2.8); Alkaline Phosphatase 59 U/L (38-126); Aspartate Aminotransferase 20 IU/L (14-36); BUN Creatinine Ratio 20.8 (6-22); Bilirubin Total 0.3 mg/dL (0.2-1.3); Blood Urea Nitrogen 11 mg/dL (7-17); Calcium 8.3 mg/dL (8.4-10.2); Carbon Dioxide 30 mmol/L (22-32); Chloride 98 mmol/L (98-107); Creatine Kinase 28 U/L (30-135); Estimated Glomerular Filt Rate > 60 mL/min (>60); Glucose 141 mg/dL (80-110); HEMOLYSIS < 15 (0-50); Potassium 4.4 mmol/L (3.4-5.1); Sodium 135 mmol/L (137-145); Total Protein 6.7 g/dL (6.3-8.2)
[2022-03-24 08:31] LABS: Troponin I < 0.012 ng/mL (0.01-0.034)
[2022-03-24] MEDS: KETOROLAC 30 MG/ML VIAL 15 MG IV (09:27)
[2022-03-24] MEDS: METOCLOPRAMIDE 10 MG/2 ML INJ 5 MG IV (09:28)
[2022-03-24] MEDS: OXYCODONE 5 MG/5 ML ORAL SOLUTION PO (10:46)
== END 2022-03-24 11:10 | disposition home or self-care (01) ==
PROVIDERS: Emergency Medicine; Emergency Provider Emergency Medicine; PCP Internal Medicine
DX: R51.9 Headache, unspecified (principal); R13.10 Dysphagia, unspecified; I10 Essential (primary) hypertension; R29.702 NIHSS score 2
CPT/HCPCS: 36415; 70450; 80053; 81003; 82550; 84484; 85025; 85610; 85730; 93005; 96361; 96374; 96375; 99284; J1885; J2405; J2765

== ENCOUNTER → 2022-03-30 12:35 | Outpatient (CLI) | payer MEDICARE, OTHER, SELFPAY ==
[2021-11-15 16:33] VITALS: BMI 28.3
--- NOTE | 2022-03-30 12:37 | DI.RAD.S_ITS ---
PROCEDURE: FL BARIUM SWALLOW INDICATIONS: Dysphagia COMPARISON: None. FINDINGS: Function: There is mild esophageal dysmotility. No elicited gastroesophageal reflux. There is normal transit of a calibrated barium tablet through the esophagus into the stomach. Morphology: Air-contrast images demonstrate normal mucosal morphology. Single contrast views show no esophageal strictures, extrinsic mass effects, or diverticula. Limited images of the stomach demonstrate normal appearance. IMPRESSION: 1. Mild esophageal dysmotility. 2. No gastroesophageal reflux. 3. No esophageal obstruction. Dictated by: Lavelle Moore M.D. on 03/31/2022 at 7:49 Approved by: Lavelle Moore M.D. on 03/31/2022 at 7:50
== END ==
PROVIDERS: PCP Internal Medicine; Referring Provider Surgery; Visit Provider Surgery
DX: R13.10 Dysphagia, unspecified (principal); K22.4 Dyskinesia of esophagus
CPT/HCPCS: 74220

== ENCOUNTER 2022-04-02 20:12 | Emergency (ER) | payer MEDICARE, OTHER, SELFPAY ==
[2021-11-15 16:33] VITALS: BMI 28.3
[2022-04-02 20:22] VITALS: BP 186/81; PULSE 71; RESP 18; TEMP 36.3; O2SAT 96; BMI 25.7
--- NOTE | 2022-04-03 02:03 | ED.GENADULT ---
HPI - General Adult General Chief complaint: Recheck/Abnormal Lab/Rx Stated complaint: unable to swallow/cant eat/procedure 03/30 Time Seen by Provider: 04/02/22 22:32 Source: patient Mode of arrival: Ambulatory Limitations: no limitations History of Present Illness HPI narrative: This is a 76-year-old female with history of difficulty swallowing. Patient had a barium swallow recently, it shows mild esophageal dysmotility no structural changes. She is seen Dr. Cristina. She has a follow-up in the next month she states she is having difficulty swallowing liquids but able to swallow liquids. Pills and solids she states she can not swallow. She states they do not come back she does not vomit them but they feel like they get stuck so she has not been taking them. She states she can drink thickened things such as protein shakes. Patient has not had fevers chills. No chest pain no shortness of breath. No changes to voice. No issues she is able to swallow her secretions. Patient has had issues persistently for several months. She has reportedly been given referral for Gastroenterology but has not seen them. She did see Dr. Cristina is supposed to follow-up in the next 1-2 weeks. Related Data Home Medications Medication Instructions Recorded Confirmed atenolol 50 mg tablet 50 mg DAILY 11/15/21 03/27/22 brimonidine 0.15 % eye drops 1 drp EYE-RIGHT BID 11/15/21 03/27/22 clopidogrel 75 mg tablet (Plavix) 75 mg PO DAILY 11/15/21 03/27/22 conjugated estrogens 0.625 mg 0.625 mg PO DAILY 11/15/21 03/27/22 tablet (Premarin) insulin glargine 100 unit/mL 25 unit SUBCUT DAILY 11/15/21 03/27/22 subcutaneous cartridge latanoprost 0.005 % eye drops 1 drp EYE-RIGHT BEDTIME 11/15/21 03/27/22 metformin 500 mg tablet 500 mg PO BID 11/15/21 03/27/22 timolol 0.25 % eye drops 1 drp EYE-RIGHT BID 11/15/21 03/27/22 losartan 50 mg tablet 50 mg PO DAILY 03/27/22 03/27/22 Previous Rx's Medication Instructions Recorded acetaminophen 500 mg oral powder 500 mg PO QID PRN pain #32 ea 03/24/22 packet (Tylenol Extra Strength) hyoscyamine sulfate 0.125 mg 0.25 mg PO QID PRN dyspepsia #30 04/03/22 disintegrating tablet (Anaspaz) tabs hyoscyamine sulfate 0.125 mg 0.25 mg PO TID-QID PRN dyspepsia 04/03/22 disintegrating tablet (Anaspaz) #30 tabs Allergies Allergy/AdvReac Type Severity Reaction Status Date / Time codeine [CODEINE] Allergy Unknown Verified 03/27/22 16:03 shellfish derived Allergy Unknown Verified 03/27/22 16:03 [SHELLFISH DERIVED] Review of Systems Review of Systems ROS Unobtainable: All systems reviewed & are unremarkable except as noted in HPI and below Patient History Medical History CAD (coronary artery disease) CVA (cerebral vascular accident) Diabetes Surgical History Hx of hysterectomy Family History Father Hypertension Heart disease Mother Hypertension Diabetes mellitus Sister Cancer Social History household members: spouse Smoking Status: Former smoker Smoking Status: Former smoker alcohol intake frequency: holidays/special occasions only Substance Use Type: does not use Exam Narrative Exam Narrative: GEN: well nourished, well appearing female, alert and oriented x 3, patient appears to be in no acute distress. HEENT: Atraumatic, pupils are equal round reactive to light, extraocular movements are intact, nares are clear, Throat is clear without any exudates, erythema, tonsillar enlargement or uvular deviation, no swelling of the neck. No thyromegaly. Patient is handling secretions without issue. Normal speech. No hoarseness or muffled voice. HEART: Regular rate and rhythm without murmur, clicks, rubs. No carotid bruits, pulses are equal in upper and lower extremities LUNGS:Lungs clear to auscultation, no wheezes, rales, crackles, chest moves symmetrically ABD:bowel sounds normal, soft, non-tender, no guarding, rebound, rigidity, no masses noted, no hepatosplenomegaly MSCL: Non-tender, no muscle atrophy, muscles strength 5/5 upper and lower extremities, full range of motion, normal gait NEURO:CN 2-12 intact, sensation normal SKIN: No rash, erythema or skin changes. Initial Vital Signs Initial Vital Signs: Vital Signs Temperature 97.4 F L 04/02/22 20:22 Pulse Rate 71 04/02/22 20:22 Respiratory Rate 18 04/02/22 20:22 Blood Pressure 186/81 H 04/02/22 20:22 Pulse Oximetry 96 04/02/22 20:22 Oxygen Delivery Method 04/02/22 20:22 Course Vital Signs Vital signs: Vital Signs - 8 hr 04/03/22 02:51 Pulse Rate 60 Respiratory Rate 18 Blood Pressure 139/63 Pulse Oximetry 96 Oxygen Delivery Method Room Air Medical Decision Making MDM Narrative Medical decision making narrative: 76-year-old female with history of difficulty with swallowing. Patient is tolerating secretions solid has been slowly worsening over time no significant change tonight but just not improving according to her and her . She did have a barium swallow on the 30 of March so some mild dysmotility. They are supposed to see Dr. Cristina for EGD but this will probably be in several weeks. I spoke with our general surgeon 3rd call today to try to move it up. We discussed possible medications that might be helpful to help if there is motility issues with the muscles. Prescription was sent for the patient. Return precautions. We talked about labs but patient and for. Patient does appear appropriate for discharge. She is tolerating fluids and we discussed adding protein shakes her other they can fluids. She is not actually vomiting or having a lot of distress when she eats solids it just feels stuck Discharge Plan Departure Patient Disposition: Home Clinical Impression: Esophageal dysmotility Instructions: DI for Esophageal Dysphagia Activity Restrictions/Additional Instructions: Follow-up with Dr. Cristina or his partner Dr. Hernandez. Call the office 1st thing this morning to see if they can move up your EGD a sooner date. Take medication as prescribed, he can take this medication 4 times daily. Prescription sent to the [facility] Please return for worsening symptoms inability to swallow liquids, dehydration, vomiting, fevers, shortness of breath or chest pain or other new or concerning changes. Prescriptions: New hyoscyamine sulfate [Anaspaz] 0.125 mg tablet,disintegrating 0.25 mg PO QID PRN (Reason: dyspepsia) Qty: 30 0RF hyoscyamine sulfate [Anaspaz] 0.125 mg tablet,disintegrating 0.25 mg PO TID-QID PRN (Reason: dyspepsia) Qty: 30 0RF No Action losartan 50 mg tablet 50 mg PO DAILY Premarin 0.625 mg Tablet 0.625 mg PO DAILY atenolol 50 mg Tablet 50 mg DAILY clopidogrel [Plavix] 75 mg Tablet 75 mg PO DAILY metformin 500 mg Tablet 500 mg PO BID insulin glargine 100 unit/mL Cartridge 25 unit SUBCUT DAILY timolol 0.25 % Drops 1 drp EYE-RIGHT BID latanoprost 0.005 % Drops 1 drp EYE-RIGHT BEDTIME brimonidine 0.15 % Drops 1 drp EYE-RIGHT BID Tylenol Extra Strength 500 mg powder in packet 500 mg PO QID PRN (Reason: pain) Qty: 32 0RF Referrals: Filipe Soni MD [Primary Care Provider] - Stand Alone Forms: Patient Portal/API
[2022-04-03 02:51] VITALS: BP 139/63; PULSE 60; RESP 18; O2SAT 96
== END 2022-04-03 02:53 | disposition home or self-care (01) ==
PROVIDERS: Emergency Provider Emergency Medicine; PCP Internal Medicine
DX: K22.4 Dyskinesia of esophagus (principal)
CPT/HCPCS: 99281

== ENCOUNTER → 2022-04-18 13:36 | Outpatient (CLI) | payer MEDICARE, OTHER, SELFPAY ==
[2021-11-15 16:33] VITALS: BMI 28.3
[2022-04-18 14:09] VITALS: BMI 24.2
--- NOTE | 2022-04-20 10:56 | DIET.OUTPTC ---
Dietary Outpatient Consultation Note Consultation Date: 04/20/2022 Visit Date: 04/18/2022 77 y/o F presenting with esophageal dysmotility with associated 18% unintentional weight loss in 4mo. Met with pt along with spouse to discuss current dietary intake and ways to support adequate intake. Pt reports developing problems with swallowing around January 2022. Symptoms include food and pills getting stuck in throat which has resulted in decreased kcal/protein intake and severe wt loss. Symptoms have not improved since onset and additionally reports cotton mouth and post-nasal drip (coughing up mucus). Pt had a barium swallow Apr 02, 2022 which showed esophageal dysmotility but no acid reflux. Pt was not given referral to speech therapy nor scheduled for Modified Barium Swallow Study. In November, pt got COVID. Post-COIVD, pts BG, BP, and O2 levels went extreme one way or another. Since then, BP has settled. BG still goes up and down.? For T2DM: Takes Lantus 15 units insulin at night. Only checks BG at 10:00 pm. Pt experiences occasional lows at night between 60-70. To correct, drinks juice which she keeps next to her while sleeping. Will occasionally eat a mini candy bar (in past) or tea with tsp sugar after if needed. Pt reports not taking prescribed Metformin BID 500 mg. However, since discontinuing, has not experienced any changes BG numbers.? Wt Hx: January: 78.2 kg / 172 lbs (pt reported) Current: 64 kg / 140.8 lbs Pt has had 18% unintentional wt loss in 4 months and reports that she feels she has lost too much muscle/wt in her legs resulting in weakness while walking. Diet recall: - 1/2 cup soup - Beef or chicken broth - 1/2 slice bread soaked in broth - 1 Ensure - does not enjoy but tries to drink at least one/day. - Thin mashed potatoes (butter and sour cream) - only eats a few Tbsp.? - Water Pt and mostly eats at home. Pt enjoys pancakes, cheese, cottage cheese, PB, pudding. Does not like straight dairy. Cannot eat Jello d/t its rubbery consistency.? Pt seems to have developed food-related fears of food getting stuck in throat.? Nutrition Diagnosis: Severe Acute Protein Calorie Malnutrition r/t esophageal dysmotility aeb 18% unintentional wt loss in 4 months, food/pills getting stuck in throat and developed fears resulting in reduced solid food intake, diet recall suggesting inadequate protein calorie intake meeting <50% EER.? Interventions:? 1. Recc honey packet to correct BG lows followed by protein food/liquid to avoid drop in BG.?Pt declining meeting with DM Educator at this time. 2. Collaborated on ways to safely increase calorie intake: blended creamy soups, PB by the spoon, small curd cottage cheese, pudding, collagen added to broth or jello, Ensure Plus, syrup or butter-soaked pancakes, etc. 3. Recc frequent small meals.? 4. Discussed potential future use of nutrition support such as NG tube trial and PEG placement.?Pt would like to try PO interventions before approaching artificial nutrition support. 5. Strongly recommend pt see a Speech Language Pathologist to determine tolerated textures and strengthening throat muscles? Monitoring/Evaluations: refer to WASHING MACHINE LOADER at [facility] or locally to pt in [place]. Electronically Signed by: Quiana Rader 04/20/22 09:36 Clinical Dietitian [address] [address] Electronically Signed by: Quiana Rader 04/20/22 10:[address] [address]
== END ==
PROVIDERS: Absent Provider Family Medicine; Family Provider Family Medicine; PCP Internal Medicine; Referring Provider Family Medicine; Visit Provider Family Medicine
DX: K22.89 Other specified disease of esophagus (principal); R63.4 Abnormal weight loss; E43 Unspecified severe protein-calorie malnutrition; Z71.3 Dietary counseling and surveillance
CPT/HCPCS: 97802

== ENCOUNTER 2022-05-06 19:13 | Emergency (ER) | payer MEDICARE, OTHER, SELFPAY ==
[2021-11-15 16:33] VITALS: BMI 28.3
[2022-05-06] VITALS (7 sets, daily range): BP systolic 139–166; BP diastolic 65–86; PULSE 63–89; RESP 16–30; TEMP 36.4; O2SAT 94–98; BMI 24.3
--- NOTE | 2022-05-06 19:29 | DI.RAD.S_ITS ---
PROCEDURE: XR ACUTE ABDOMEN SERIES INDICATIONS: constipation couple weeks TECHNIQUE: One view chest and two views of the abdomen were acquired. COMPARISON: [facility], CR, XR CHEST 2V, 12/21/2021, 23:52. [facility], CR, XR CHEST 1V, 03/02/2022, 8:03. FINDINGS: Surgical changes and devices: None. Chest: Lungs are clear. Heart size is normal. Atherosclerotic calcification of the aortic arch is noted. No pleural effusions. No pneumoperitoneum. Abdomen: Bowel gas pattern is normal. There is a moderate volume of stool seen within the colon. No suspicious calcifications. Atherosclerotic calcification is noted. Visualized solid organ contours appear normal. Bones: No suspicious bony lesions. IMPRESSION: There is a moderate amount of stool seen, which is consistent with the given history of constipation. Additional findings: Atherosclerotic calcification Dictated by: Anthony Cowart M.D. on 05/06/2022 at 19:20 Approved by: Anthony Cowart M.D. on 05/06/2022 at 19:21
[2022-05-06] MEDS: GLYCERIN SUPP ADULT 1 SUPP 1 EACH PR (22:28)
--- NOTE | 2022-05-06 23:36 | ED.GENADULT ---
HPI - General Adult General Chief complaint: Abdominal Pain Stated complaint: constipation for one week, abd pain Time Seen by Provider: 05/06/22 19:33 History of Present Illness HPI narrative: 77-year-old woman with a history of coronary artery disease, stroke, diabetes and recently increased motility issues. She is been having esophageal dysmotility and more problems with both constipation and diarrhea. She has not had a bowel movement for over a week. She notes that she has very little sensation in her rectum and has difficulty in pushing stool out. She has not noticed any bleeding from below she is having abdominal pain that she feels is related to her constipation but not complaining of significant tenesmus. She is had no recent fevers cough or chills. She notes she is lost almost 35 lb over the last 3 much, since the esophageal dysmotility has become an issue. She is seeing physicians and is in the middle of a workup for the dysmotility issues. Regarding her constipation over the last week she is taken 2 doses of milk of magnesia. Related Data Home Medications Medication Instructions Recorded Confirmed atenolol 50 mg tablet 50 mg DAILY 11/15/21 03/27/22 brimonidine 0.15 % eye drops 1 drp EYE-RIGHT BID 11/15/21 03/27/22 clopidogrel 75 mg tablet (Plavix) 75 mg PO DAILY 11/15/21 03/27/22 conjugated estrogens 0.625 mg 0.625 mg PO DAILY 11/15/21 03/27/22 tablet (Premarin) insulin glargine 100 unit/mL 25 unit SUBCUT DAILY 11/15/21 03/27/22 subcutaneous cartridge latanoprost 0.005 % eye drops 1 drp EYE-RIGHT BEDTIME 11/15/21 03/27/22 metformin 500 mg tablet 500 mg PO BID 11/15/21 03/27/22 timolol 0.25 % eye drops 1 drp EYE-RIGHT BID 11/15/21 03/27/22 losartan 50 mg tablet 50 mg PO DAILY 03/27/22 03/27/22 Previous Rx's Medication Instructions Recorded acetaminophen 500 mg oral powder 500 mg PO QID PRN pain #32 ea 03/24/22 packet (Tylenol Extra Strength) hyoscyamine sulfate 0.125 mg 0.25 mg PO QID PRN dyspepsia #30 04/03/22 disintegrating tablet (Anaspaz) tabs hyoscyamine sulfate 0.125 mg 0.25 mg PO TID-QID PRN dyspepsia 04/03/22 disintegrating tablet (Anaspaz) #30 tabs Allergies Allergy/AdvReac Type Severity Reaction Status Date / Time codeine [CODEINE] Allergy Unknown Verified 05/06/22 19:26 shellfish derived Allergy Unknown Verified 05/06/22 19:26 [SHELLFISH DERIVED] Patient History Medical History CAD (coronary artery disease) CVA (cerebral vascular accident) Diabetes Surgical History Hx of hysterectomy Family History Father Hypertension Heart disease Mother Hypertension Diabetes mellitus Sister Cancer Social History household members: spouse Smoking Status: Former smoker Smoking Status: Former smoker alcohol intake frequency: holidays/special occasions only Substance Use Type: does not use Exam Initial Vital Signs Initial Vital Signs: Vital Signs Temperature 97.6 F 05/06/22 19:20 Pulse Rate 89 05/06/22 19:20 Respiratory Rate 16 05/06/22 19:20 Blood Pressure 139/86 05/06/22 19:20 Pulse Oximetry 97 05/06/22 19:20 Oxygen Delivery Method Room Air 05/06/22 19:20 General: Alert appropriate in no acute distress Respiratory: Able to speak in full sentences, no obvious respiratory distress Skin: No obvious rashes, warm and dry abdomen, mildly tender without rebound or guarding. on rectal exam, she has soft stool in the vault with poor overall rectal tone Neurologic: Grossly intact no obvious asymmetries or abnormalities Psych: appropriate insight and affect, cooperative Course Orders Ordered: ED Orders 05/06/22 19:29 XR acute abdomen series Stat Discontinued Medications Glycerin (Glycerin Supp Adult 1 Supp) 1 each NM NOW ONE Stop: 05/06/22 22:18 Last Admin: 05/06/22 22:28 Dose: 1 each Documented By: BENITO Vital Signs Vital signs: Vital Signs - 8 hr 05/06/22 19:20 Temperature 97.6 F Pulse Rate 89 Respiratory Rate 16 Blood Pressure 139/86 Pulse Oximetry 97 Oxygen Delivery Method Room Air Medical Decision Making Lab Data Labs: Urine Dip Bedside Urine Glucose Negative Bedside Urine Bilirubin - Negative Bedside Urine Ketone - Negative Urine Specific [place] 1.010 Bedside Urine Occult Blood - Negative Bedside Urine pH 6.0 Bedside Urine Protein - Negative Bedside Urine Urobilinogen - Negative Bedside Urine Nitrite - Negative Bedside Urine Leukocytes - Negative Esterase Point of care testing: Urine Dip Bedside Urine Glucose Negative Bedside Urine Bilirubin - Negative Bedside Urine Ketone - Negative Urine Specific [place] 1.010 Bedside Urine Occult Blood - Negative Bedside Urine pH 6.0 Bedside Urine Protein - Negative Bedside Urine Urobilinogen - Negative Bedside Urine Nitrite - Negative Bedside Urine Leukocytes - Negative Esterase MDM Narrative Medical decision making narrative: CC:Abdominal pain and constipation. This is a worsening chronic problem uncertain diagnosis Complicating co-morbidities: esophageal dysmotility, diabetes, coronary artery disease Corroborating data: Data collected from: patient, Medical records reviewed: prior hospital admissions are reviewed Differential considered:: Dysmotility, significant constipation, bowel obstruction,neoplastic process Exam documented above, pertinent findings include: benign exam Imaging studies independently reviewed: abdominal x-ray shows no free air, no bowel obstruction and moderate to large amount of stool and gas Treatments: glycerin suppository Discussion: discussed with patient the need for adding laxatives to her regimen. At this point the stool that is there is soft she just has little sensation to be able to push it out. She has difficulty with eating any solids or taking pillsBecause of the recently diagnosed esophageal dysmotility. We talked about adding milk of magnesia up to twice a day and using smooth move tea as a source of senna that she will be able to easily swallow and adding a bit of hydration. at this time there is no evidence of surgical abdomen, no additional workup or imaging is required and she is safe for discharge home Disposition: see below, along with detailed discharge instructions that have been reviewed with patient as well as indications for ED re-evaluation and additional outpatient follow up Discharge Plan Departure Patient Disposition: Home Clinical Impression: Abdominal pain, Constipation Instructions: DI for Constipation Activity Restrictions/Additional Instructions: thank you for coming in today your constipation is because of poor motility rather than firm stool. Because of this stool softeners are not going to be quite as effective . I am going to suggest that you increase your dose of milk of magnesia. You can take it up to twice a day if you have not had a bowel movement that day. I am going to also suggest that you add smooth move herbal tea. You can take up to 2 cups a day. The longer you steep the tea bag, the more potent the concentration of senna is in the tea. This is the medication that actually causes your bowel to constrict and push the stool out. If you find that you are getting worse or develop any new symptoms, please feel free to return to the emergency department for further evaluation. Prescriptions: No Action losartan 50 mg tablet 50 mg PO DAILY Premarin 0.625 mg Tablet 0.625 mg PO DAILY atenolol 50 mg Tablet 50 mg DAILY clopidogrel [Plavix] 75 mg Tablet 75 mg PO DAILY metformin 500 mg Tablet 500 mg PO BID insulin glargine 100 unit/mL Cartridge 25 unit SUBCUT DAILY timolol 0.25 % Drops 1 drp EYE-RIGHT BID latanoprost 0.005 % Drops 1 drp EYE-RIGHT BEDTIME brimonidine 0.15 % Drops 1 drp EYE-RIGHT BID Tylenol Extra Strength 500 mg powder in packet 500 mg PO QID PRN (Reason: pain) Qty: 32 0RF hyoscyamine sulfate [Anaspaz] 0.125 mg tablet,disintegrating 0.25 mg PO QID PRN (Reason: dyspepsia) Qty: 30 0RF hyoscyamine sulfate [Anaspaz] 0.125 mg tablet,disintegrating 0.25 mg PO TID-QID PRN (Reason: dyspepsia) Qty: 30 0RF Referrals: Filipe Soni MD [Primary Care Provider] - Stand Alone Forms: Patient Portal/API
== END 2022-05-07 00:04 | disposition home or self-care (01) ==
PROVIDERS: Emergency Provider Emergency Medicine; Family Provider Family Medicine; PCP Internal Medicine
DX: R10.9 Unspecified abdominal pain (principal); K59.00 Constipation, unspecified
CPT/HCPCS: 74022; 81003; 93005; 93010; 99283; 99284

== ENCOUNTER → 2022-05-17 10:15 | Outpatient (CLI) | payer MEDICARE, OTHER, SELFPAY ==
[2021-11-15 16:33] VITALS: BMI 28.3
--- NOTE | 2022-05-17 | DI.RAD.S_ITS ---
PROCEDURE: [place] BARIUM SWALLOW W SPEECH INDICATIONS: Dyskinesia of esophagus COMPARISON: TECHNIQUE: Examination was conducted in conjunction with speech pathology per standard protocol. In the lateral projection, filming was performed of the patient swallowing. AP projection filming may also be performed with patient swallowing. COMPARISON: [facility], , [place] BARIUM SWALLOW, 03/30/2022, 14:02. FINDINGS: Function: The oral preparatory phase appears normal, with proper containment. The subsequent oral propulsive phase, pharyngeal phase, and esophageal phase of swallowing also appear normal with all proffered substances. Frequently maya penetration was seen without ondina tracheal aspiration. Mild vallecular pooling. A calibrated barium tablet passes normally into the stomach. Morphology: No cricopharyngeal bar is identified. No cervical esophageal webs. No Zenker's diverticulum. No strictures. IMPRESSION: Recurrent transient laryngeal penetration without ondina aspiration. Of note, please see independent report generated by the speech pathologist for further detailed specifics and characterization of the modified speech swallow study. Approved by: Christiano Dahl M.D. on 05/18/2022 at 8:16
--- NOTE | 2022-05-17 16:15 | ST.SWALLOW ---
Visit Care Team Role Provider Type Filipe Soni MD Primary Care Provider Non-Staff Specialty: Internal Medicine Address: [address] [place] [address], [id number] Email: Jaylen Dozier DO Attending Provider Non-Staff Family Provider Referring Provider Specialty: Family Practice Address: [address] [place] [address], [id number] Email: Modified Barium Swallow Study V BELT COVERER Modified Barium Swallow Study Start: 05/17/22 13:08 Freq: Status: Active Protocol: Document 05/17/22 13:08 LNK (Rec: 05/17/22 13:35 LNK [id number]) Modified Barium Swallow Study Total Time Visit Start Time 10:30 Visit Stop Time 11:15 Total Visit Minutes [address] Dozier; Dr Silverio Reason for Referral dysphagia Setting Setting Outpatient Care Patient Information Identification Type Name,Date of Patient History Pt was seen for a Modified barium Swallow Study (MBSS) at the referral of Dr. Dozier. Pt reported that she has been having difficulty swallowing since January 2022. She reported a PMH of COVID in November that required hospitalization and since that time she has had difficulty managing her blood sugars and blood pressure. She reported a remote PHM of a TIA/CVA approximately 20 years ago. Pt had a barium swallow study completed on 03/30/22. The results indicated mild esophageal dysmotility, no gastroesophageal reflux and no esophageal obstruction. According to the pt, Dr. Dozier suggested a MBSS following his review of the barium swallow results. Pt described her swallowing ans an inability to swallow any solids or pills. She has put herself on a liquid diet. She stated that when she swallows a pill or any solid foods, they feel stuck in her mid neck. She stated that she feels as though she is unable to breath and that she will choke. She has become fearful of any PO that is not liquid. Subjective Observations Pt presented as anxious. She was seated in the fluoroscpopy chair with instructions and procedures described for her. She became fearful when the different trial textures ( semi-solid and solid) were described. Additionally she reported that she did not wear her dentures as they do not fit and she gags on them. An alternative trial of thick barium mixed with cookie pieces mixed in was prepared, which the pt then agreed to try. She also agreed to the cookie (half cookie) if she could take her time gumming the cookie before swallowing. Following these changes and directions, she indicated she agreed to proceed with the MBSS. Patient Positioning Position View Lat-A/P Imaging Lateral View Textures Administered Trials Presented Thin Liquid via Spoon,Thin Liquid via Cup,Argos Liquid via Spoon,Argos Liquid via Cup,Pudding Thick Liquid via Spoon,Dysphagia Mechanical Textures,Regular Textures, Barium Tablet Oral Phase Source: MBSIMP (TM) (C) Bolus Specific Scoring Grid Additional Oral Phase Observations OME and DKS were observed to be WFL. Pt c/o dry mouth frequently during the procedure. Pt was edentulous. Oral phase: Bolus hold, tongue control and A-P transition were noted to be WFl. When presented with the semi-solid, mixed paste/cookie and the cookie trials, an anterior munching mastication pattern was observed. Pharyngeal Phase Source: MBSIMP (TM) (C) Bolus Specific Scoring Grid Delayed Initiation of Pharyngeal Swallow Yes: premature spillage of bolus head to valeculla and pyriform sinuses Soft Palate Elevation WFL Tongue Base Strength/Range of Motion Moderate Impairment Residue Along the Tongue Base Yes Clearance of Residue Along Tongue Base Moderate Impairment Laryngeal Elevation Mild Impairment Anterior Hyoid Movement Mild Impairment Epiglottic Range of Motion Moderate Impairment Clearance of Vallecular Residue Moderate Impairment Laryngeal Vestibular Closure Moderate Impairment Pharyngeal Stripping Wave Mild Impairment Posterior Pharyngeal Wall Residue Yes Clearance of Posterior Pharyngeal Wall Mild Impairment Residue Residue in the Pyriform Sinuses Trace to minimal Clearance of Residue in the Pyriform WFL Sinuses Esophageal Clearance Upright Position No Impairment (WNL) Pharyngoesophageal Backflow Observed No Additional Pharyngeal Phase Observations Premature spillage of the bolus to the pyriforms pre- swallow was consistent across all trials. Moderate tongue base weakness negatively impacted hyolaryngeal elevation and epiglottic inversion. Moderately weak laryngeal seal was noted with penetration into the laryngeal vestibule observed 10+x . No tracheal aspiration was observed. Pt did not demonstrate a reflexive cough with penetration. Cued cough was weak and minimally productive. Obstruction of the pharynx and/or laryngeal vesitibule was not observed. All trials ( liquids/solids/ tablet) were controlled to the UES with adequate extension and duration of the UES. Esophageal clearance was timely. A/P View Esophageal Observations Esophageal Function The barium tablet was observed to clear the esophagus in a timely manner. Clinical Impressions Dysphagia Type oropharyngeal Rehabilitation Potential Good Patient Appropriate for Therapy Yes Recommendations Diet Liquids Order Argos Diet Order Dysphagia Mechanical Medication Recommendation Whole in Carrier,Crushed in Carrier Aspiration Precautions Recommended Precautions Upright at 90 Degrees,Frequent Rest Periods,Small Bites/Sips ,Liquids from Cup Treatment Plan Therapy Recommendations Outpatient Speech Therapy,Base of Tongue Exercises, Compensatory Strategy Education Compensatory Strategies Recommendations Sitting Upright (90 deg),Small Bites and Sips,Alternate Liquids/Solids
== END ==
PROVIDERS: Family Provider Family Medicine; PCP Internal Medicine; Referring Provider Family Medicine; Visit Provider Family Medicine
DX: K22.4 Dyskinesia of esophagus (principal)
CPT/HCPCS: 74230; 92611

== ENCOUNTER → 2022-07-25 13:42 | Outpatient (CLI) | payer MEDICARE, OTHER, SELFPAY ==
[2021-11-15 16:33] VITALS: BMI 28.3
== END ==
PROVIDERS: Family Provider Family Medicine; PCP Internal Medicine; Referring Provider Internal Medicine; Visit Provider Surgery
DX: I70.245 Atherosclerosis of native arteries of left leg with ulceration of other part of foot (principal); L97.521 Non-pressure chronic ulcer of other part of left foot limited to breakdown of skin; L97.421 Non-pressure chronic ulcer of left heel and midfoot limited to breakdown of skin; E11.622 Type 2 diabetes mellitus with other skin ulcer; E11.51 Type 2 diabetes mellitus with diabetic peripheral angiopathy without gangrene
CPT/HCPCS: 99203; 99211

== ENCOUNTER → 2022-08-09 13:03 | Outpatient (CLI) | payer MEDICARE, OTHER, SELFPAY ==
[2021-11-15 16:33] VITALS: BMI 28.3
== END ==
PROVIDERS: Family Provider Family Medicine; PCP Internal Medicine; Referring Provider Internal Medicine; Visit Provider Surgery
DX: I70.245 Atherosclerosis of native arteries of left leg with ulceration of other part of foot (principal); L97.421 Non-pressure chronic ulcer of left heel and midfoot limited to breakdown of skin; L97.511 Non-pressure chronic ulcer of other part of right foot limited to breakdown of skin; Z89.412 Acquired absence of left great toe
CPT/HCPCS: 99213

== ENCOUNTER → 2022-08-23 13:38 | Outpatient (CLI) | payer MEDICARE, OTHER, SELFPAY ==
[2021-11-15 16:33] VITALS: BMI 28.3
== END ==
PROVIDERS: Family Provider Family Medicine; PCP Internal Medicine; Referring Provider Internal Medicine; Visit Provider Surgery
DX: I70.245 Atherosclerosis of native arteries of left leg with ulceration of other part of foot (principal); I70.243 Atherosclerosis of native arteries of left leg with ulceration of ankle; L97.521 Non-pressure chronic ulcer of other part of left foot limited to breakdown of skin; L97.421 Non-pressure chronic ulcer of left heel and midfoot limited to breakdown of skin; I96 Gangrene, not elsewhere classified; I10 Essential (primary) hypertension
CPT/HCPCS: 99213

== ENCOUNTER → 2022-09-13 13:29 | Outpatient (CLI) | payer MEDICARE, OTHER, SELFPAY ==
[2021-11-15 16:33] VITALS: BMI 28.3
== END ==
PROVIDERS: Family Provider Family Medicine; PCP Internal Medicine; Referring Provider Internal Medicine; Visit Provider Surgery
DX: I70.244 Atherosclerosis of native arteries of left leg with ulceration of heel and midfoot (principal); I96 Gangrene, not elsewhere classified; L97.521 Non-pressure chronic ulcer of other part of left foot limited to breakdown of skin; L97.421 Non-pressure chronic ulcer of left heel and midfoot limited to breakdown of skin; E11.51 Type 2 diabetes mellitus with diabetic peripheral angiopathy without gangrene; E11.622 Type 2 diabetes mellitus with other skin ulcer
CPT/HCPCS: 99213

== ENCOUNTER → 2022-09-27 13:19 | Outpatient (CLI) | payer MEDICARE, OTHER, SELFPAY ==
[2021-11-15 16:33] VITALS: BMI 28.3
== END ==
PROVIDERS: Family Provider Family Medicine; PCP Internal Medicine; Referring Provider Internal Medicine; Visit Provider Surgery
DX: I70.245 Atherosclerosis of native arteries of left leg with ulceration of other part of foot (principal); I70.244 Atherosclerosis of native arteries of left leg with ulceration of heel and midfoot; L97.521 Non-pressure chronic ulcer of other part of left foot limited to breakdown of skin; L97.421 Non-pressure chronic ulcer of left heel and midfoot limited to breakdown of skin
CPT/HCPCS: 99213

== ENCOUNTER → 2022-10-12 13:14 | Outpatient (CLI) | payer MEDICARE, OTHER, SELFPAY ==
[2021-11-15 16:33] VITALS: BMI 28.3
== END ==
PROVIDERS: Family Provider Family Medicine; PCP Internal Medicine; Referring Provider Internal Medicine; Visit Provider Surgery
DX: E11.621 Type 2 diabetes mellitus with foot ulcer (principal); L97.521 Non-pressure chronic ulcer of other part of left foot limited to breakdown of skin; L97.421 Non-pressure chronic ulcer of left heel and midfoot limited to breakdown of skin
CPT/HCPCS: 99213

== ENCOUNTER → 2022-10-26 12:52 | Outpatient (CLI) | payer MEDICARE, OTHER, SELFPAY ==
[2021-11-15 16:33] VITALS: BMI 28.3
== END ==
PROVIDERS: Family Provider Family Medicine; PCP Internal Medicine; Referring Provider Internal Medicine; Visit Provider Surgery
DX: L97.521 Non-pressure chronic ulcer of other part of left foot limited to breakdown of skin (principal); L97.421 Non-pressure chronic ulcer of left heel and midfoot limited to breakdown of skin; I73.9 Peripheral vascular disease, unspecified; R23.0 Cyanosis; E11.621 Type 2 diabetes mellitus with foot ulcer; I10 Essential (primary) hypertension; M62.81 Muscle weakness (generalized); Z87.891 Personal history of nicotine dependence
CPT/HCPCS: 99213

== ENCOUNTER → 2022-11-09 12:55 | Outpatient (CLI) | payer MEDICARE, OTHER, SELFPAY ==
[2021-11-15 16:33] VITALS: BMI 28.3
== END ==
PROVIDERS: Family Provider Family Medicine; PCP Internal Medicine; Referring Provider Internal Medicine; Visit Provider Surgery
DX: I70.244 Atherosclerosis of native arteries of left leg with ulceration of heel and midfoot (principal); L97.521 Non-pressure chronic ulcer of other part of left foot limited to breakdown of skin; L97.421 Non-pressure chronic ulcer of left heel and midfoot limited to breakdown of skin; I96 Gangrene, not elsewhere classified; E11.51 Type 2 diabetes mellitus with diabetic peripheral angiopathy without gangrene; R23.0 Cyanosis; I70.245 Atherosclerosis of native arteries of left leg with ulceration of other part of foot
CPT/HCPCS: 97597

== ENCOUNTER → 2022-11-23 14:04 | Outpatient (CLI) | payer MEDICARE, OTHER, SELFPAY ==
[2021-11-15 16:33] VITALS: BMI 28.3
== END ==
PROVIDERS: Family Provider Family Medicine; PCP Internal Medicine; Referring Provider Internal Medicine; Visit Provider Surgery
DX: E11.621 Type 2 diabetes mellitus with foot ulcer (principal); E11.51 Type 2 diabetes mellitus with diabetic peripheral angiopathy without gangrene; L97.521 Non-pressure chronic ulcer of other part of left foot limited to breakdown of skin; I96 Gangrene, not elsewhere classified; L97.421 Non-pressure chronic ulcer of left heel and midfoot limited to breakdown of skin
CPT/HCPCS: 99213

== ENCOUNTER → 2022-11-30 13:02 | Outpatient (CLI) | payer MEDICARE, OTHER, SELFPAY ==
[2021-11-15 16:33] VITALS: BMI 28.3
== END ==
PROVIDERS: Family Provider Family Medicine; PCP Internal Medicine; Referring Provider Internal Medicine; Visit Provider Surgery
DX: I70.245 Atherosclerosis of native arteries of left leg with ulceration of other part of foot (principal); I70.244 Atherosclerosis of native arteries of left leg with ulceration of heel and midfoot; L97.521 Non-pressure chronic ulcer of other part of left foot limited to breakdown of skin; L97.422 Non-pressure chronic ulcer of left heel and midfoot with fat layer exposed; M79.672 Pain in left foot
CPT/HCPCS: 11042

== ENCOUNTER → 2022-12-07 12:57 | Outpatient (CLI) | payer MEDICARE, OTHER, SELFPAY ==
[2021-11-15 16:33] VITALS: BMI 28.3
== END ==
PROVIDERS: Family Provider Family Medicine; PCP Internal Medicine; Referring Provider Internal Medicine; Visit Provider Surgery
DX: I73.9 Peripheral vascular disease, unspecified (principal); L97.521 Non-pressure chronic ulcer of other part of left foot limited to breakdown of skin; L97.422 Non-pressure chronic ulcer of left heel and midfoot with fat layer exposed; I96 Gangrene, not elsewhere classified
CPT/HCPCS: 99213

== ENCOUNTER → 2022-12-21 13:58 | Outpatient (CLI) | payer MEDICARE, OTHER, SELFPAY ==
[2021-11-15 16:33] VITALS: BMI 28.3
== END ==
PROVIDERS: Family Provider Family Medicine; PCP Internal Medicine; Referring Provider Internal Medicine; Visit Provider Surgery
DX: I96 Gangrene, not elsewhere classified (principal); L97.422 Non-pressure chronic ulcer of left heel and midfoot with fat layer exposed; I70.244 Atherosclerosis of native arteries of left leg with ulceration of heel and midfoot
CPT/HCPCS: 99213; 99214

== ENCOUNTER → 2023-01-11 13:02 | Outpatient (CLI) | payer MEDICARE, OTHER, SELFPAY ==
[2021-11-15 16:33] VITALS: BMI 28.3
--- NOTE | 2023-01-11 | OV.WND_ITS ---
Progress Note Details Patient Name: Sarahi Gentile Patient Number: [id number] Clinician: Karyn Thompson Patient Date of : 1945 Physician / Pet Store Merchandiser: Chuy Cartagena Patient SUBJECTIVE Chief Complaint This information was obtained from the Patient. Wounds on left toe and heel Allergies Shellfish Containing Products HPI This information was obtained from the Patient. The following HPI elements were documented for the patient's wound: Location: L 2nd toe, L heel Duration: 02/12/22 Context: PAD The patient is a 77 year old female with diabetes mellitus, severe PAD, HTN, and COPD who returns today for follow up of gangrene of the left 2nd toe and left heel ulcer. The patient is currently receiving palliative wound care consisting of cleaning the left 2nd toe with alcohol and allowing to air dry 2 to 3 times a week. The patient is receiving dressing changes with Hydrofera blue and Adaptic to the left heel. She does have pain with dressing changes and with weight bearing. She has not had any significant drainage from her heel nor has she noted any redness or swelling. No fever or chills. She was previously hospitalized in [place] and underwent an extensive vascular workup. Arterial Doppler showed ABIs that could not be appreciated due to low flow, low monophasic flow noted at the ankles on each side. CTA revealed severe atherosclerosis of the abdominal aorta with large amount of clot, occlusion of the right common iliac artery, severe left-sided multi segmental atherosclerosis with multi segmental occlusion and severe narrowing. The patient was told that she was not a candidate for revascularization and that amputation of the toe would likely result and a BKA or possibly an above- knee amputation. On exam today the dry gangrene of the left 2nd toe is stable. No redness or drainage noted. Eschar on the heel is stable, the open area on the lateral side looks good with no redness or drainage noted. No changes in overall health since previous visit. The patient is using an E hob boot and wheelchair to minimize weight bearing. Family History This information was obtained from the Patient. Cancer- Sibling Diabetes- Mother Heart Disease- Mother, Father Social History This information was obtained from the Patient. 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 Yes? Complete all questions.: Yes Location of Cancer: Breast Surgical History This information was obtained from the Patient. Patient has a surgical history of: Hysterectomy- Left great toe amputation- (partial at age 17, second partial amputation in 1993) Review of Systems (ROS) This information was obtained from the Patient. Complaints and Symptoms Patient com plains of: Cardiovascular (Central): Dyspnea on Exertion Cardiovascular (Central/Peripheral): Lower extremity (leg) resting pain Co-Morbid Conditions: Diabetes, Hypertension, Peripheral Arterial Disease Constitutional Symptoms (General Health): Loss of Appetite, Marked Weight Change Musculoskeletal: Assistive Devices ( Wheelchair), Muscle Weakness Prior Wound History: Pain Patient denies com plaints or sy m ptom s related to: Cardiovascular (Central): Chest Pain Constitutional Symptoms (General Health): Chills, Fever Prior Wound History: Bleeding, Drainage, Erythema, Malodor Sarahi Gentile [id number] 1945 Respiratory: Cough, Shortness of Breath OBJECTIVE Vitals Height/Length: 66 in (167.64 cm), Weight: 133.1 lbs (60.5 kgs), BMI: 21.5, Temperature: 98.3 ?F (36.83 ?C), Pulse: 62 bpm, Respiratory Rate: 18 breaths/min, Blood Pressure: 175/66 mmHg, Pulse Oximetry: 97 %. General Notes CBG 107 per patient Physical Exam Constitutional: Vital signs reviewed and noted. Well developed, well nourished, and in no acute distress. Alert and oriented x3. Respiratory: Even respirations without use of accessory muscles. No intercoastal retractions noted. Even and non labored respiration. Integumentary (Hair, Skin): See wound assessment. Neurological: Sensation: Symmetric function by informal observation. Psychiatric: Orientation to time, place and person: Normal affect with normal thought pattern. Additional Information The patient's potential to heal is: poor. Lower Extremity Assessment Vascular Assessment Left Extremity Colors, hair growth, and conditions: Extremity Color: Black Hair Growth on Extremity: Yes Temperature of Extremity: Cool Capilary Refill: > 3 seconds Erythema: Yes Hyperpigmentation: No Lipodermatosclerosis: No Right Extremity Colors, hair growth, and conditions: Extremity Color: WNL Hair Growth on Extremity: Yes Temperature of Extremity: Cool Capilary Refill: > 3 seconds Erythema: No Hyperpigmentation: No Lipodermatosclerosis: No General Notes Left second toe is black Wound Assessment(s) Wound #1 Left Toe - Second is a chronic Eschar covered Arterial Ulcer and has received a status of Not Healed. Initial wound encounter measurements are 5.2cm length x 4.2cm width with no measurable depth, with an area of 21.84 sq cm. No tunneling has been noted. No sinus tract has been noted. No undermining has been noted. There was no drainage noted. The patient reports a wound pain of level 0/10. The wound margin is attached Wound bed has No, granulation, No slough, Yes eschar, No Sarahi Gentile [id number] 1945 epithelialization. The periwound skin exhibited cyanosis. The temperature of the periwound skin is Cool. Periwound skin does not exhibit signs or symptoms of infection. Additional Information Limited to breakdown of skin: No Wound #2 Left Heel is a chronic Full Thickness Arterial Ulcer and has received a status of Not Healed. Initial wound encounter measurements are 2.5cm length x 0.8cm width x 0.1 cm depth, with an area of 2 sq cm and a volume of 0.2 cubic cm. No tunneling has been noted. No sinus tract has been noted. No undermining has been noted. There is a Small amount of serous drainage noted which has no odor. The patient reports a wound pain of level 1/10. The wound margin is attached Wound bed has No, granulation, Yes slough, Yes eschar, No epithelialization. The periwound skin exhibited callus. The periwound skin did not exhibit brawny induration, edema, excoriation, induration, crepitus, fluctuance, rash, maceration, atrophie grazyna, cyanosis, ecchymosis, erythema, hemosiderosis, pallor and rubor. The periwound skin was dry/scaly. The periwound skin was not friable and moist. The temperature of the periwound skin is Cool. Periwound skin does not exhibit signs or symptoms of infection. Additional Information Limited to breakdown of skin: No ASSESSMENT Active Problems ICD-10 (Encounter Diagnosis) I73.9 - Peripheral vascular disease, unspecified (Encounter Diagnosis) I96 - Gangrene, not elsewhere classified (Encounter Diagnosis) L97.429 - Non-pressure chronic ulcer of left heel and midfoot with unspecified severity General Notes Dry gangrene left 2nd toe with no evidence for infection, ulcer left heel thick eschar and open area on lateral aspect, no sign of infection The following factors have been identified that may affect wound healing: Devitalized tissue Bioburden Arterial insufficiency Pressure Diabetes Goals: palliative wound care reduce risk of infection Plan: Continue to wash the toe with alcohol then allow to air dry. Continue dressing changes with Hydrofera blue to left heel. Continue E hob boot to reduce pressure to the heel. Follow up in 3 weeks for a recheck. PLAN Wound Orders: Sarahi Gentile [id number] 1945 Wound Orders: Wound #1 Left Toe - Second Hygiene May shower with wound protected, using a cast protector or plastic bag and tape Topical Treatments Other order - Alcohol wipe apply daily. Physician Review: Reviewed and evaluated labs. Discussed the Plan of Care @ bedside with - the patient and her Reviewed hospital records. I, as the physician, have reviewed the orders scribed by the center RN's and agree. Wound #2 Left Heel Hygiene May shower with wound protected, using a cast protector or plastic bag and tape Dressings Pack wound - Adaptic touch layer applied over wound bed. Primary dressing - Hydrofera blue cut to size of wound bed. Cover and secure with - Bordered dressing. Change Dressing - Two to three times a week. Physician Review: Reviewed and evaluated labs. Discussed the Plan of Care @ bedside with - the patient and her Reviewed hospital records. I, as the physician, have reviewed the orders scribed by the center RN's and agree. Additional Orders: Off-Loading Other order - Offloading boot while resting in bed or on couch, to prevent heel from pressing against surfaces. Wheelchair to keep weight off of Left foot. Follow-Up Appointments Return Appointment - Three weeks. Other information: If you develop fever, chills, increased pain, drainage, redness or swelling please call our office. If after hours, respond to the ER. Should you experience any significant changes in your wound(s) or have any questions regarding your home care instructions please contact the wound center @ [phone]. If after hours, contact your primary care physician or go to the hospital emergency room. We are placing an order for wound supplies on your behalf with [facility]. If you have not received your order within 3 business days, please call [facility] at [phone] to speak with a retail customer service specialist or Email: Scribing Attestation I attest, as the nurse, that I scribed these orders for the physician. Plan of Care: 01. ENSURE/ESTABLISH OPTIMAL BLOOD FLOW : - Complete lower extremity assessment - Perform non-invasive vascular testing (i.e. CARLTON) and document findings. Consider repeating when wound healing <40% after 30 days of wound care. 02. ASSESS FOR/TREAT INFECTION : - Evaluate for signs and symptoms of infection and document findings. - Obtain culture and sensitivity (CandS) or tissue culture when infection is suspected. (NOTE:) Consider repeating when wound healing <40% after 30 days of wound care. 03. DEBRIDE WEEKLY OR MORE OFTEN PRN : - Evaluate patient in center weekly to assess wound bed and margins for need for debridement. 04. OPTIMIZE GLUCOSE CONTROL and NUTRITION : - Order/review pertinent labs to evaluate renal function, glucose control, and nutritional status. - Complete a nutrition risk assessment. 05. OFFLOADING PLAN : - Evaluate plan for offloading Sarahi Gentile [id number] 1945 - Advise patient to offload the foot ulcer. (i.e. half shoe, surgical shoe, insert, custom shoe, felt and foam, cam walker, multipodus splint, total contact cast, bi-valve cast, posterior splint). - Provide education materials/discuss offloading strategies as appropriate. - Assess tolerance and compliance of offloading. 06. OPTIMIZE HOST FACTORS: - Assess and review patient history for wound etiology, co-morbid conditions, medication regime, and smoking history. - Assess lifestyle factors such as smoking, alcohol/drug abuse, eating habits/malnutrition and activity level. 07. DRESSING SELECTION : - Evaluate for dressing-related factors, such as availability, wear time, adaptability and use to better optimize wound healing and patient compliance. - Choose topical treatments and/or dressing based on wound type and appearance, periwound skin condition, wound size and depth, anatomic location, volume of exudate, edema in the lower extremities, and risk or presence of infection. 08. ADVANCED MODALITIES : - Set treatment goals according to patient and/or caregiver???s ability/ compliance. - Re-evaluate plan of care if no evidence of healing (40% in 4 weeks). 09. FALL PREVENTION : - Complete fall assessment. - Provide education materials/discuss prevention strategies as appropriate. 10. PAIN MANAGEMENT : - Complete pain assessment 11. MEASURABLE GOALS for Wound Healing and/or Hyperbaric Oxygen Therapy : - Implement protocols to promote healing and impede further injury - Reduce risk for infection 12. DURATION/FREQUENCY of Wound Care Visits : - 2x monthly for next 30 days Electronic Signature(s) Signed By: Date: Chuy Cartagena MD 01/11/2023 15:25:29 (PT) Entered By: Chuy Cartagena MD on 01/11/2023 15:25:06 (PT) Sarahi Gentile [id number] 1945
== END ==
PROVIDERS: Family Provider Family Medicine; PCP Internal Medicine; Referring Provider Internal Medicine; Visit Provider Surgery
DX: I73.9 Peripheral vascular disease, unspecified (principal); I96 Gangrene, not elsewhere classified; L97.429 Non-pressure chronic ulcer of left heel and midfoot with unspecified severity
CPT/HCPCS: 99213

== ENCOUNTER → 2023-02-15 14:13 | Outpatient (CLI) | payer MEDICARE, OTHER, SELFPAY ==
[2021-11-15 16:33] VITALS: BMI 28.3
== END ==
LOC: WC 14:15
PROVIDERS: Family Provider Family Medicine; PCP Internal Medicine; Referring Provider Internal Medicine; Visit Provider Surgery
DX: L97.521 Non-pressure chronic ulcer of other part of left foot limited to breakdown of skin (principal); L97.422 Non-pressure chronic ulcer of left heel and midfoot with fat layer exposed; I73.9 Peripheral vascular disease, unspecified; R23.0 Cyanosis; M62.81 Muscle weakness (generalized); E11.621 Type 2 diabetes mellitus with foot ulcer; I10 Essential (primary) hypertension; J44.9 Chronic obstructive pulmonary disease, unspecified
CPT/HCPCS: 11042; 99213

== ENCOUNTER → 2023-03-08 14:34 | Outpatient (CLI) | payer MEDICARE, OTHER, SELFPAY ==
[2021-11-15 16:33] VITALS: BMI 28.3
== END ==
LOC: WC 14:35
PROVIDERS: Family Provider Family Medicine; PCP Internal Medicine; Referring Provider Internal Medicine; Visit Provider Surgery
DX: L97.521 Non-pressure chronic ulcer of other part of left foot limited to breakdown of skin (principal); L97.422 Non-pressure chronic ulcer of left heel and midfoot with fat layer exposed; I73.9 Peripheral vascular disease, unspecified; I96 Gangrene, not elsewhere classified; L84 Corns and callosities; R23.0 Cyanosis; R23.4 Changes in skin texture; E11.621 Type 2 diabetes mellitus with foot ulcer; I10 Essential (primary) hypertension; J44.9 Chronic obstructive pulmonary disease, unspecified
CPT/HCPCS: 11042; 97597; 97598

== ENCOUNTER → 2023-03-22 13:18 | Outpatient (CLI) | payer MEDICARE, OTHER, SELFPAY ==
[2021-11-15 16:33] VITALS: BMI 28.3
--- NOTE | 2023-03-22 | OV.WND_ITS ---
Progress Note Details Patient Name: Sarahi Gentile Patient Number: [id number] Clinician: Bella Tadeo RN Patient Date of : 1945 Physician / Caving Guide: Chuy Cartagena Patient SUBJECTIVE Chief Complaint This information was obtained from the Patient. To have my left foot evaluated Allergies Shellfish Containing Products HPI This information was obtained from the Patient. 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 The patient is currently receiving palliative wound care consisting of cleaning the toes with alcohol and allowing to air dry 2 to 3 times a week. The patient is receiving dressing changes with Hydrofera blue and Adaptic to the left heel. She does have pain with dressing changes and with weight bearing however pain has improved. She has not had any significant drainage from her heel nor has she noted any redness or swelling. No fever or chills. Arterial Doppler showed ABIs that could not be appreciated due to low flow, low monophasic flow noted at the ankles on each side. CTA revealed severe atherosclerosis of the abdominal aorta with large amount of clot, occlusion of the right common iliac artery, severe left- sided multi segmental atherosclerosis with multi segmental occlusion and severe narrowing. The patient was told that she was not a candidate for revascularization and that amputation of the toe would likely result and a BKA or possibly an above-knee amputation. On exam today the dry gangrene of the left 2nd toe is stable. Area of dry gangrene on the dorsum of the left 3rd toe is slightly larger. No redness or drainage noted. Ulcer on the heel is continuing to improve and has no sign of infection. No changes in overall health since previous visit. The patient is using an E hob boot and wheelchair to minimize weight bearing. Family History This information was obtained from the Patient. Cancer- Sibling Diabetes- Mother Heart Disease- Mother, Father Social History This information was obtained from the Patient. 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 Yes? Complete all questions.: Yes Location of Cancer: Breast Surgical History This information was obtained from the Patient. Patient has a surgical history of: Hysterectomy- Left great toe amputation- (partial at age 17, second partial amputation in 1993) Review of Systems (ROS) This information was obtained from the Patient. Complaints and Symptoms Patient com plains of: Cardiovascular (Central): Dyspnea on Exertion Cardiovascular (Central/Peripheral): Lower extremity (leg) resting pain Co-Morbid Conditions: Diabetes, Hypertension, Peripheral Arterial Disease Constitutional Symptoms (General Health): Loss of Appetite, Marked Weight Change Musculoskeletal: Assistive Devices ( Wheelchair), Muscle Weakness Prior Wound History: Pain Patient denies com plaints or sy m ptom s related to: Cardiovascular (Central): Chest Pain Constitutional Symptoms (General Health): Chills, Fever Prior Wound History: Bleeding, Drainage, Erythema, Malodor Respiratory: Cough, Shortness of Breath Sarahi Gentile [id number] 1945 OBJECTIVE Vitals Height/Length: 66 in (167.64 cm), Weight: 126.6 lbs (57.55 kgs), BMI: 20.4, Temperature: 98.1 ?F (36.72 ?C), Pulse: 72 bpm, Respiratory Rate: 18 breaths/min, Blood Pressure: 163/60 mmHg, Pulse Oximetry: 96 %. General Notes CBG per Pt: 113. Physical Exam Constitutional: Vital signs reviewed and noted. Generalized weakness. In no apparent distress. Respiratory: Even respirations without use of accessory muscles. No intercoastal retractions noted. Even and non labored respiration. Integumentary (Hair, Skin): See wound assessment. Neurological: Sensation: Symmetric function by informal observation. Psychiatric: Orientation to time, place and person: Normal affect with normal thought pattern. Additional Information The patient's potential to heal is: poor. Lower Extremity Assessment Vascular Assessment Left Extremity Colors, hair growth, and conditions: Extremity Color: Black Hair Growth on Extremity: Yes Temperature of Extremity: Cool Capilary Refill: > 3 seconds Erythema: Yes Hyperpigmentation: No Lipodermatosclerosis: No Right Extremity Colors, hair growth, and conditions: Extremity Color: WNL Hair Growth on Extremity: Yes Temperature of Extremity: Cool Capilary Refill: > 3 seconds Erythema: No Hyperpigmentation: No Lipodermatosclerosis: No General Notes Left second toe is black. Wound Assessment(s) Wound #1 Left Toe - Second is a chronic Eschar covered Arterial Ulcer and has received a status of Not Healed. Initial wound encounter measurements are 5.2cm length x 4.5cm width with no measurable depth, with an area of 23.4 sq cm. No tunneling has been noted. No sinus tract has been noted. No undermining has been noted. There was no drainage noted. The patient reports a wound pain of level 0/10. The wound margin is attached Wound bed has No, granulation, No slough, Yes eschar, No epithelialization. The periwound skin exhibited cyanosis. The periwound skin did not exhibit brawny induration, edema, Sarahi Gentile [id number] 1945 excoriation, induration, callus, crepitus, fluctuance, rash, maceration, atrophie grazyna, ecchymosis, erythema, hemosiderosis, pallor and rubor. The periwound skin was dry/scaly. The periwound skin was not friable and moist. The temperature of the periwound skin is Cool. Periwound skin does not exhibit signs or symptoms of infection. Additional Information Limited to breakdown of skin: No Wound #2 Left Heel is a chronic Full Thickness Arterial Ulcer and has received a status of Not Healed. Initial wound encounter measurements are 0.5cm length x 0.3cm width x 0.2 cm depth, with an area of 0.15 sq cm and a volume of 0.03 cubic cm. Adipose is exposed. No tunneling has been noted. No sinus tract has been noted. No undermining has been noted. There is a Small amount of serous drainage noted which has no odor. The patient reports a wound pain of level 2/10. The wound margin is attached Wound bed has Yes, pink, firm, granulation, Yes slough, No eschar, Yes epithelialization. The periwound skin did not exhibit brawny induration, edema, excoriation, induration, callus, crepitus, fluctuance, rash, maceration, atrophie grazyna, cyanosis, ecchymosis, erythema, hemosiderosis, pallor and rubor. The periwound skin was not friable, dry/scaly and moist. The temperature of the periwound skin is Cool. Periwound skin does not exhibit signs or symptoms of infection. Additional Information Other devitalized tissue present: biofilm Limited to breakdown of skin: No Wound #3 Left, Anterior Toe - Third is an Eschar covered Arterial Ulcer and has received a status of Not Healed. Initial wound encounter measurements are 0.4cm length x 0.9cm width with no measurable depth, with an area of 0.36 sq cm. No tunneling has been noted. No sinus tract has been noted. No undermining has been noted. There was no drainage noted. The patient reports a wound pain of level 2/10. The wound margin is callus Wound bed has No, granulation, No slough, Yes eschar, No epithelialization. The periwound skin exhibited callus. The periwound skin did not exhibit brawny induration, edema, excoriation, induration, crepitus, fluctuance, rash, maceration, atrophie grazyna, cyanosis, ecchymosis, erythema, hemosiderosis, pallor and rubor. The periwound skin was not friable, dry/scaly and moist. The temperature of the periwound skin is Cool. Periwound skin does not exhibit signs or symptoms of infection. Additional Information Limited to breakdown of skin: No ASSESSMENT Active Problems ICD-10 (Encounter Diagnosis) I73.9 - Peripheral vascular disease, unspecified (Encounter Diagnosis) I96 - Gangrene, not elsewhere classified (Encounter Diagnosis) L97.429 - Non-pressure chronic ulcer of left heel and midfoot with unspecified severity General Notes Dry gangrene left 2nd toe and dorsum 3rd toe with no evidence for infection, ulcer left heel much improved The following factors have been identified that may affect wound healing: Devitalized tissue Bioburden Arterial insufficiency Pressure Sarahi Gentile [id number] 1945 Diabetes Goals: palliative wound care reduce risk of infection Plan: Mechanial debridement left heel, continue to wash the toe with alcohol then allow to air dry. Continue dressing changes with Hydrofera blue and Adaptic to left heel. Continue E hob boot to reduce pressure to the heel. Follow up in 2 weeks for a recheck. PROCEDURES Wound #1 Wound #1 (Arterial Ulcer) is located on the left toe - second. A non-selective mechanical debridement was performed by Chuy Cartagena MD. Non-viable tissue was removed. The procedure was tolerated well with a pain level of 4 throughout and a pain level of 1 following the procedure. Post Debridement Measurements: 5.2cm length x 4.5cm width x 0cm depth; with an area of 23.4 sq cm and a volume of 0 cubic cm. General Notes Dried exudate and epidermis removed with curette. Additional Information Method Used: Other: Describe in notes section Devitalized Tissue Removed: Exudate Wound #3 Wound #3 (Arterial Ulcer) is located on the left, anterior toe - third. A non- selective mechanical debridement with a total area debrided of 0.36 sq cm. was performed by Chuy Cartagena MD. Non- viable tissue was removed. The procedure was tolerated well with a pain level of 4 throughout and a pain level of 1 following the procedure. Post Debridement Measurements: 0.4cm length x 0.9cm width x 0cm depth; with an area of 0.36 sq cm and a volume of 0 cubic cm. General Notes Dried exudate and epidermis removed with curette. Additional Information Method Used: Other: Describe in notes section Devitalized Tissue Removed: Exudate PLAN Wound Orders: Wound #1 Left Toe - Second Hygiene May shower with wound protected, using a cast protector or plastic bag and tape Topical Treatments Other order - Alcohol wipe apply daily. Physician Review: Reviewed and evaluated labs. Discussed the Plan of Care @ bedside with - the patient and Reviewed hospital records. I, as the physician, have reviewed the orders scribed by the center RN's and agree. Sarahi Gentile [id number] 1945 Wound #2 Left Heel Hygiene May shower with wound protected, using a cast protector or plastic bag and tape Dressings Pack wound - Adaptic touch layer applied over wound bed. Primary dressing - Hydrofera blue cut to size of wound bed. Cover and secure with - Hypafix tape, may use square bandaid at home. Change Dressing - Two to three times a week. Wound #3 Left, Anterior Toe - Third Hygiene May shower with wound protected, using a cast protector or plastic bag and tape Topical Treatments Other order - Alcohol wipe apply daily. Additional Orders: Off-Loading Other order - Offloading boot while resting in bed or on couch, to prevent heel from pressing against surfaces. Wheelchair to keep weight off of Left foot. Follow-Up Appointments Return Appointment - Two weeks. Other information: If you develop fever, chills, increased pain, drainage, redness or swelling please call our office. If after hours, respond to the ER. Should you experience any significant changes in your wound(s) or have any questions regarding your home care instructions please contact the wound center @ [phone]. If after hours, contact your primary care physician or go to the hospital emergency room. Scribing Attestation I attest, as the nurse, that I scribed these orders for the physician. Plan of Care: 01. ENSURE/ESTABLISH OPTIMAL BLOOD FLOW : - Complete lower extremity assessment - Perform non-invasive vascular testing (i.e. CARLTON) and document findings. Consider repeating when wound healing <40% after 30 days of wound care. 02. ASSESS FOR/TREAT INFECTION : - Evaluate for signs and symptoms of infection and document findings. - Obtain culture and sensitivity (CandS) or tissue culture when infection is suspected. (NOTE:) Consider repeating when wound healing <40% after 30 days of wound care. 03. DEBRIDE WEEKLY OR MORE OFTEN PRN : - Evaluate patient in center weekly to assess wound bed and margins for need for debridement. 04. OPTIMIZE GLUCOSE CONTROL and NUTRITION : - Order/review pertinent labs to evaluate renal function, glucose control, and nutritional status. - Complete a nutrition risk assessment. 05. OFFLOADING PLAN : - Evaluate plan for offloading - Advise patient to offload the foot ulcer. (i.e. half shoe, surgical shoe, insert, custom shoe, felt and foam, cam walker, multipodus splint, total contact cast, bi-valve cast, posterior splint). - Provide education materials/discuss offloading strategies as appropriate. - Assess tolerance and compliance of offloading. 06. OPTIMIZE HOST FACTORS: - Assess and review patient history for wound etiology, co-morbid conditions, medication regime, and smoking history. - Assess lifestyle factors such as smoking, alcohol/drug abuse, eating habits/malnutrition and activity level. 07. DRESSING SELECTION : - Evaluate for dressing-related factors, such as availability, wear time, adaptability and use to better Sarahi Gentile [id number] 1945 optimize wound healing and patient compliance. - Choose topical treatments and/or dressing based on wound type and appearance, periwound skin condition, wound size and depth, anatomic location, volume of exudate, edema in the lower extremities, and risk or presence of infection. 08. ADVANCED MODALITIES : - Set treatment goals according to patient and/or caregiver???s ability/ compliance. - Re-evaluate plan of care if no evidence of healing (40% in 4 weeks). 09. FALL PREVENTION : - Complete fall assessment. - Provide education materials/discuss prevention strategies as appropriate. 10. PAIN MANAGEMENT : - Complete pain assessment 11. MEASURABLE GOALS for Wound Healing and/or Hyperbaric Oxygen Therapy : - Implement protocols to promote healing and impede further injury - Reduce risk for infection 12. DURATION/FREQUENCY of Wound Care Visits : - 2x monthly for next 30 days Electronic Signature(s) Signed By: Date: Chuy Cartagena MD 03/22/2023 15:40:26 (PT) Entered By: Chuy Cartagena MD on 03/22/2023 14:41:20 (PT) Sarahi Gentile [id number] 1945
== END ==
PROVIDERS: Family Provider Family Medicine; PCP Internal Medicine; Referring Provider Internal Medicine; Visit Provider Surgery
DX: L97.521 Non-pressure chronic ulcer of other part of left foot limited to breakdown of skin (principal); L97.422 Non-pressure chronic ulcer of left heel and midfoot with fat layer exposed; I96 Gangrene, not elsewhere classified; I73.9 Peripheral vascular disease, unspecified; R23.0 Cyanosis; L84 Corns and callosities; E11.621 Type 2 diabetes mellitus with foot ulcer; I10 Essential (primary) hypertension
CPT/HCPCS: 97602; 99213

== ENCOUNTER → 2023-04-05 14:53 | Outpatient (CLI) | payer MEDICARE, OTHER, SELFPAY ==
[2021-11-15 16:33] VITALS: BMI 28.3
== END ==
LOC: WC 14:54
PROVIDERS: Family Provider Family Medicine; PCP Internal Medicine; Referring Provider Internal Medicine; Visit Provider Surgery
DX: L97.521 Non-pressure chronic ulcer of other part of left foot limited to breakdown of skin (principal); L97.422 Non-pressure chronic ulcer of left heel and midfoot with fat layer exposed; I73.9 Peripheral vascular disease, unspecified; I96 Gangrene, not elsewhere classified; R23.0 Cyanosis; L84 Corns and callosities; E11.621 Type 2 diabetes mellitus with foot ulcer
CPT/HCPCS: 99213

== ENCOUNTER → 2023-04-19 14:01 | Outpatient (CLI) | payer MEDICARE, OTHER, SELFPAY ==
[2021-11-15 16:33] VITALS: BMI 28.3
== END ==
LOC: WC 14:03
PROVIDERS: Family Provider Family Medicine; PCP Internal Medicine; Referring Provider Internal Medicine; Visit Provider Nurse Practitioner Family
DX: L97.521 Non-pressure chronic ulcer of other part of left foot limited to breakdown of skin (principal); L97.422 Non-pressure chronic ulcer of left heel and midfoot with fat layer exposed; I73.9 Peripheral vascular disease, unspecified; R23.0 Cyanosis; L84 Corns and callosities; I10 Essential (primary) hypertension
CPT/HCPCS: 11042; 99214

== ENCOUNTER → 2023-05-03 13:04 | Outpatient (CLI) | payer MEDICARE, OTHER, SELFPAY ==
[2021-11-15 16:33] VITALS: BMI 28.3
== END ==
PROVIDERS: Family Provider Family Medicine; PCP Internal Medicine; Referring Provider Internal Medicine; Visit Provider Surgery
DX: L97.422 Non-pressure chronic ulcer of left heel and midfoot with fat layer exposed (principal); I73.9 Peripheral vascular disease, unspecified; L97.528 Non-pressure chronic ulcer of other part of left foot with other specified severity; I96 Gangrene, not elsewhere classified; L84 Corns and callosities; I10 Essential (primary) hypertension; E11.621 Type 2 diabetes mellitus with foot ulcer; J44.9 Chronic obstructive pulmonary disease, unspecified; M62.81 Muscle weakness (generalized)
CPT/HCPCS: 11042; 99213

== ENCOUNTER → 2023-05-17 13:15 | Outpatient (CLI) | payer MEDICARE, OTHER, SELFPAY ==
[2021-11-15 16:33] VITALS: BMI 28.3
== END ==
LOC: WC 13:17
PROVIDERS: Family Provider Family Medicine; PCP Internal Medicine; Referring Provider Internal Medicine; Visit Provider Surgery
DX: L97.522 Non-pressure chronic ulcer of other part of left foot with fat layer exposed (principal); I96 Gangrene, not elsewhere classified; L97.422 Non-pressure chronic ulcer of left heel and midfoot with fat layer exposed; I73.9 Peripheral vascular disease, unspecified; L84 Corns and callosities; R23.0 Cyanosis; R23.4 Changes in skin texture; I10 Essential (primary) hypertension; J44.9 Chronic obstructive pulmonary disease, unspecified; E11.621 Type 2 diabetes mellitus with foot ulcer
CPT/HCPCS: 11042; 97597

== ENCOUNTER → 2023-05-31 14:16 | Outpatient (CLI) | payer MEDICARE, OTHER, SELFPAY ==
[2021-11-15 16:33] VITALS: BMI 28.3
== END ==
LOC: WC 14:17
PROVIDERS: Family Provider Family Medicine; PCP Internal Medicine; Referring Provider Internal Medicine; Visit Provider Surgery
DX: L97.522 Non-pressure chronic ulcer of other part of left foot with fat layer exposed (principal); I73.9 Peripheral vascular disease, unspecified; E23.0 Hypopituitarism; I96 Gangrene, not elsewhere classified; R23.4 Changes in skin texture; L84 Corns and callosities; E11.621 Type 2 diabetes mellitus with foot ulcer; M62.81 Muscle weakness (generalized); I10 Essential (primary) hypertension; J44.9 Chronic obstructive pulmonary disease, unspecified; Z87.891 Personal history of nicotine dependence
CPT/HCPCS: 11042; 11045; 99213

== ENCOUNTER → 2023-06-14 15:16 | Outpatient (CLI) | payer MEDICARE, OTHER, SELFPAY ==
[2021-11-15 16:33] VITALS: BMI 28.3
== END ==
LOC: WC 15:17
PROVIDERS: Family Provider Family Medicine; PCP Internal Medicine; Referring Provider Internal Medicine; Visit Provider Surgery
DX: E11.621 Type 2 diabetes mellitus with foot ulcer (principal); L97.522 Non-pressure chronic ulcer of other part of left foot with fat layer exposed; L97.422 Non-pressure chronic ulcer of left heel and midfoot with fat layer exposed; I96 Gangrene, not elsewhere classified; I73.9 Peripheral vascular disease, unspecified; L84 Corns and callosities; L53.9 Erythematous condition, unspecified
CPT/HCPCS: 99213

== ENCOUNTER → 2023-06-28 14:38 | Outpatient (CLI) | payer MEDICARE, OTHER, SELFPAY ==
[2021-11-15 16:33] VITALS: BMI 28.3
== END ==
LOC: WC 14:39
PROVIDERS: Family Provider Family Medicine; PCP Internal Medicine; Referring Provider Internal Medicine; Visit Provider Surgery
DX: L97.522 Non-pressure chronic ulcer of other part of left foot with fat layer exposed (principal); L97.422 Non-pressure chronic ulcer of left heel and midfoot with fat layer exposed; I73.9 Peripheral vascular disease, unspecified; I96 Gangrene, not elsewhere classified; L84 Corns and callosities; L53.9 Erythematous condition, unspecified; I10 Essential (primary) hypertension; E11.621 Type 2 diabetes mellitus with foot ulcer
CPT/HCPCS: 97602; 99213

== ENCOUNTER → 2023-07-11 10:24 | Outpatient (CLI) | payer MEDICARE, OTHER, SELFPAY ==
[2021-11-15 16:33] VITALS: BMI 28.3
== END ==
PROVIDERS: Family Provider Family Medicine; PCP Internal Medicine; Referring Provider Internal Medicine; Visit Provider Surgery
DX: L97.522 Non-pressure chronic ulcer of other part of left foot with fat layer exposed (principal); L97.422 Non-pressure chronic ulcer of left heel and midfoot with fat layer exposed; I73.9 Peripheral vascular disease, unspecified; L84 Corns and callosities; L53.9 Erythematous condition, unspecified; R23.0 Cyanosis; I10 Essential (primary) hypertension; J44.9 Chronic obstructive pulmonary disease, unspecified; E11.621 Type 2 diabetes mellitus with foot ulcer
CPT/HCPCS: 87070; 87075; 87077; 87147; 87186; 87205; 99214